=== PATIENT | male | born 1950 | race Caucasian/White ===

== ENCOUNTER 2018-01-01 21:45 | Inpatient (IN) ==
[2018-01-01] MEDS ORDERED: 0.9 % Sodium Chloride 1,000 ML IVC ONE (22:19)
[2018-01-01] MEDS ORDERED: *HR* Heparin 5,000 UNIT/ML VIAL IVP PRN ×2 (22:28)
[2018-01-01] MEDS ORDERED: *HR* Heparin 5,000 UNIT/ML VIAL IVP ONE (22:28)
[2018-01-01 22:29] LABS: Basophils % 0.2 %; Eosinophils % 0.1 %; Hematocrit 48.1 % (37.5-50.1); Hemoglobin 16.4 g/dL (12.9-16.9); Immature Granulocytes % 0.9 % (0-4); Lymphocytes # 1.9 K/mcL (0.6-4.6); Lymphocytes % 10.7 %; Mean Corpuscular HGB Conc 34.1 g/dL (31.6-35.5); Mean Corpuscular Volume 82.2 fL (83.0-100.0); Mean Platelet Volume 10.2 fL (9.4-12.4); Monocytes # 0.8 K/mcL (0.0-1.3); Monocytes % 4.5 %; Neutrophils # 14.6 K/mcL (1.6-8.9); Platelet Count 423 K/mcL (140-400); Red Blood Count 5.85 M/mcL (4.19-5.50); Red Cell Distribution Width 12.1 % (11.5-14.5); Segmented Neutrophils % 83.6 %
[2018-01-01] MEDS ORDERED: Ondansetron 4 MG/2 ML VIAL IVP ONE (22:30)
--- NOTE | 2018-01-01 22:31 | Emergency Department Note ---
Disposition Clinical Impression: ST elevation (STEMI) myocardial infarction Qualifiers: Involved coronary artery: other inferior wall coronary artery Qualified Code(s) : I21.19 - ST elevation (STEMI) myocardial infarction involving other coronary artery of inferior wall Nausea & vomiting Qualifiers: Vomiting type: unspecified Vomiting Intractability: non-intractable Qualified Code(s): R11.2 - Nausea with vomiting, unspecified Disposition: Admitted As Inpatient Condition: Undetermined Time of Disposition: 22:34 General Adult HPI - General Chief complaint: ED Fever Stated complaint: fever/vomiting Time Seen by Provider: 01/01/18 21:57 Source: patient, family Mode of arrival: ambulatory Limitations: no limitations Nursing Notes Reviewed: Yes Vital Signs Reviewed: Yes - History of Present Illness HPI Narrative: 67-year-old male with history of diabetes, hypertension, hyperlipidemia, arrives to the emergency department with nausea and ill feeling over the past 4- 5 days. The patient states he was initially constipated 70 took some MiraLAX and states that since then he has had diarrhea. The patient denies any associated abdominal pain. The patient decided come to the emergency department because he was not feeling well. Family was very concerned about dehydration on the patient. Upon arrival to the emergency department a noted the patient was mildly hypoxic with an O2 saturation of 92%. The patient denied any difficulty breathing or chest pain but does admit to some intermittent episodes of epigastric pain without any defined tenderness on evaluation. The patient was hooked up to the monitor with ST elevation was noted initially. An EKG was immediately performed and the patient was found to have ST elevation in leads 2, 3, aVF. A STEMI alert was called. The patient was made aware and agrees to plan. Pain Scale: 0 - Related Data Home Medications Medication Instructions Recorded Confirmed Advair 250-50 Diskus 12/26/17 Bydureon 12/26/17 Cialis 12/26/17 Fluticasone Propionate 12/26/17 GlipiZIDE 12/26/17 Lansoprazole 12/26/17 Lisinopril-HCTZ 20-12.5 12/26/17 Metformin HCl 12/26/17 Olmesartan Medoxomil 12/26/17 Prostate Health Caplet 12/26/17 Simvastatin 12/26/17 Toprol Xl 12/26/17 Trulicity 12/26/17 Previous Rx's Medication Instructions Recorded Promethazine [Phenergan] 25 mg PO Q6HR PRN #10 tablet 12/26/17 Allergies Allergy/AdvReac Type Severity Reaction Status Date / Time Penicillins AdvReac Hives Verified 12/26/17 11:19 All systems ED: reviewed and negative except as stated. Constitutional: Reports: weakness. Denies: fever, chills Cardiovascular: Denies: chest pain Respiratory: Denies: cough, dyspnea, sputum production Gastrointestinal: Reports: nausea, vomiting, diarrhea. Denies: abdominal pain, constipation, hematemesis, melena, hematochezia Genitourinary: Denies: urgency, dysuria Musculoskeletal: Denies: back pain Integumentary: Denies: rash Neurological: Reports: weakness. Denies: headache, numbness, paresthesias, confusion Past Medical History - Past Medical History Attestation: Yes The following information was validated with the patient. Source: patient, old records reviewed Medical history: Reports: diabetes, hypertension Surgical history: Reports: non-contributory Psychiatric history: Reports: no psych history - Social History Smoking Status: Never smoker Smokeless Tobacco Status: No Alcohol use: Reports: none Drug use: Reports: none Physical Exam - General Limitations: no limitations General appearance: alert, anxious, other (diaphoretic) - Head Head exam: atraumatic, normocephalic, normal inspection - Eye Eye exam: Present: normal appearance, PERRL, EOMI - ENT ENT exam: normal exam, normal oropharynx, mucous membranes dry - Neck Neck exam: Present: normal inspection, full ROM, trachea midline - Chest Chest inspection: Present: normal inspection, symmetric chest wall rise - Respiratory Respiratory exam: Present: normal lung sounds bilaterally - Cardiovascular Cardiovascular exam: Present: regular rate, normal rhythm, normal heart sounds - Abdominal Exam Abdominal exam: Present: soft, Non-Tender. Absent: tenderness, distention, guarding, rebound, rigidity, pulsatile mass, hernia, scar - Extremities Exam Extremities exam: Present: normal inspection, full ROM. Absent: tenderness, pedal edema - Neurological Exam Neurological exam: Present: alert, oriented X3 - Skin Skin exam: Present: warm, dry, intact, normal color Course - Consultations Consultation #1: We spoke with Dr. Huitron and cardiology who will take the patient to the Operations Forester at this time. He was sent the image of the EKG. Time: 22:33 Vital Signs Temperature 97.8 F 01/01/18 21:47 Pulse Rate 88 01/01/18 21:47 Respiratory Rate 20 01/01/18 21:47 Blood Pressure 138/85 01/01/18 21:47 O2 Sat by Pulse Oximetry 92 01/01/18 21:47 Temperature 97.4 F L 01/02/18 03:44 Pulse Rate 80 01/02/18 03:11 Respiratory Rate 14 01/02/18 03:00 Blood Pressure 119/74 01/02/18 03:00 O2 Sat by Pulse Oximetry 98 01/02/18 03:00 Oxygen Delivery Oxygen Delivery Nasal Cannula Medical Decision Making - Lab Data Result diagrams: 01/02/18 03:43 01/02/18 03:43 Lab Results 01/01/18 01/01/18 01/01/18 Range/Units 22:09 22:09 22:09 WBC 17.5 H (4.3-11.1) K/mcL RBC 5.85 H (4.19-5.50) M/mcL Hgb 16.4 (12.9-16.9) g/dL Hct 48.1 (37.5-50.1) % MCV 82.2 L (83.0-100.0) fL MCH 28.0 (28.0-33.3) pg MCHC 34.1 (31.6-35.5) g/dL RDW 12.1 (11.5-14.5) % Plt Count 423 H (140-400) K/mcL MPV 10.2 (9.4-12.4) fL Immature Gran % 0.9 (0-4) % Seg Neutrophils % 83.6 % Lymphocytes % 10.7 % Monocytes % 4.5 % Eosinophils % 0.1 % Basophils % 0.2 % Neutrophils # 14.6 H (1.6-8.9) K/mcL Lymphocytes # 1.9 (0.6-4.6) K/mcL Monocytes # 0.8 (0.0-1.3) K/mcL Eosinophils # 0.0 (0.0-0.6) K/mcL Basophils # 0.0 (0.0-0.2) K/mcL PT 12.4 H (9.4-12.1) Seconds INR 1.1 APTT 29.3 (26.0-36.0) Seconds Sodium 131 L (136-145) mEq/L Potassium 3.7 (3.5-5.1) mEq/L Chloride 93 L (98-107) mEq/L Carbon Dioxide 20 L (23-29) mEq/L BUN 76 H (8-23) mg/dL Creatinine 2.94 H (0.70-1.30) mg/dL Est GFR ( Amer) 26 L (> 60) Est GFR (Non-Af Amer) 22 L (> 60) BUN/Creatinine Ratio 26 (6-26) Glucose 269 H (70-105) mg/dL Calculated Osmolality 304 H (280-300) Calcium 9.0 (8.6-10.3) mg/dL Magnesium (1.6-2.6) mg/dL Total Bilirubin 0.5 (0.3-1.0) mg/dL AST 12 L (13-39) Units/L ALT 17 (7-52) Units/L Alkaline Phosphatase 22 L (34-104) Units/L Troponin I 0.77 H* (< 0.04) ng/mL Serum Total Protein 7.5 (6.4-8.9) g/dL Albumin 4.4 (3.5-5.7) g/dL Globulin 3.1 (2.4-3.5) g/dL Albumin/Globulin Ratio 1.4 (1.1-2.2) 01/01/18 Range/Units 22:09 WBC (4.3-11.1) K/mcL RBC (4.19-5.50) M/mcL Hgb (12.9-16.9) g/dL Hct (37.5-50.1) % MCV (83.0-100.0) fL MCH (28.0-33.3) pg MCHC (31.6-35.5) g/dL RDW (11.5-14.5) % Plt Count (140-400) K/mcL MPV (9.4-12.4) fL Immature Gran % (0-4) % Seg Neutrophils % % Lymphocytes % % Monocytes % % Eosinophils % % Basophils % % Neutrophils # (1.6-8.9) K/mcL Lymphocytes # (0.6-4.6) K/mcL Monocytes # (0.0-1.3) K/mcL Eosinophils # (0.0-0.6) K/mcL Basophils # (0.0-0.2) K/mcL PT (9.4-12.1) Seconds INR APTT (26.0-36.0) Seconds Sodium (136-145) mEq/L Potassium (3.5-5.1) mEq/L Chloride (98-107) mEq/L Carbon Dioxide (23-29) mEq/L BUN (8-23) mg/dL Creatinine (0.70-1.30) mg/dL Est GFR ( Amer) (> 60) Est GFR (Non-Af Amer) (> 60) BUN/Creatinine Ratio (6-26) Glucose (70-105) mg/dL Calculated Osmolality (280-300) Calcium (8.6-10.3) mg/dL Magnesium 1.2 L (1.6-2.6) mg/dL Total Bilirubin (0.3-1.0) mg/dL AST (13-39) Units/L ALT (7-52) Units/L Alkaline Phosphatase (34-104) Units/L Troponin I (< 0.04) ng/mL Serum Total Protein (6.4-8.9) g/dL Albumin (3.5-5.7) g/dL Globulin (2.4-3.5) g/dL Albumin/Globulin Ratio (1.1-2.2) - EKG Data EKG #1 EKG attestation: Yes I reviewed and interpreted this EKG. EKG results narrative: Heart rate 86 beats for minute. Normal sinus rhythm. ST elevation noted in leads 2, 3, aVF consistent with ST elevation NV. Reciprocal changes noted in lead 2, aVL. No other acute changes with the exception of mild ST elevation noted in V1. Attestation Statement - Attestation Attestation: I examined this patient and my medical decision-making was reviewed with the Resident Physician. I agree with the documented findings, disposition and treatment plan as described except to the extent set forth below. Findings consistent with STEMI. This was an atypical presentation and the patient actually had nausea vomiting no completes of any type of chest pain. The patient actually had an EKG immediately on arrival to the emergency department once placed in a bed and it was identified a STEMI. Interventional cardiology was called immediately. Polenta, heparin was started. The patient was taken to the Operations Forester for further intervention. I spent greater than 35 minutes of critical care time resuscitating this acutely ill patient suffering from STEMI. This was excluding billable procedures.
[2018-01-01] MEDS ORDERED: *HR* Ticagrelor 90 MG TABLET ONE (22:32)
[2018-01-01 22:35] LABS: INR 1.1; Prothrombin Time 12.4 Seconds (9.4-12.1)
[2018-01-01] MEDS ORDERED: *HR* Ticagrelor 90 MG TABLET PO ONE (22:36)
[2018-01-01 22:38] LABS: Activated Partial Thrombo Time 29.3 Seconds (26.0-36.0)
[2018-01-01] MEDS: Heparin 25,000 UNIT/500 ML D5W 25,000 UNIT/500 ML BAG IVC SCH (22:38)
[2018-01-01] MEDS ORDERED: 0.9 % Sodium Chloride 1,000 ML ONE (22:41)
[2018-01-01 22:50] LABS: Albumin 4.4 g/dL (3.5-5.7); Albumin/Globulin Ratio 1.4 (1.1-2.2); Bilirubin,Total 0.5 mg/dL (0.3-1.0); Globulin 3.1 g/dL (2.4-3.5); Potassium 3.7 mEq/L (3.5-5.1); Total Protein 7.5 g/dL (6.4-8.9)
[2018-01-01 22:53] LABS: Troponin I 0.77 ng/mL (< 0.04)
[2018-01-01] MEDS ORDERED: 0.9 % Sodium Chloride 2,000 ML ONE (22:53)
[2018-01-01] MEDS ORDERED: Verapamil 5 MG/2 ML VIAL ONE (22:53)
[2018-01-01] MEDS ORDERED: *HR* Heparin 10,000 UNIT/10 ML VIAL ONE (22:53)
[2018-01-01] MEDS ORDERED: Heparin 1,000 UNITS/500 mL 500 ML ONE (22:53)
[2018-01-01] MEDS ORDERED: ISOVUE-370 200 ML INFUS..BTL IV ONE (22:54)
[2018-01-01] MEDS ORDERED: Nitroglycerin 1,000 MCG/10 ML VIAL IV ONE (22:54)
--- NOTE | 2018-01-01 23:13 | Pre-Sedation Evaluation ---
Pre-sedation evaluation - Pre-sedation checklist Date of procedure: 01/01/18 Procedure: [facility] Recent Vitals: Last Vital Signs Temp 97.8 F 01/01/18 22:03 Pulse 83 01/01/18 23:00 Resp 16 01/01/18 23:05 BP 162/87 01/01/18 23:05 Pulse Ox 98 01/01/18 23:00 H&P (including ROS) documented in medical record: Yes Previous reaction to sedatives/anesthetics: Unknown Dietary Status: unknown Airway Assessment: Patient can open mouth completely, TMJ function normal ASA Classification *see protocol: CLASS IV-Severe systemic disease/constant threat to pt's life Plan of Care: Pt appropriate candidate for procedure/moderate/conscious sedation , Risks/benefits of procedure/sedation discussed w/ patient/family, If not NPO; Risk of intake outweiged by necessity to perform procedure Cardiac Registry (Cardio Only) - Functional Capacity Functional Capacity: Unknown - Clincal Frailty Scale Clinical Frailty Scale: Vulnerable
--- NOTE | 2018-01-01 23:14 | Event Note ---
Date of Encounter: 01/02/18 Time of Encounter: 22:00 - Cardiology Event Note atypical presentation n/v for several days without any chest/jaw/arm discomfort - acceptable delay
[2018-01-01] MEDS ORDERED: Nitroglycerin 0.4 MG TAB.SUBL SL PRN (23:15)
[2018-01-01] MEDS ORDERED: Ondansetron 4 MG/2 ML VIAL IVP PRN (23:15)
--- NOTE | 2018-01-01 23:15 | Cardiology History & Physical ---
Date of Encounter: 01/02/18 Time of Encounter: 23:15 Assessment and Plan (1) ST elevation (STEMI) myocardial infarction Current Visit: Yes Status: Acute A/R/B of LHC discussed with her including 1% chance of CVA/bleeding/. Pt aware and agreeable with proceeding. Aspirin, brilinta, heparin given. EF assessment will be completed with echo. Total critical care time: 1.5 hours The assessment and plan as outlined above was discussed with the patient and/or family members who expressed understanding and agreement. All questions were answered. Qualifiers: Involved coronary artery: other inferior wall coronary artery Qualified Code(s): I21.19 - ST elevation (STEMI) myocardial infarction involving other coronary artery of inferior wall (2) Acute kidney injury Current Visit: Yes Status: Acute Appears to be SANDOR with prolonged N/V. IVF with NS. Judicious use of contrast. The assessment and plan as outlined above was discussed with the patient and/ or family members who expressed understanding and agreement. All questions were answered. History of Present Illness Chief complaint: nausea vomiting HPI: Mr. Cruz is a 67 year old male w no previous cardiac history presents with nausea / vomiting without chest/jaw/arm discomfort. 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 No chest/jaw/arm discomfort. DM, HTN no history of CKD Past Med Surg Social Fam HX - Past Medical History Medical history: diabetes, hypertension Psychiatric history: no psych history - Past Surgical History Surgical History: non-contributory - Social History Smoking Status: Never smoker Smokeless Tobacco Status: No Alcohol use: none Drug use: none Medications and Allergies 3 Allergy/AdvReac Type Severity Reaction Status Date / Time Penicillins AdvReac Hives Verified 12/26/17 11:19 All Systems Review: The remainder of the systems were reviewed and are negative - Constitutional Constitutional: no chills, no fever(s) - EENT Nose, mouth and throat: no epistaxis, no odynophagia - Cardiovascular Cardiovascular: no claudication, no diaphoresis - Respiratory Respiratory: no hemoptysis, no wheezing - Gastrointestinal Gastrointestinal: no hematemesis, no hematochezia - Genitourinary Genitourinary: no hematuria, no nocturia - Musculoskeletal Musculoskeletal: no arthralgias, no myalgias - Integumentary Integumentary: no rash, no unusual bruising - Neurological Neurological: no syncope, no tingling - Psychiatric Psychiatric: no hallucinations, no panic attacks - Hematological/Lymphatic Hematologic/Lymphatic: no easy bleeding, no easy bruising Physical Examination Vital Signs, Last 4 Hours Temp Pulse Resp BP Pulse Ox 01/01/18 23:05 16 162/87 01/01/18 23:00 83 20 170/92 98 01/01/18 22:45 84 18 153/86 97 01/01/18 22:28 86 20 162/89 96 01/01/18 22:03 97.8 F 88 20 138/85 96 01/01/18 21:47 97.8 F 88 20 138/85 92 General: Conversant HEENT: Atraumatic Neck: No JVD Cardiac: Reg Rate and Rhythm Lungs: Normal Breath Sounds Neuro: Alert and responsive Abdomen: Soft Skin: No rashes noted on visualized skin Musculoskeletal: No Chest Wall Tenderness Extremities: No Edema Results 01/02/18 03:43 01/02/18 03:43 Lab Results 01/01/18 01/01/18 01/01/18 22:09 22:09 22:09 WBC 17.5 H Hgb 16.4 Hct 48.1 Plt Count 423 H INR 1.1 APTT 29.3 Sodium 131 L Potassium 3.7 Chloride 93 L Carbon Dioxide 20 L BUN 76 H Creatinine 2.94 H Glucose 269 H Calcium 9.0 Magnesium Total Bilirubin 0.5 AST 12 L ALT 17 Alkaline Phosphatase 22 L Troponin I 0.77 H* 01/01/18 22:09 WBC Hgb Hct Plt Count INR APTT Sodium Potassium Chloride Carbon Dioxide BUN Creatinine Glucose Calcium Magnesium 1.2 L Total Bilirubin AST ALT Alkaline Phosphatase Troponin I - EKG Interpretation EKG results cardiology: personally reviewed (inferior current of injury)
[2018-01-01] MEDS ORDERED: *HR* FentaNYL (PF) 100 MCG/2 ML VIAL ONE (23:18)
[2018-01-01] MEDS ORDERED: *HR* Midazolam HCl 5 MG/5 ML VIAL IVP ONE (23:18)
[2018-01-01] MEDS ORDERED: Dextrose Gel 15 GM/37.5 ML TUBE PO PRN ×2 (23:19)
[2018-01-01] MEDS ORDERED: *HR* Dextrose 50 % in Water (Syg) 50 ML SYRINGE IVP PRN (23:19)
[2018-01-01] MEDS ORDERED: D5% in Water 1,000 ML IVC PRN (23:19)
[2018-01-01] MEDS ORDERED: Tirofiban 12.5 MG/250ML 12.5 MG/250 ML BAG ONE (23:41)
[2018-01-01] MEDS ORDERED: Ondansetron 4 MG/2 ML VIAL ONE (23:58)
[2018-01-02] MEDS ORDERED: *HR* Promethazine 25 MG/ML VIAL IVP PRN (00:12)
[2018-01-02] MEDS ORDERED: Tirofiban 12.5 MG/250ML 12.5 MG/250 ML BAG IVC SCH (00:15)
--- NOTE | 2018-01-02 00:16 | Event Note ---
Date of Encounter: 01/02/18 Time of Encounter: 00:15 - Cardiology Event Note Difficult access. Nonpalpable right femoral pulse. Right radial by US guidance. Ostial proximal LAD 70%. RCA culprit - proximal 99%, mid 99% heavily calcified, PDA 95%. PTCA of proximal RCA with lisa wire. Unable to pass lisa wire through mid RCA stenosis and 1.2 air sampler could not pass through mid RCA stenosis. RCA unamenable to intervention at this time, recommend CABG in this diabetic. If declined for CABG, consider high risk PCI w rotablator of RCA with possible Impella support with continued improvement in renal function. Patient stable currently, will consult CT surgery for CABG in the morning.
--- NOTE | 2018-01-02 00:44 | Invasive Diagnostic Lab Proc ---
Name: Federico Cruz Date of Study: 01/01/2018 Date: 1950 Ht: 68.1in Medical Record#: [id number] Age: 67 Wt: 219.80lb Gender: Male BSA: 2.13 Order #: [id number] BMI: 33.31 Physicians Procedure Physician: Luis A Huitron MD, [facility] Referring MD: Referring MD: Staff Name Position Time In Madhu Marinelli RN Monitor 11:17 PM Malathi Snow RN Dolly Operator 11:17 PM Suly Esparza RT Scrub 11:17 PM Indications Indication STEMI Procedures Performed Procedure PRQ CARD REVASC UT 1 VSL CORONARY ARTERY ANGIO S&I Pre-Procedure Checklist Informed consent is complete signed and on chart. H&P is on chart. ID band is on and ID verified with patient. Patient NPO for procedure The procedure was described for the patient and questions were answered. Blood Pressure: 138/85 ECG is on chart. Rhythm: NSR Plan of Care Patient will tolerate the procedure without complications. Adequate level of comfort will be maintained. Hemodynamics will remain stable Patient will recover from procedure without complications. Respiratory function will be maintained. Cardiac rhythm will remain stable. Patient temperature will be maintained. Patient and/or family have verbalized understanding of the procedure. Patient Education Chief Complaint/Reason for Test: Cardiac Cath Developmental Category: Geriatric (65+ years) Developmentally Appropriate for Age: Yes Learning Barriers: None Education Needs: Procedure Education Method: Verbal Information Taught: Cardiac Cath Educational Evaluation: Able to repeat information Intravenous Access Time IV Size Location DC'd Fluid/Drip Rate Units RN 10:57 PM 18g 1 1/4" Patent On Arrival Rt Antecubital 10:57 PM 18g 1 1/4" Patent On Arrival Lt Antecubital 0.9NaCl 25 ml/hr Madhu Marinelli RN Allergies Penicillins Vital Signs Time BP (mmHg) HR (bpm) O2 Sat. RR (bpm) LOC 10:59 PM 138 / 85 86 96 % 20 5 = Fully awake and oriented or at pre-proc level 11:18 PM / % 4 = Oriented but drowsy 11:18 PM / % 4 = Oriented but drowsy 11:33 PM / % 4 = Oriented but drowsy 12:02 AM 145 / 100 82 99 % 13 12:09 AM 184 / 116 85 99 % 20 11:18 PM 175 / 98 84 96 % 20 11:22 PM 140 / 76 96 91 % 19 11:27 PM 127 / 78 86 98 % 17 11:32 PM 114 / 69 90 95 % 22 11:38 PM 129 / 80 82 96 % 19 11:42 PM 141 / 91 84 97 % 19 11:47 PM 148 / 93 87 96 % 19 11:52 PM 145 / 91 93 98 % 15 11:57 PM 140 / 88 87 98 % 17 Procedural Medications Time Medication Dose Units Method Given By 11:19 PM Oxygen 2 L/min nasal cannula Malathi Snow RN 11:19 PM Versed 2 mg Intravenous Malathi Snow RN 11:19 PM Fentanyl 50 mcg Intravenous Malathi Snow RN 11:22 PM Lidocaine 2% 0.5 ml Subcutaneous Luis A Huitron MD, F[facility] 11:28 PM Nitroglycerin 200 mcg 11:28 PM Verapamil 2.5 mg Intraarterial Luis A Huitron MD, FACC 11:59 PM Zofran 4 mg Intravenous Malathi Snow RN 12:04 AM Fentanyl 25 mcg Intravenous Malathi Snow RN 11:37 PM Aggrastat Bolus: 50 ml Intravenous Malathi Snow RN 11:37 PM Aggrastat 12.5mg/250ml 9 ml/hr Intravenous Malathi Snow RN ASA Classification: Emergent Procedure: ASA score is assumed Clemente Score Preprocedure Postprocedure Activity 2- Moves 4 extremities sustained head lift Activity 2- Moves 4 extremities sustained head lift Circulation 2- SBP +/= 20 points of pre-anesthetic level Circulation 2- SBP +/= 20 points of pre-anesthetic level Consciousness 2- Awake and alert oriented x 3 Consciousness 2- Awake and alert oriented x 3 O2 Saturation 2- Able to maintain O2 satruation of 92% on room air O2 Saturation 2- Able to maintain O2 satruation of 92% on room air Respiratory 2- Able to deep breathe and cough well Respiratory 2- Able to deep breathe and cough well Total Score 10 Total Score 10 Contrast Agent: Isovue Diagnostic Contrast: 83 ml Total Contrast: 83 ml Fluoro Dose: 9109 mGy Activated Clotting Time Time Seconds to Clot 11:42 PM 262 Procedure Log Time Note Enter By 10:53 PM CathStat 11:10 PM Physician arrived 23:10 ainsley 11:10 PM Brendon and radha completed [facility] 11:10 PM Sign in performed according to hospital policy. Informed consent was obtained. [facility] 11:10 PM Procedure start 23:10 [facility] 11:10 PM Pt arrived to supervisor [facility] 2 at 23:10 [facility] 11:16 PM Vitals capture started with the following parameters, Patient=Adult, Interval=5 min, Initial Blboutpz=659 mmHg, Deflation Rate=5 mmHg, Cuff placed on Right Arm 11:17 PM Madhu Marinelli RN Position: Monitor Time in: : [facility] 11: PM Malathi Snow RN Position: Dolly Operator Time in: : [facility] 11: PM Suly Esparza Position: Scrub Time in: : [facility] 11:17 PM Patient charges- Angio tray pack, Navilyst 3mm J, Pulse Oximetry and ACIST tubing and transducer [facility] : PM Hair removed from procedure site in emergency department using clippers. Right wrist/right groin prepped with Chloraprep by Malathi Snow RN, then patient was draped. Skin intact. [facility] :18 PM HR=84 bpm, LOOA=534/98 mmhg, SpO2=96.0 %, Resp=20 B/min 11:18 PM Time: 23:18 Patient comfortable and pain free: Yes [facility] :18 PM Time: 23:18LOC: 4 = Oriented but drowsy [facility] PM Time: 23:19 Oxygen on at 2 L/min per nasal cannula by Malathi Snow RN [facility] PM Time: :19 Versed 2 mg Intravenous Given by Malathi Snow RN [facility] PM Time: 23:19 Fentanyl 50 mcg Intravenous Given by Malathi Snow RN [facility] : PM Clinical Presentation: STEMI or equivalent [facility] : PM Time out was performed according to hospital policy. Conscious sedation and anesthesia was achieved (see medication log with in this report above) [facility] 11: PM Critical cardiac patient with acute UT was brought emergently to the cardiac photo lab specialist for immediate coronary angiography and intervention if clinically indicated. [facility] : PM Time: 23:22 0.5 ml Lidocaine 2% to right radial Subcutaneous Given by Luis A Huitron MD, [facility] : PM HR=96 bpm, NMHA=348/76 mmhg, SpO2=91.0 %, Resp=19 B/min, Comment=nsr 11:25 PM Difficult access. [email or web address] 11:27 PM HR=86 bpm, IXLG=541/78 mmhg, SpO2=98.0 %, Resp=17 B/min, Comment=nsr 11:28 PM Access obtained by percutaneous puncture. 6Fr 11cm Terumo Glidesheath sheath placed in right Radial artery. [id number] [facility] 11:28 PM Time: 23:28 Patient given , 200 mcg Nitroglycerin, and 2.5 mg Verapamil Intraarterial by Luis A Huitron MD, [facility]. This is given to reduce risk of vessel spasm and thrombosis. [facility] 11:29 PM 5Fr TIG catheter inserted over the wire [facility] lparsley 11:32 PM Catheter removed lparsley 11:32 PM 5Fr FL3.5 catheter inserted over the wire [id number] lparsley 11:32 PM HR=90 bpm, XELS=673/69 mmhg, SpO2=95.0 %, Resp=22 B/min 11:33 PM Time: 23:18LOC: 4 = Oriented but drowsy [facility] 11:33 PM Time: 23:18 Patient comfortable and pain free: Yes [facility] 11:33 PM LCA angiography performed in multiple views. [facility]ley 11:34 PM Catheter removed lparsley 11:35 PM 6Fr JR 4 Cordis guide catheter was used to cannulate the PCI vessel successfully. reused? No lparsley 11:35 PM .014 [place] 190cm guide wire across target lesion- successful. reused? No lparsley 11:35 PM Inflation device was opened. lparsley 11:36 PM Recorded Pressure: Ao, HR=85, Condition=Condition 1 (Aorta) Ao 99/48/71 11:36 PM RCA angiography performed in multiple views. lparsley 11:36 PM Recorded Pressure: Ao, HR=83, Condition=Condition 1 (Aorta) Ao 104/62/80 11:38 PM HR=82 bpm, DWBQ=849/80 mmhg, SpO2=96.0 %, Resp=19 B/min, Comment=nsr 11:38 PM Lesion found in Proximal RCA. Pre Stenosis: 99 Pre ANGELLA Flow: 1: Slow Penetration without Perfusion lparsley 11:38 PM Right Coronary, Right Posterior Descending Arteries with Right Posterolateral and Acute Marginal branches with 99 % stenosis. If graft is supplying this area, 0 % stenosis lparsley 11:39 PM 2.0 mm x 12 mm Emerge Monorail balloon across target lesion- successful. reused? No lparsley 11:40 PM Recorded Pressure: Ao, HR=87, Condition=Condition 1 (Aorta) Ao 112/59/82 11:42 PM HR=84 bpm, AIBA=822/91 mmhg, SpO2=97.0 %, Resp=19 B/min, Comment=nsr 11:42 PM At 23:42 the ACT was 262 seconds. lparsley 11:44 PM .014 [place] 180cm guide wire across target lesion- successful. reused? No (Second Wire) lparsley 11:44 PM Recorded Pressure: Ao, HR=86, Condition=Condition 1 (Aorta) Ao 119/73/96 11:45 PM PCI Status Emergency lparsley 11:46 PM Balloon inflated @ 14 nata for 26 seconds [email or web address] 11:47 PM HR=87 bpm, JZGG=749/93 mmhg, SpO2=96.0 %, Resp=19 B/min, Comment=nsr 11:48 PM Lesion found in Mid RCA. Pre Stenosis: 99 Pre ANGELLA Flow: 1: Slow Penetration without Perfusion lparsley 11:48 PM Lesion found in Right PDA. Pre Stenosis: 99 Pre ANGELLA Flow: 1: Slow Penetration without Perfusion lparsley 11:48 PM Coronary Dominance: right lparsley 11:48 PM Time: 23:33 Patient comfortable and pain free: Yes lparsley 11:48 PM Time: 23:33LOC: 4 = Oriented but drowsy lparsley 11:48 PM Recorded Pressure: Ao, HR=84, Condition=Condition 1 (Aorta) Ao 124/77/100 11:52 PM HR=93 bpm, FMBU=622/91 mmhg, SpO2=98.0 %, Resp=15 B/min, Comment=nsr 11:53 PM Balloon catheter removed intact. [email or web address] 11:53 PM 1.2 mm x 15 mm Emerge Monorail balloon across target lesion- successful. reused? No [email or web address] 11:57 PM Unable to cross calcified mid RCA lesion with a 1.2 mm balloon. [email or web address] 11:57 PM HR=87 bpm, VNWK=369/88 mmhg, SpO2=98.0 %, Resp=17 B/min, Comment=nsr 11:59 PM Unable to pass a lisa wire through calcified mid RCA. [email or web address] 11:59 PM Time: 23:59 Zofran 4 mg Intravenous Given by Malathi Snow RN [email or web address] 12:00 AM Balloon catheter removed intact. [email or web address] 12:02 AM 2.25 mm x 15mm NC Emerge balloon across target lesion- successful. reused? No [email or web address] 12:02 AM HR=82 bpm, OKXG=030/100 mmhg, SpO2=99.0 %, Resp=13 B/min, Comment=nsr 12:03 AM Balloon inflated @ 16 nata for 28 seconds [email or web address] 12:04 AM Time: 00:04 Fentanyl 25 mcg Intravenous Given by Malathi Snow RN [email or web address] 12:04 AM Recorded Pressure: Ao, HR=86, Condition=Condition 1 (Aorta) Ao 151/96/122 12:06 AM Guide wire removed intact. [email or web address] 12:06 AM Guide catheter removed intact. [email or web address] 12:09 AM HR=85 bpm, VHKR=494/116 mmhg, SpO2=99.0 %, Resp=20 B/min 12:11 AM Procedure completed at 00:11 01/02/2018 [email or web address] 12:11 AM Did you address ANGELLA flow and Dominance? Yes [email or web address] 12:12 AM Sign out completed: Radiation Dose 1663 mGy, 9109 cGy/cm2 Fluoro Time: 16.3 Isovue 370 - 200ml contrast 83 ml given by Luis A Huitron MD, [facility]. Complications: None. The patient was discharged out of the photo lab specialist in stable condition. Cardiac Rehab Consult needed: YesConfirmed administered medications: Yes [email or web address] 12:15 AM Isovue 370 - 200ml,1 Bottle(s) used. [email or web address] 12:15 AM Arterial sheath pulled, Vasc Band closure device used and was Successful S/N. jcallihan 12:16 AM 13 ml air in Vasc Band. [email or web address] 12:16 AM Estimated Blood Loss: minimal [email or web address] 12:16 AM Post ECG NSR [email or web address] 12:17 AM Post Blood Pressure 151/96 [email or web address] 12:18 AM 00:17 Post Pulses Bilateral radial 2+ [email or web address] 12:24 AM Information taught Cardiac Cath, PCI, and Vasc Band jcallihan 12:24 AM Lesion found in Proximal LAD. Pre Stenosis: 70 Pre ANGELLA Flow: [email or web address] 12:25 AM Education needs Procedure, Plan of Care, and Responsibilities of Patient in Care [email or web address] 12:25 AM Learning barriers :None jcallihan 12:25 AM Education Methods [email or web address] 12:25 AM Education evaluation Able to repeat information [facility] 12:26 AM Site status No bleeding/hematoma - Rt Wrist as reported by Suly Esparza RT at 00:25 [email or web address] 12:26 AM Report given to Migel BARNARD Pt taken to ICU Room #9. 00:26 [email or web address] 12:26 AM Plavix, Effient or Brilinta given Yes [email or web address] 12:26 AM Patient out of room: 00:26 [email or web address] 12:26 AM Family placed in consult room. allihan 12:26 AM Complications: None [email or web address] 11:37 PM Time: 23:37 Aggrastat Bolus: 50 ml Intravenous Given by Malathi Snow RN Rosa pump (01/01/18) [email or web address] 11:37 PM Time: 23:37 Aggrastat 12.5mg/250ml 9 ml/hr Intravenous Given by Malathi Snow RN Rosa pump (01/01/18) [email or web address] Complications Complication None None Hemodynamics Pressures Site Systolic/A Wave Diastolic/V Wave Mean AO 99 48 71 AO 104 62 80 AO 112 59 82 AO 119 73 96 AO 124 77 100 AO 151 96 122 Post Procedure Information Blood Pressure: 151/96 mmHg Rhythm: NSR Post procedural instructions were given Closure Device Time Device Success/Fail 01/02/2018 12:05:00 PM Mechanical Compression Successful Site Checks Time Location Status Staff Sheath In? Note 12:25 AM Rt Wrist No bleeding/hematoma Suly Esparza Pulses Time Site Pre-Procedure Post-Procedure Note 01/01/2018 10:58:00 PM Bilateral DP & PT 2+ 01/01/2018 10:58:00 PM Bilateral radial 2+ 01/01/2018 10:58:00 PM Rt Radial Normal plethysmography's Test 12:17:00 AM Bilateral radial 2+ Updated by Madhu Marinelli RN on 01/02/2018 12:35:34 AM electronically signed on 01/02/2018 12:36:24 AM with status of Final
[2018-01-02] MEDS: 0.9 % Sodium Chloride 1,000 ML IVC SCH ×4 (00:45→21:16)
[2018-01-02] MEDS: *HR* OxyCODONE/APAP 10/325 TABLET PO PRN ×2 (01:04→06:02)
[2018-01-02] MEDS: Heparin 25,000 UNIT/500 ML D5W 25,000 UNIT/500 ML BAG IVC SCH ×2 (02:06→20:20)
[2018-01-02] MEDS: Insulin LISPRO 300 UNITS/3 ML VIAL SQ SCH ×4 (02:07→16:32)
[2018-01-02 03:55] LABS: Basophils % 0.2 %; Eosinophils % 0.1 %; Hematocrit 45.2 % (37.5-50.1); Hemoglobin 15.6 g/dL (12.9-16.9); Immature Granulocytes % 0.6 % (0-4); Lymphocytes # 1.6 K/mcL (0.6-4.6); Lymphocytes % 11.3 %; Mean Corpuscular HGB Conc 34.5 g/dL (31.6-35.5); Mean Corpuscular Hemoglobin 28.6 pg (28.0-33.3); Mean Corpuscular Volume 82.9 fL (83.0-100.0); Mean Platelet Volume 9.9 fL (9.4-12.4); Monocytes # 0.6 K/mcL (0.0-1.3); Monocytes % 4.1 %; Neutrophils # 11.7 K/mcL (1.6-8.9); Platelet Count 342 K/mcL (140-400); Red Blood Count 5.45 M/mcL (4.19-5.50); Red Cell Distribution Width 12.2 % (11.5-14.5); Segmented Neutrophils % 83.7 %
[2018-01-02 04:16] LABS: Calcium 8.3 mg/dL (8.6-10.3); Potassium 3.4 mEq/L (3.5-5.1)
[2018-01-02] MEDS: Budesonide/Formoterol 80/4.5 MDI IH SCH ×2 (07:48→20:26)
[2018-01-02] MEDS: Ondansetron 4 MG/2 ML VIAL IVP PRN (08:21)
[2018-01-02] MEDS: Aspirin 81 MG TAB.CHEW PO SCH (08:21)
--- NOTE | 2018-01-02 12:40 | Cardiology Progress Note ---
Date of Encounter: 01/02/18 Time of Encounter: 12:38 Assessment and Plan (1) ST elevation (STEMI) myocardial infarction Current Visit: Yes Status: Acute S/P emergent LHC last night--ostial proximal LAD 70%. RCA culprit - proximal 99% , mid 99% heavily calcified, PDA 95%. PTCA of pRCA with lisa wire. RCA unamenable to intervention. CABG recommended. If declined for CABG, consider high risk PCI w rotablator of RCA with possible Impella support with continued improvement in renal function. Pt currently denies chest pain or dyspnea and states he has been able to keep down food this morning, which is the first time all week. Continue heparin gtt, ASA, Statin. Start low dose BB. Right radial access site healing well. No bleeding, hematoma or ecchymosis noted. TTE pending. CT surgery consult pending. Further recs pending CT surgery evaluation. Qualifiers: Involved coronary artery: other inferior wall coronary artery Qualified Code(s): I21.19 - ST elevation (STEMI) myocardial infarction involving other coronary artery of inferior wall (2) Acute kidney injury Current Visit: Yes Status: Acute Appears to be SANDOR with prolonged N/V. IVF with NS. Judicious use of contrast. Creatinine improved today 2.06, was 2.94 last night. Continue IVF. Discussed with Dr. Huitron. Nephrology consult not warranted at this time given improving renal function. (3) Diabetes mellitus Current Visit: Yes Status: Chronic Sliding scale while inpt. Qualifiers: Diabetes mellitus type: type 2 Diabetes mellitus fpc insulin use: with fpc use Diabetes mellitus complication status: without complication Qualified Code(s): E11.9 - Type 2 diabetes mellitus without complications; Z79.4 - USP (current) use of insulin Discussion w patient/family: The assessment and plan as outlined above was discussed with the patient and/or family members who expressed understanding and agreement. All questions were answered. Thank you for involving us in the care of your patient. Please call with any questions. I will discuss all the above with Dr. Huitron and make changes as necessary. Subjective Principal diagnosis: STEMI Interval history: S/P STEMI last night. LHC--ostial proximal LAD 70%. RCA culprit - proximal 99%, mid 99% heavily calcified, PDA 95%. PTCA of proximal RCA with lisa wire. 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 RCA unamenable to intervention at this time, recommend CABG in this diabetic. If declined for CABG, consider high risk PCI w rotablator of RCA with possible Impella support with continued improvement in renal function. Creatinine mildly improved today--2.06, was 2.94 yesterday, SANDOR. Pt currently denies chest pain or dyspnea and states he has been able to keep down food this morning, which is the first time all week. TTE pending. CT surgery consult pending. Objective Vital Signs, Last 4 Hours Temp Pulse Resp BP Pulse Ox 01/02/18 11:00 97.4 F L 93 20 141/87 96 01/02/18 10:44 91 18 140/75 01/02/18 09:48 90 20 146/78 01/02/18 08:48 97.6 F 85 20 129/83 Vital Signs Temp Pulse Resp BP Pulse Ox 01/02/18 11:00 97.4 F L 93 20 141/87 96 01/02/18 10:44 91 18 140/75 01/02/18 09:48 90 20 146/78 01/02/18 08:48 97.6 F 85 20 129/83 01/02/18 07:49 18 96 01/02/18 07:32 97.6 F 01/02/18 07:11 85 01/02/18 03:44 97.4 F L 01/02/18 03:11 80 01/02/18 03:00 83 14 119/74 98 01/02/18 02:00 92 12 146/89 98 01/02/18 01:00 97.4 F L 88 12 155/104 99 01/01/18 23:05 16 162/87 01/01/18 23:00 83 20 170/92 98 01/01/18 22:45 84 18 153/86 97 01/01/18 22:28 86 20 162/89 96 01/01/18 22:03 97.8 F 88 20 138/85 96 01/01/18 21:47 97.8 F 88 20 138/85 92 Intake and Output 01/01/18 01/02/18 01/02/18 23:59 07:59 15:59 Intake Total 1347 / 1347 Output Total 900 / 900 550 / 550 Balance -900 / -900 797 / 797 Intake: IV Fluids 1227 / 1227 0.9 % Sodium Chloride 1,000 ML 1000 / 1000 @ 100 mls/hr IVC .Q10H EL[facility]ABETH Rx#: [id number] Heparin 25,000 UNIT/500 ML D5W 227 / 227 25,000 unit In 500 ml @ 10 UNIT /KG/HR 19.958 mls/hr IVC .Q24H [facility]ETH Rx#:[id number] Oral 120 / 120 Output: Urine 500 / 500 Catheter 400 / 400 550 / 550 Other: Weight 99.79 kg Blood Glucose* 252 376 General: Conversant, No Apparent Distress HEENT: Atraumatic, Normocephaly, Mucus Membranes Moist Neck: No JVD, Normal carotid pulses Cardiac: Reg Rate and Rhythm, Normal S1 and S2, No Murmur Lungs: Normal Breath Sounds, No Wheeze, Rales, Rhonchi Neuro: Alert and responsive Abdomen: Soft, Non-Tender Skin: Other (right radial access site healing well. No bleeding, hematoma or ecchymosis noted.) Musculoskeletal: No Chest Wall Tenderness Extremities: No Clubbing, No Cyanosis, No Edema, Normal Pulses Results 01/02/18 03:43 01/02/18 03:43 Lab Results 01/02/18 01/02/18 03:43 03:43 WBC 14.0 H Hgb 15.6 Hct 45.2 Plt Count 342 Sodium 132 L Potassium 3.4 L Chloride 101 Carbon Dioxide 18 L BUN 66 H Creatinine 2.06 H Glucose 158 H Calcium 8.3 L Short CBC 01/02/18 01/01/18 Range/Units 03:43 22:09 WBC 14.0 H 17.5 H (4.3-11.1) K/mcL Hgb 15.6 16.4 (12.9-16.9) g/dL Hct 45.2 48.1 (37.5-50.1) % Plt Count 342 423 H (140-400) K/mcL Neutrophils # 11.7 H 14.6 H (1.6-8.9) K/mcL BMP 01/02/18 01/01/18 Range/Units 03:43 22:09 Sodium 132 L 131 L (136-145) mEq/L Potassium 3.4 L 3.7 (3.5-5.1) mEq/L Chloride 101 93 L (98-107) mEq/L Carbon Dioxide 18 L 20 L (23-29) mEq/L BUN 66 H 76 H (8-23) mg/dL Creatinine 2.06 H 2.94 H (0.70-1.30) mg/dL Glucose 158 H 269 H (70-105) mg/dL Calcium 8.3 L 9.0 (8.6-10.3) mg/dL Cardiac Enzymes 01/01/18 Range/Units 22:09 Troponin I 0.77 H* (< 0.04) ng/mL Liver Function 01/01/18 Range/Units 22:09 Total Bilirubin 0.5 (0.3-1.0) mg/dL AST 12 L (13-39) Units/L ALT 17 (7-52) Units/L Alkaline Phosphatase 22 L (34-104) Units/L Albumin 4.4 (3.5-5.7) g/dL Impressions Chest X-Ray 01/01/18 22:20 IMPRESSION: No acute process. D/ / Baljinder Strauss MD / Baljinder Strauss MD Interpreting Provider: Baljinder Strauss MD Active Medications Acetaminophen (Tylenol) 500 mg PO Q6H PRN PRN Reason: Mild Pain Stop: 07/03/18 23:16 Aspirin (Aspirin) 81 mg PO DAILY [facility] Stop: 07/04/18 09:01 Last Admin: 01/02/18 08:21 Dose: 81 mg Budesonide/Formoterol Fumarate (Symbicort) 2 puff IH BIDR ELIZABETH PRN Reason: Protocol Stop: 07/04/18 10:01 Last Admin: 01/02/18 07:48 Dose: 2 puff Dextrose/Water (Dextrose 50% (Syg)) 25 ml IVP AD PRN PRN Reason: Hypoglycemia Stop: 07/03/18 23:20 Diphenhydramine HCl (Benadryl) 25 mg PO HS PRN PRN Reason: Insomnia Stop: 07/04/18 00:23 Glucagon (Glucagen) 1 mg IM ONCE PRN PRN Reason: Hypoglycemia Stop: 07/03/18 23:20 Glucose (Gluctose) 15 gm PO ONCE PRN PRN Reason: Hypoglycemia Stop: 07/03/18 23:20 Glucose (Gluctose) 30 gm PO ONCE PRN PRN Reason: Hypoglycemia Stop: 07/03/18 23:20 Heparin Sodium (Porcine) (Heparin) 4,000 unit IVP Q6HR PRN PRN Reason: SEE COMMENTS Stop: 07/03/18 22:29 Heparin Sodium (Porcine) (Heparin) 2,000 unit IVP Q6H PRN PRN Reason: SEE COMMENTS Stop: 07/03/18 22:29 Heparin Sodium/Dextrose (Heparin 25,000 Unit/500 Ml D5w) 25,000 unit in 500 mls @ 19.958 mls/hr IVC .Q24H ELIZABETH; 10 UNIT/KG/HR PRN Reason: Protocol Stop: 07/03/18 22:31 Last Titration: 01/02/18 09:01 Dose: 11.97 unit/kg/hr, 23.9 mls/hr Dextrose (Dextrose 5%) 1,000 mls @ 100 mls/hr IVC .Q10H PRN PRN Reason: HYPOGLYCEMIA Stop: 07/03/18 23:20 Sodium Chloride (0.9 % Sodium Chloride) 1,000 mls @ 100 mls/hr IVC .Q10H [facility] Stop: 07/03/18 23:31 Last Infusion: 01/02/18 10:22 Dose: Infused Insulin Human Lispro (Humalog) 0 units SQ TIDAC [facility] PRN Reason: Protocol Stop: 07/04/18 07:31 Last Admin: 01/02/18 11:37 Dose: 14 units Morphine Sulfate (Morphine Sulfate) 4 mg IVP Q3H PRN PRN Reason: Severe Pain (7-10) Stop: 07/03/18 23:16 Ondansetron HCl (Zofran) 8 mg IVP Q8HR PRN PRN Reason: Nausea And Vomiting Stop: 07/03/18 23:16 Last Admin: 01/02/18 08:21 Dose: 8 mg Oxycodone/Acetaminophen (Percocet 10/325) 1 each PO Q4HR PRN PRN Reason: Pain Stop: 07/04/18 00:22 Last Admin: 01/02/18 06:02 Dose: 1 each Promethazine HCl (Phenergan) 25 mg IVP Q8HR PRN PRN Reason: Nausea And Vomiting Stop: 07/04/18 00:13 Rosuvastatin Calcium (Crestor) 40 mg PO HS [facility] Stop: 07/04/18 21:01 - Imaging and Cardiology Echo: pending Cardiac cath: report reviewed - EKG Interpretation EKG results cardiology: other (12 hr tele AVG HR 85, SR, no significant pauses or arrhythmias noted.) Consult Discharge Plan - Plan Referrals: Aamir Ireland DO [Primary Care Provider] -
[2018-01-02 17:14] LABS: Bilirubin,Urine Negative (Negative); Blood,Urine Negative (Negative); Clarity,Urine Clear (Clear); Color,Urine Yellow (Yellow); Glucose,Urine (UA) 250 mg/dL (Normal); Ketones,Urine Negative (Negative); Leukocyte Esterase,Urine Negative (Negative); Nitrite,Urine Negative (Negative); PH,Urine 5.5 pH Units (5.0-8.0); Protein,Urine Negative (Neg-Trace); Specific Gravity,Urine 1.015 (1.010-1.025); Urobilinogen,Urine Normal (Normal)
--- NOTE | 2018-01-02 17:24 | Cardiothoracic Consult Note ---
Date of Encounter: 01/02/18 Time of Encounter: 17:21 Assessment and Plan (1) ST elevation (STEMI) myocardial infarction Current Visit: Yes Status: Acute The patient is a 67-year-old type II diabetic, hypertensive man with hypercholesterolemia. He developed postprandial nausea and vomiting approximately 9 days ago and was evaluated at [facility] after another episode of postprandial nausea and vomiting. During his evaluation the patient was found to have elevated troponin I levels an ECG changes consistent with an inferior myocardial infarction. He was taken for urgent cardiac catheterization. This revealed severe two-vessel CAD. In particular the patient has a 70% proximal LAD lesion, 50% mid LAD lesion and serial 99% lesions in the proximal RCA, mid RCA, and proximal PDA. The patient was also noted to have SANDOR probably due to dehydration. He was given Brilinta in the emergency department. He has been recommended for CABG. I concur with this recommendation. After speaking with the patient and his family, they are considering possible transferred to the [facility] at the [facility]. I will revisit the patient in the morning to see if he is decision regarding possible transfer. If he decides to stay at [facility] he will tentatively undergo CABG on Sunday, 2017. This is mostly dependent on correction of the patient's prerenal condition. The assessment and plan as outlined above was discussed with the patient and/or family members who expressed understanding and agreement. All questions were answered. Qualifiers: Involved coronary artery: other inferior wall coronary artery Qualified Code(s): I21.19 - ST elevation (STEMI) myocardial infarction involving other coronary artery of inferior wall - History of Present Illness Consult date: 01/02/18 Requesting physician: Luis A Huitron Consult reason: STEMI Chief complaint: Nausea and vomiting History of present illness: Mr. Cruz is a 67 year old type II diabetic, hypertensive man with hypercholesterolemia. The patient began experiencing postprandial nausea and vomiting 9 days ago. He states that shortly after he ate he would experience epigastric discomfort followed by nausea and vomiting of his meal. Yesterday the patient was evaluated by his primary care physician who recommended that the patient undergo an upper GI evaluation. The patient was also told that should he have further symptoms that he should be evaluated at an emergency department rather than an urgent care facility. Last evening the patient had another episode of epigastric discomfort followed by nausea and vomiting and was evaluated at [facility] emergency department. He was noted to have elevated troponin I levels an ECG changes consistent with an acute inferior myocardial infarction, as well as SANDOR (probably prerenal due to dehydration). He was taken urgently to the cardiac catheterization laboratory where he was found to have severe two-vessel CAD. In particular, the patient has a 70% proximal LAD lesion, a 50% mid LAD lesion, and serial 99% lesions in the proximal RCA, mid RCA and mid PDA. The patient has been recommended for CABG. Past Med Surg Social Fam HX - Past Medical History Medical history: coronary artery disease, diabetes, hyperlipidemia, hypertension , peripheral artery disease, renal disease (Probable SANDOR from dehydration) Psychiatric history: no psych history - Past Surgical History Surgical History: appendectomy, tonsilectomy - Social History Smoking Status: Former smoker Packs per day: 2PPD X 16 YRS (quit several years ago) Smokeless Tobacco Status: No Alcohol use: none Drug use: none Occupational status: retired Current living situation: Home - Independent Activity Level: Independent ambulation Recent Out of Country Travel Within the Last 8 Weeks: No Exposure or Possible Exposure to Illness During Travel: No Medications and Allergies Dulaglutide [Trulicity] 0.75 mg SQ TH 01/02/18 [History] Lansoprazole [Prevacid] 30 mg PO DAILY 01/02/18 [History] Metformin HCl 850 mg PO BID 01/02/18 [History] Metoprolol Succinate 50 mg PO DAILY 01/02/18 [History] Multivit-Min/FA/Lycopen/Lutein [Men 50 Plus Multivitamin Tab] 1 each PO DAILY [History] Olmesartan/Hydrochlorothiazide [Olmesartan-Hctz 20-12.5 mg Tab] 1 tab PO DAILY 01/02/18 [History] Simvastatin [Zocor] 40 mg PO HS 01/02/18 [History] Tadalafil [Cialis] 20 mg PO Q72H PRN 01/02/18 [History] glipiZIDE [Glipizide] 10 mg PO BID 01/02/18 [History] 3 Allergy/AdvReac Type Severity Reaction Status Date / Time Penicillins AdvReac Hives Verified 01/02/18 13:59 All Systems Review: The remainder of the systems were reviewed and are negative Physical Examination Vital Signs, Last 4 Hours Pulse Resp BP Pulse Ox 01/02/18 15:00 85 20 130/84 97 01/02/18 14:00 90 20 117/76 93 General: Conversant, No Apparent Distress HEENT: Atraumatic, Normocephaly, Trachea midline Neck: No JVD, Normal carotid pulses Cardiac: Reg Rate and Rhythm, Normal S1 and S2, No Murmur Lungs: Normal Breath Sounds, No Wheeze, Rales, Rhonchi Neuro: Alert and responsive, No focal deficits noted, Motor nerves intact, Sensory nerves intact Vascular: Normal capillary refill Musculoskeletal: No Chest Wall Tenderness Extremities: No Clubbing, No Cyanosis, No Edema Results 01/02/18 03:43 01/02/18 03:43 Lab Results, Last 24 hours 01/02/18 01/02/18 03:43 03:43 WBC 14.0 H Hgb 15.6 Hct 45.2 Plt Count 342 Sodium 132 L Potassium 3.4 L Chloride 101 Carbon Dioxide 18 L BUN 66 H Creatinine 2.06 H Glucose 158 H Calcium 8.3 L - Imaging Chest Xray: image reviewed (Normal cardiac size. No active pulmonary disease.) Consult Discharge Plan - Plan Referrals: Aamir Ireland DO [Primary Care Provider] -
--- NOTE | 2018-01-02 17:34 | Electrocardiograph Report ---
[employer] Test Date: 2018-01-01 Pat Name: Federico Cruz Department: [id number] Room: 09 Gender: M Data Communications Analyst: : 1950 Requested By: Aamir Paz Order Number: [id number] Reading MD: Steven Mcleod Measurements Intervals [place] Rate: 86 P: 47 IA: 163 QRS: 7 QRSD: 99 T: 95 QT: 404 QTc: 484 Interpretive Statements Sinus rhythm Inferior infarct, acute (RCA) Minimal ST elevation, anterior leads Probable RV involvement, suggest recording right precordial leads Electronically Signed On 01-02-2018 17:33:05 EDT by Steven Mcleod
[2018-01-03] MEDS ORDERED: Clindamycin 900 MG/50 ML 900 MG/50 ML IV.SOLN IVPB ONE (07:13)
--- NOTE | 2018-01-03 07:18 | Cardiothoracic Progress Note ---
Date of Encounter: 01/03/18 Time of Encounter: 07:16 - Assessment and plan (1) ST elevation (STEMI) myocardial infarction Current Visit: Yes Status: Acute The patient is a 67-year-old type II diabetic, hypertensive man with hypercholesterolemia. He developed postprandial nausea and vomiting approximately 9 days ago and was evaluated at [facility] after another episode of postprandial nausea and vomiting. During his evaluation the patient was found to have elevated troponin I levels an ECG changes consistent with an inferior myocardial infarction. He was taken for urgent cardiac catheterization. This revealed severe two-vessel CAD. In particular the patient has a 70% proximal LAD lesion, 50% mid LAD lesion and serial 99% lesions in the proximal RCA, mid RCA, and proximal PDA. The patient was also noted to have SANDOR probably due to dehydration. He was given Brilinta in the emergency department. He has been recommended for CABG. I concur with this recommendation. After speaking with the patient and his family, they are considering possible transferred to the [facility] at the [facility]. I will revisit the patient later this morning to see if he and his family have made a final decision regarding possible transfer. If he decides to stay at [facility] he will tentatively undergo CABG on 01/04/2018. This is mostly dependent on correction of the patient's prerenal condition. The assessment and plan as outlined above was discussed with the patient and/or family members who expressed understanding and agreement. All questions were answered. Qualifiers: Involved coronary artery: other inferior wall coronary artery Qualified Code(s): I21.19 - ST elevation (STEMI) myocardial infarction involving other coronary artery of inferior wall - Subjective Interval history: The patient remained hemodynamic stable overnight. He has no complaints of substernal chest pain, shortness of breath, or nausea/vomiting. Vital Signs, Last 4 Hours Temp Pulse Resp BP Pulse Ox 01/03/18 06:00 88 17 125/74 99 01/03/18 05:15 97.6 F 01/03/18 05:00 77 16 122/76 98 01/03/18 04:00 78 19 123/79 97 Oxgyen Flow Rate Oxygen Flow Rate (LPM) 2 Clinical Data, last 8 Hours Output, Urine Amount 350 Weight 01/01/18 01/02/18 01/03/18 23:59 23:59 23:59 Weight 107.5 kg - Physical Examination General: Conversant, No Apparent Distress Neck: No JVD, Normal carotid pulses Cardiac: Reg Rate and Rhythm, Normal S1 and S2, No Murmur Lungs: Normal Breath Sounds, No Wheeze, Rales, Rhonchi Neuro: Alert and responsive, No focal deficits noted Vascular: Normal capillary refill Extremities: No Clubbing, No Cyanosis, No Edema - Labs 01/02/18 03:43 01/02/18 03:43 Consult Discharge Plan - Plan Referrals: Aamir Ireland DO [Primary Care Provider] -
[2018-01-03] MEDS: Aspirin 81 MG TAB.CHEW PO SCH (07:52)
[2018-01-03] MEDS: 0.9 % Sodium Chloride 1,000 ML IVC SCH ×2 (07:52→18:30)
[2018-01-03] MEDS: Budesonide/Formoterol 80/4.5 MDI IH SCH ×2 (08:12→20:04)
[2018-01-03] MEDS: Insulin LISPRO 300 UNITS/3 ML VIAL SQ SCH ×4 (08:13→17:12)
[2018-01-03] MEDS ORDERED: Chlorhexidine Rinse 15 ML MOUTHWASH MM SCH (09:00)
[2018-01-03 09:42] LABS: BUN/Creatinine Ratio 35 (6-26); Blood Urea Nitrogen 39 mg/dL (8-23); Calcium 8.4 mg/dL (8.6-10.3); Carbon Dioxide 22 mEq/L (23-29); Chloride 105 mEq/L (98-107); Glucose 136 mg/dL (70-105); Osmolality,Calculated 299 (280-300); Potassium 3.7 mEq/L (3.5-5.1); Sodium 139 mEq/L (136-145); eGFR For Non-African Americans > 60 (> 60)
--- NOTE | 2018-01-03 13:47 | Anesthesia Evaluation PreOp ---
Date of Encounter: 01/04/18 Time of Encounter: 07:22 - Past History Planned Operation: CABG Cardiac History: PA, HTN, Hyperlipidemia, Other (PAD) Pulmonary History: Former smoker, COPD RESEARCH RECRUITER History: Denies Any Significant HX Other Medical History: Renal (SANDOR), Diabetes Type II Anesthesia History: No Prior Anesthetic Complications, Past Anesthesia Alcohol Use: none Drug use: none Medications and Allergies Dulaglutide [Trulicity] 0.75 mg SQ TH 01/02/18 [History] Lansoprazole [Prevacid] 30 mg PO DAILY 01/02/18 [History] Metformin HCl 850 mg PO BID 01/02/18 [History] Metoprolol Succinate 50 mg PO DAILY 01/02/18 [History] Multivit-Min/FA/Lycopen/Lutein [Men 50 Plus Multivitamin Tab] 1 each PO DAILY [History] Olmesartan/Hydrochlorothiazide [Olmesartan-Hctz 20-12.5 mg Tab] 1 tab PO DAILY 01/02/18 [History] Simvastatin [Zocor] 40 mg PO HS 01/02/18 [History] Tadalafil [Cialis] 20 mg PO Q72H PRN 01/02/18 [History] glipiZIDE [Glipizide] 10 mg PO BID 01/02/18 [History] 3 Allergy/AdvReac Type Severity Reaction Status Date / Time Penicillins AdvReac Hives Verified 01/02/18 13:59 - Meds/Allergy Pre-op Review Medications Reviewed: Yes Allergies Reviewed: Yes Beta Blockers on Current Med List: Yes (metoprolol) If Beta Blockers taken, Date/Time (Last Dose taken): 2100 01/04/2018 Anesthesia Results - Labs 01/02/18 03:43 01/03/18 07:37 - Imaging EKG: report reviewed, image reviewed Additional studies: Echo Impressions: Technically sub-optimal due to poor echocardiographic windows. LVEF 60%. Normal LV chamber size and function. Mild asymmetric hypertrophy of the basal septum. No LVOT obstruction observed. Mild segmental left ventricular systolic dysfunction. Mild left ventricular diastolic dysfunction. Mildly dilated right ventricle with normal function. No evidence of pulmonary hypertension identified. No significant valvular dysfunction. Left Ventricular Wall Motion: Rest Echo Findings The basal inferior wall was hypokinetic. All other wall segments showed normal motion. Findings: Study Quality * Technically sub-optimal due to poor echocardiographic windows. ECG Findings * Normal sinus rhythm. Left Ventricle * LVEF 60%. * Normal LV chamber size and function. * Mild asymmetric hypertrophy of the basal septum. No LVOT obstruction observed. * Mild segmental left ventricular systolic dysfunction. * Mild left ventricular diastolic dysfunction. Right Ventricle * Mildly dilated right ventricle with normal function. Left Atrium * Mildly dilated left atrium. Right Atrium * Mildly dilated right atrium. Aortic Valve * Aortic valve not well visualized. The area of the noncoronary cusp appeared sclerotic. * No aortic stenosis. * No aortic regurgitation. Mitral Valve * Normal mitral valve structure and function. * No mitral regurgitation. * No mitral stenosis. Tricuspid Valve * Normal tricuspid valve structure and function. * Trace tricuspid regurgitation. * No evidence of pulmonary hypertension identified. Pulmonic Valve * Pulmonic valve not well visualized. * No pulmonic regurgitation. Aorta * Normally sized aortic root. Pericardium * The pericardium appears normal. IVC * Normal IVC dimensions and inspiratory collapse. Pulmonary Artery * Normal visualized portions of the main pulmonary artery. [facility] STEMI ACS <= 24 hrs Impressions: There is severe two vessel coronary artery disease. Patient had PTCA of the ostial prox RCA Diabetic SANDOR, likely prerenal from N/V Recommendations: Optimal medical therapy of patient's disease. Aggressive risk factor modification. Suggest patient have Elective coronary artery bypass surgery over high risk PCI RCA with rotational atherectomy History/Risk Factors: Diabetes Hypertension Coronary Dominance: right Lesion Findings/Interventions * Left Main Coronary Artery The LMCA is angiographically free of disease. * Left Anterior Descending There is a 70% stenosis in the Proximal LAD and mid 50% stenosis * Circumflex The Circumflex proximal 50% stenosis The 1st Marginal is angiographically free of disease. * Ramus The Ramus is angiographically free of disease. * Right Coronary Artery- severely calcified throughout. There is a 15 mm long, 99% stenosis in the Proximal RCA. The lesion has a ANGELLA flow of 1 and has no thrombus present. An intervention was performed on the Proximal RCA with a final stenosis of 95%. There were no lesion complications. The final ANGELLA flow was 1. There is a 99% stenosis in the Mid RCA. The lesion has a ANGELLA flow of 1. Unable to cross d/t calcification. There is a 99% stenosis in the Right PDA. The lesion has a ANGELLA flow of 1. Anesthesia Exam Vital Signs/O2 Sat/Glucose, Most Recent Temp Pulse Resp BP Pulse Ox 98.0 F 80 18 151/94 94 01/04/18 04:43 01/04/18 06:00 01/04/18 06:00 01/04/18 06:00 01/04/18 06:00 Blood Glucose* 164 Height: 1.73 Weight: 110 kg NPO (# of Hours): > 8 hr - HEENT Pupil (Motor): Pupils equal Mallampati: II Teeth: Missing, Poor dentition Oral Opening: Greater than 3 - RESEARCH RECRUITER LOC: Oriented RESEARCH RECRUITER Motor: Normal RUE, Normal LUE, Normal RLE, Normal LLE, Normal Face RESEARCH RECRUITER Sensory: Normal: RUE, LUE, RLE, LLE, Face - Cardiac Rhythm: Regular Murmur: None - Pulmonary Breath Sounds: bilateral Clear Respiratory Effort: Symmetrical Anesthesia Assess/Plan ASA Score: 4 Modified Alejandra Scale for Level of Consciousness: Cooperative, oriented, and tranquil Anesthetic Plan: General Monitoring Plan: Standard Monitors, A-Line, PAC, ABDI Recovery Plan: ICU
--- NOTE | 2018-01-03 14:06 | Cardiology Progress Note ---
Date of Encounter: 01/03/18 Time of Encounter: 13:50 Assessment and Plan (1) ST elevation (STEMI) myocardial infarction Current Visit: Yes Status: Acute S/P emergent C last night--ostial proximal LAD 70%. RCA culprit - proximal 99% , mid 99% heavily calcified, PDA 95%. PTCA of pRCA with lisa wire. RCA unamenable to intervention. CABG recommended. If declined for CABG, consider high risk PCI w rotablator of RCA with possible Impella support with continued improvement in renal function. TTE 01/02/18: LVEF 60%, mild asymmetric hypertrophy of the basal septum without LVOT. Pt currently denies chest pain or dyspnea. No N/V. Discussed with patient, he has elected to remain at [place] for CABG, plan for Sunday with Dr. Scott. Continue heparin gtt, ASA, Statin, and BB. Right radial access site healing well. No bleeding, hematoma or ecchymosis noted. Qualifiers: Involved coronary artery: other inferior wall coronary artery Qualified Code(s): I21.19 - ST elevation (STEMI) myocardial infarction involving other coronary artery of inferior wall (2) Acute kidney injury Current Visit: Yes Status: Acute Appears to be SANDOR with prolonged N/V. IVF with NS. Judicious use of contrast. SANDOR has appeared to resolve today, will continue IVF. Discussed with Dr. Huitron. Nephrology consult not warranted at this time given improving renal function. (3) Diabetes mellitus Current Visit: Yes Status: Chronic Sliding scale while inpt. 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 All questions were answered. Thank you for involving us in the care of your patient. Please call with any questions. Subjective Principal diagnosis: STEMI Interval history: Seen and examined. Family at bedside. Plan for CABG at [facility] per patient, family requesting to speak with Dr. Scott--notified primary RN to page. No chest pain/discomfort or n/v. Results of TTE discussed. No issues with cath site. Objective Vital Signs, Last 4 Hours Pulse Resp BP Pulse Ox 01/03/18 13:00 87 16 131/73 95 01/03/18 12:00 72 14 126/81 95 01/03/18 11:00 64 15 115/69 98 General: Conversant, No Apparent Distress HEENT: Atraumatic, Normocephaly, Mucus Membranes Moist Cardiac: Reg Rate and Rhythm, Normal S1 and S2 Lungs: Normal Breath Sounds Neuro: Alert and responsive Abdomen: Soft Skin: No rashes noted on visualized skin Musculoskeletal: No Chest Wall Tenderness Extremities: No Edema, Normal Pulses Results 01/02/18 03:43 01/03/18 07:37 Lab Results 01/03/18 07:37 Sodium 139 Potassium 3.7 Chloride 105 Carbon Dioxide 22 L BUN 39 H Creatinine 1.12 Glucose 136 H Calcium 8.4 L Active Medications Acetaminophen (Tylenol) 500 mg PO Q6H PRN PRN Reason: Mild Pain Stop: 07/03/18 23:16 Aspirin (Aspirin) 81 mg PO DAILY [facility] Stop: 07/04/18 09:01 Last Admin: 01/03/18 07:52 Dose: 81 mg Budesonide/Formoterol Fumarate (Symbicort) 2 puff IH BIDR ELIZABETH PRN Reason: Protocol Stop: 07/04/18 10:01 Last Admin: 01/03/18 08:12 Dose: 2 puff Chlorhexidine Gluconate (Chlorhexidine Rinse) 15 ml MM BID [facility] Stop: 01/04/18 09:01 Dextrose/Water (Dextrose 50% (Syg)) 25 ml IVP AD PRN PRN Reason: Hypoglycemia Stop: 07/03/18 23:20 Diphenhydramine HCl (Benadryl) 25 mg PO HS PRN PRN Reason: Insomnia Stop: 07/04/18 00:23 Glucagon (Glucagen) 1 mg IM ONCE PRN PRN Reason: Hypoglycemia Stop: 07/03/18 23:20 Glucose (Gluctose) 15 gm PO ONCE PRN PRN Reason: Hypoglycemia Stop: 07/03/18 23:20 Glucose (Gluctose) 30 gm PO ONCE PRN PRN Reason: Hypoglycemia Stop: 07/03/18 23:20 Heparin Sodium (Porcine) (Heparin) 4,000 unit IVP Q6HR PRN PRN Reason: SEE COMMENTS Stop: 04/03/19 22:29 Heparin Sodium (Porcine) (Heparin) 2,000 unit IVP Q6H PRN PRN Reason: SEE COMMENTS Stop: 07/03/18 22:29 Heparin Sodium/Dextrose (Heparin 25,000 Unit/500 Ml D5w) 25,000 unit in 500 mls @ 19.958 mls/hr IVC .Q24H ELIZABETH; 10 UNIT/KG/HR PRN Reason: Protocol Stop: 07/03/18 22:31 Last Titration: 01/02/18 23:01 Dose: 11.97 unit/kg/hr, 23.9 mls/hr Dextrose (Dextrose 5%) 1,000 mls @ 100 mls/hr IVC .Q10H PRN PRN Reason: HYPOGLYCEMIA Stop: 07/03/18 23:20 Sodium Chloride (0.9 % Sodium Chloride) 1,000 mls @ 100 mls/hr IVC .Q10H ELIZABETH Stop: 07/03/18 23:31 Last Admin: 01/03/18 07:52 Dose: 100 mls/hr Clindamycin Phosphate/Dextrose (Cleocin Premix 900 Mg/50 Ml) 900 mg in 50 mls @ 100 mls/hr IVPB PREOP ONE Stop: 01/04/18 07:29 Insulin Human Lispro (Humalog) 0 units SQ TIDAC ELIZABETH PRN Reason: Protocol Stop: 07/04/18 07:31 Last Admin: 01/03/18 11:56 Dose: 6 units Metoprolol Tartrate (Lopressor) 25 mg PO BID ELIZABETH Stop: 07/04/18 13:01 Last Admin: 01/03/18 07:52 Dose: 25 mg Morphine Sulfate (Morphine Sulfate) 4 mg IVP Q3H PRN PRN Reason: Severe Pain (7-10) Stop: 07/03/18 23:16 Ondansetron HCl (Zofran) 8 mg IVP Q8HR PRN PRN Reason: Nausea And Vomiting Stop: 07/03/18 23:16 Last Admin: 01/02/18 08:21 Dose: 8 mg Oxycodone/Acetaminophen (Percocet 10/325) 1 each PO Q4HR PRN PRN Reason: Pain Stop: 07/04/18 00:22 Last Admin: 01/02/18 06:02 Dose: 1 each Promethazine HCl (Phenergan) 25 mg IVP Q8HR PRN PRN Reason: Nausea And Vomiting Stop: 07/04/18 00:13 Rosuvastatin Calcium (Crestor) 40 mg PO HS ELIZABETH Stop: 07/04/18 21:01 Last Admin: 01/02/18 20:15 Dose: 40 mg - Imaging and Cardiology Echo: report reviewed Cardiac cath: report reviewed Other Results: 12 hour tele: avg HR=76 SR. - EKG Interpretation EKG results cardiology: personally reviewed Consult Discharge Plan - Plan Referrals: Aamir Ireland DO [Primary Care Provider] -
--- NOTE | 2018-01-03 15:00 | Electrocardiograph Report ---
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
[2018-01-03] MEDS: Heparin 25,000 UNIT/500 ML D5W 25,000 UNIT/500 ML BAG IVC SCH (18:30)
[2018-01-03] MEDS: Chlorhexidine Rinse 15 ML MOUTHWASH MM SCH (21:18)
[2018-01-04] MEDS: 0.9 % Sodium Chloride 1,000 ML IVC SCH (04:34)
[2018-01-04] MEDS ORDERED: Clindamycin 900 MG/50 ML 900 MG/50 ML IV.SOLN IVPB ONE (06:00)
[2018-01-04] MEDS: Chlorhexidine Rinse 15 ML MOUTHWASH MM SCH ×2 (06:13→19:22)
[2018-01-04] MEDS ORDERED: *HR* FentaNYL (PF) 1,000 MCG/20 ML VIAL ONE (06:58)
[2018-01-04] MEDS ORDERED: *HR* Midazolam HCl 5 MG/5 ML VIAL IVP ONE (06:58)
[2018-01-04] MEDS ORDERED: *HR* Propofol 200 MG/20 ML VIAL IVP ONE (06:58)
[2018-01-04] MEDS ORDERED: Dexamethasone 4 MG/ML VIAL ONE (07:01)
[2018-01-04] MEDS ORDERED: *HR* Rocuronium Bromide 50 MG/5 ML VIAL ONE ×2 (07:01→08:49)
[2018-01-04] MEDS ORDERED: Famotidine 20 MG/2 ML VIAL ONE (07:01)
[2018-01-04] MEDS ORDERED: *HR* Magnesium Sulfate 1 GM/2 ML VIAL ONE (07:02)
[2018-01-04] MEDS ORDERED: Nitroglycerin 25 MG/250 ML INFUS..BTL IVC ONE (07:06)
[2018-01-04] MEDS ORDERED: Lidocaine 2% Syringe 100 MG/5 ML ONE (07:13)
[2018-01-04] MEDS ORDERED: Tranexamic Acid 1,000 MG/10 ML VIAL ONE (07:17)
[2018-01-04] MEDS: Budesonide/Formoterol 80/4.5 MDI IH SCH ×2 (07:52→19:58)
[2018-01-04] MEDS ORDERED: Heparin 15,000 UNIT in 0.9 % Sodium Chloride 500 ML IV ONE (08:15)
[2018-01-04] MEDS ORDERED: Dextrose 50 % in Water (Vial) 30 ML, Sodium Bicarbonate 20 MEQ, Potassium Chloride 15 M... TH ONE (08:15)
[2018-01-04] MEDS ORDERED: Insulin Human Regular 100 UNIT in 0.9 % Sodium Chloride 100 ML IV PRN (08:15)
[2018-01-04] MEDS ORDERED: Norepinephrine 4 MG in D5% in Water 250 ML IVC PRN (08:15)
[2018-01-04] MEDS ORDERED: Dextrose 50 % in Water (Vial) 30 ML, Sodium Bicarbonate 20 MEQ, Lidocaine 1% 5 ML, Insu... TH ONE ×3 (08:15)
[2018-01-04] MEDS ORDERED: Albumin Human 25% 25 GM/100 ML IV.SOLN IV ONE (08:21)
[2018-01-04] MEDS ORDERED: Lidocaine 2% Syringe 100 MG/5 ML IV ONE (08:21)
[2018-01-04] MEDS ORDERED: *HR* Magnesium Sulfate 2 GM/50 ML PIGGYBACK IVPB ONE (08:21)
[2018-01-04] MEDS ORDERED: Mannitol 25% vial 12.5 GM/50 ML VIAL IVP ONE (08:21)
[2018-01-04] MEDS ORDERED: Tranexamic Acid 1,000 MG/10 ML VIAL IVPB ONE (08:21)
[2018-01-04] MEDS ORDERED: *HR* Heparin 10,000 UNIT/10 ML VIAL IV ONE (08:21)
[2018-01-04] MEDS ORDERED: *HR* Phenylephrine 10 MG/ML VIAL IVC ONE (08:21)
[2018-01-04 08:26] LABS: ABG Base Excess 1 mEq/L (-2 to 3); ABG Chloride 103 mEq/L (98-107); ABG Glucose 155 mg/dL (60-95); ABG HCO3 28 mEq/L (21-27); ABG Ionized Calcium 1.15 mmol/L (1.15-1.35); ABG Oxygen Saturation 100 % (95-98); ABG PCO2 53 mmHg (35-45); ABG PH 7.32 pH Units (7.32-7.45); ABG PO2 270 mmHg (85-104); ABG TCO2 29 mEq/L (20-26)
[2018-01-04 09:37] LABS: ABG Base Excess 0 mEq/L (-2 to 3); ABG Chloride 104 mEq/L (98-107); ABG Glucose 149 mg/dL (60-95); ABG HCO3 26 mEq/L (21-27); ABG Ionized Calcium 1.06 mmol/L (1.15-1.35); ABG Oxygen Saturation 100 % (95-98); ABG PCO2 44 mmHg (35-45); ABG PH 7.37 pH Units (7.32-7.45); ABG PO2 227 mmHg (85-104); ABG TCO2 27 mEq/L (20-26)
[2018-01-04] MEDS ORDERED: Protamine Sulfate 250 MG/25 ML VIAL IVP ONE (09:51)
[2018-01-04 10:09] LABS: ABG Base Excess 2 mEq/L (-2 to 3); ABG Chloride 99 mEq/L (98-107); ABG Glucose 204 mg/dL (60-95); ABG HCO3 27 mEq/L (21-27); ABG Ionized Calcium 0.96 mmol/L (1.15-1.35); ABG Oxygen Saturation 100 % (95-98); ABG PCO2 41 mmHg (35-45); ABG PH 7.42 pH Units (7.32-7.45); ABG PO2 625 mmHg (85-104); ABG TCO2 28 mEq/L (20-26)
[2018-01-04 10:24] LABS: ABG Base Excess 3 mEq/L (-2 to 3); ABG Chloride 99 mEq/L (98-107); ABG Glucose 192 mg/dL (60-95); ABG HCO3 27 mEq/L (21-27); ABG Ionized Calcium 0.99 mmol/L (1.15-1.35); ABG Oxygen Saturation 100 % (95-98); ABG PCO2 39 mmHg (35-45); ABG PH 7.44 pH Units (7.32-7.45); ABG PO2 537 mmHg (85-104); ABG TCO2 28 mEq/L (20-26)
[2018-01-04] MEDS ORDERED: *HR* FentaNYL (PF) 250 MCG/5 ML VIAL ONE (10:24)
[2018-01-04 10:48] LABS: ABG Base Excess 1 mEq/L (-2 to 3); ABG Chloride 102 mEq/L (98-107); ABG Glucose 162 mg/dL (60-95); ABG HCO3 26 mEq/L (21-27); ABG Ionized Calcium 0.95 mmol/L (1.15-1.35); ABG Oxygen Saturation 100 % (95-98); ABG PCO2 45 mmHg (35-45); ABG PH 7.37 pH Units (7.32-7.45); ABG PO2 189 mmHg (85-104); ABG TCO2 27 mEq/L (20-26)
[2018-01-04] MEDS: Insulin LISPRO 300 UNITS/3 ML VIAL SQ SCH ×3 (11:03→17:07)
[2018-01-04] MEDS: Aspirin 81 MG TAB.CHEW PO SCH (11:04)
[2018-01-04] MEDS ORDERED: Naloxone 0.4 MG/ML INJ IVP PRN (11:07)
[2018-01-04] MEDS ORDERED: Acetaminophen 325 MG TABLET PO PRN (11:07)
[2018-01-04] MEDS ORDERED: Calcium Chloride 1,000 MG in 0.9 % Sodium Chloride 100 ML IVPB PRN (11:07)
[2018-01-04] MEDS ORDERED: Insulin Regular, Human 100 UNIT/ML IV PRN (11:07)
[2018-01-04] MEDS ORDERED: *HR* Dextrose 50 % in Water (Syg) 50 ML SYRINGE IVP PRN (11:07)
[2018-01-04] MEDS ORDERED: Acetaminophen 650 MG RECTAL SUPP RC PRN (11:07)
--- NOTE | 2018-01-04 11:07 | Operative Note ---
Date of procedure: 01/04/18 Pre-op diagnosis: STEMI Post-op diagnosis: same Procedure: 1. CABG 2 (BANUELOS to LAD, SVG to PDA). 2. Endoscopic vein harvesting, greater saphenous vein from right lower extremity. Implants: None. Complications: None. Anesthesia: GETA Surgeon: Meme Scott Was there an case assistant present: Yes Automation Sales Manager: Chas Rojas Estimated blood loss (cc): 500 Specimen: None. Condition: stable Disposition: ICU Procedure in Detail: INDICATIONS FOR OPERATION: The patient is a 67 year old type II diabetic, hypertensive man with hypercholesterolemia. The patient began experiencing postprandial nausea and vomiting 9 days ago. He states that shortly after he ate he would experience epigastric discomfort followed by nausea and vomiting of his meal. Yesterday the patient was evaluated by his primary care physician who recommended that the patient undergo an upper GI evaluation. The patient was also told that should he have further symptoms that he should be evaluated at an emergency department rather than an urgent care facility. Last evening the patient had another episode of epigastric discomfort followed by nausea and vomiting and was evaluated at [facility] emergency department. He was noted to have elevated troponin I levels an ECG changes consistent with an acute inferior myocardial infarction, as well as SANDOR (probably prerenal due to dehydration). He was taken urgently to the cardiac catheterization laboratory where he was found to have severe two-vessel CAD. In particular, the patient has a 70% proximal LAD lesion, a 50% mid LAD lesion, and serial 99% lesions in the proximal RCA, mid RCA and mid PDA. The patient has been recommended for CABG. despite the fact that the patient had received Brilinta and had not been off this medication for 5 days he was taken for CABG on 01/04/2018 given the severity of his serial 99% RCA lesions. FINDINGS AT OPERATION: The aorta was of normal caliber without calcification. The coronary arteries measure approximately 2-3 mm in diameter and had mild distal disease. The greater saphenous vein was harvested endoscopically from the right lower extremity from the mid calf to the groin of good quality. Total bypass time was 41 minutes, cross-clamp time 24 minutes, intentional hypothermia of 36.3 degrees centigrade. DESCRIPTION OF OPERATION: After obtaining informed operative consent from the patient, he was taken to the operating room where a satisfactory general endotracheal anesthetic was induced. Appropriate monitoring lines were placed, and the patient's chest, abdomen, and lower extremities were prepped and draped in a sterile fashion. The greater saphenous vein was harvested endoscopically from the right lower extremity from the mid calf to the groin. The vein was removed, distended, and found to be of good quality. The simultaneous tissue and skin edges were reapproximated running Vicryl sutures. Simultaneously, a standard median sternotomy incision was made and the sternum divided. The BANUELOS was taken down from its bed and side branches divided between hemoclips. The sternum was the pericardium opened and reflected laterally. The patient was prepared for cannulation by placing pursestring sutures the distal ascending aorta, mid-ascending aorta, and right atrial appendage. The patient was heparinized and when used he was greater than 200 seconds, the distal ascending aorta was cannulated followed by placement of a dual stage venous cannula through the right atrial appendage and into the inferior vena cava. A stab-and antegrade metabolic and is placed in mid-ascending aorta. The patient was placed on bypass and the temperature allowed to drift to 36.3 degrees centigrade. The distal targets were identified. The aorta was crossclamped and the patient received 1000 mL of cold antegrade crystalloid cardioplegia through the aortic root. The patient's heart obtained rapid diastolic arrest. The PDA was opened the [place] blade and the vein was anastomosed in an end-to- side fashion using running 7-0 Prolene suture. The anastomosis found to be hemostatic. The LAD was deep within fat and exposed. The LAD was opened be blade and the BANUELOS was anastomosed in an end-to-side fashion to the LAD using running 7-0 Prolene suture. The anastomosis found to be hemostatic and the pedicle was tacked to the epicardium using interrupted 5-0 silk suture. Rewarming was begun during this anastomosis. Aortic cross-clamp was released and the heart distended. The vein was measured and cut appropriate length. A partial occluding clamps placed across the mid ascending aorta and the antegrade cardioplegia cannula was removed. The aortotomy site was enlarged with a 4 mm punch. The vein was anastomosed in an end-to-side fashion to the aorta using a running 5-0 Prolene suture. The vein graft was occluded with bulldog clamps and de-aired the 25-gauge needle prior to removing the partial occluding clamp. The proximal distal anastomoses were found to be hemostatic and the proximal anastomosis was marked with radiopaque loop.Two right ventricular temporary Picardi patient was placed, and 2 chest suture placed, one in the anterior mediastinum and one along the diaphragm. During rewarming the patient's heart rhythm degenerated to ventricular fibrillation and required a single 10 J direct current shock in order to regained normal sinus rhythm. When the patient 's systemic temperature reached 36 degrees centigrade he was ventilated and received volume. He was weaned from bypass required no inotropic support. Protamine was administered and the aortic and venous cannulae were removed. The pursestring sutures were secured. The pericardium was loosely approximated in the midline using interrupted 0 silk suture. The sternum was reapproximated sternal wires the pectoralis major fascia, rectus abdominis fascia, simultaneous tissue, and skin edges were reapproximated running Vicryl sutures. Sterile dressings were applied. The patient was transferred to the ICU in satisfactory postoperative condition. There were no intraoperative complications, and the instrument, needle, and sponge count were corrected at and of operation. - Open Heart Detail ANGIE (Internal Mammary Artery) Usage: Yes Cardiopulmonary Bypass Time (mins): 41 Aortic Cross Clamp Time (mins): 24 Intentional Hypothermia Temperature (C.): 36.3
[2018-01-04] MEDS: Nitroglycerin 25 MG/250 ML INFUS..BTL IVC SCH ×2 (11:40→18:47)
[2018-01-04 11:41] LABS: ABG Base Excess 1 mEq/L (-2 to 3); ABG HCO3 28 mEq/L (21-27); ABG Oxygen Saturation 98 % (95-98); ABG PCO2 63 mmHg (35-45); ABG PH 7.27 pH Units (7.32-7.45); ABG PO2 115 mmHg (85-104); ABG TCO2 30 mEq/L (20-26); Blood Gas Modality ASSIST CONTROL; Blood Gas PEEP 5 cm H2O; Blood Gas Respiration Rate 10; Blood Gas VT 550 cc
[2018-01-04 11:48] LABS: Basophils # 0.1 K/mcL (0.0-0.2); Basophils % 0.2 %; Eosinophils # 0.1 K/mcL (0.0-0.6); Eosinophils % 0.4 %; Hematocrit 32.4 % (37.5-50.1); Hemoglobin 10.8 g/dL (12.9-16.9); Immature Granulocytes % 1.3 % (0-4); Lymphocytes # 2.5 K/mcL (0.6-4.6); Lymphocytes % 10.9 %; Mean Corpuscular HGB Conc 33.3 g/dL (31.6-35.5); Mean Corpuscular Hemoglobin 28.7 pg (28.0-33.3); Mean Corpuscular Volume 86.2 fL (83.0-100.0); Mean Platelet Volume 9.9 fL (9.4-12.4); Monocytes # 1.5 K/mcL (0.0-1.3); Monocytes % 6.7 %; Neutrophils # 18.4 K/mcL (1.6-8.9); Platelet Count 209 K/mcL (140-400); Red Blood Count 3.76 M/mcL (4.19-5.50); Red Cell Distribution Width 12.9 % (11.5-14.5); Segmented Neutrophils % 80.5 %
[2018-01-04] MEDS: niCARdipine 40 MG/200 ML MLS IVC SCH ×2 (11:50→19:15)
[2018-01-04 11:58] LABS: INR 1.4; Prothrombin Time 15.3 Seconds (9.4-12.1)
[2018-01-04 12:01] LABS: Activated Partial Thrombo Time 28.5 Seconds (26.0-36.0); BUN/Creatinine Ratio 24 (6-26); Blood Urea Nitrogen 21 mg/dL (8-23); Calcium 7.9 mg/dL (8.6-10.3); Carbon Dioxide 29 mEq/L (23-29); Chloride 107 mEq/L (98-107); Glucose 185 mg/dL (70-105); Magnesium 2.1 mg/dL (1.6-2.6); Osmolality,Calculated 296 (280-300); Potassium 4.3 mEq/L (3.5-5.1); Sodium 139 mEq/L (136-145); eGFR For Non-African Americans > 60 (> 60)
[2018-01-04] MEDS: *HR* Morphine 2 MG/ML SYRINGE IVP PRN (12:02)
[2018-01-04] MEDS: Metoclopramide 10 MG/2 ML VIAL IVP SCH ×3 (12:12→23:43)
[2018-01-04] MEDS: 0.9 % Sodium Chloride w KCl 20 MEQ/1,000 ML MLS IVC SCH (12:13)
[2018-01-04] MEDS: Insulin Human Regular 100 UNIT in 0.9 % Sodium Chloride 100 ML IVC SCH (13:20)
[2018-01-04] MEDS: Norepinephrine 4 MG in D5% in Water 250 ML IVC SCH (13:26)
--- NOTE | 2018-01-04 13:31 | Anesthesia Procedures ---
Date of Encounter: 01/04/18 Time of Encounter: 08:15 Procedures: Anesthesia - Arterial Line Consent obtained: written consent Time out performed: Yes Local Anesthetic: Lidocaine 1% Amount of Anesthetic used (mls): 0.2 Size (Gauge): 20 Length (inches): 1 3/4 Technique Used: sterile prep, direct puncture technique Post-Procedure: line taped into place, dry sterile dressing placed Patient tolerated procedure: well, no complications Complications: none Site: Radial L Vitals: see anesthesia sheet - Central Line Placement Right IJ Consent obtained: written consent Time out performed: Yes Patient placed on monitor/pulse ox: Yes Supplemental Oxygen via Nasal Cannula (L/min): 2 (general anesthesia) prep: mask, gown, gloves Central line prep: Chlorhexidine scrub Ultrasound used for placement: Yes Technique: Seldinger Lumen Inserted: single Size / Length: 9 Fr / 10 cm Post procedure: sutured in place, good blood return, all ports aspirated, flushed, capped, sterile dressing applied Patient tolerated procedure: well, no complications Complications: none Vitals: see anesthesia sheet Comments: PAC inserted with pressure waveform analysis and secured at 50 cm
[2018-01-04] MEDS: Pantoprazole 40 MG VIAL IVP SCH (13:40)
[2018-01-04] MEDS: *HR* FentaNYL (PF) 100 MCG/2 ML VIAL IVP PRN ×4 (13:57→22:20)
[2018-01-04] MEDS: Ondansetron 4 MG/2 ML VIAL IVP PRN (13:57)
[2018-01-04] MEDS: *HR* OxyCODONE/APAP 5/325 TABLET PO PRN ×2 (14:51→16:33)
[2018-01-04] MEDS: Clindamycin 900 MG/50 ML 900 MG/50 ML IV.SOLN IVPB SCH ×2 (15:17→23:43)
[2018-01-04 15:31] LABS: ABG Base Excess -1 mEq/L (-2 to 3); ABG HCO3 25 mEq/L (21-27); ABG Oxygen Saturation 100 % (95-98); ABG PCO2 48 mmHg (35-45); ABG PH 7.33 pH Units (7.32-7.45); ABG PO2 179 mmHg (85-104); ABG TCO2 27 mEq/L (20-26); Blood Gas Modality CPAP/PS
--- NOTE | 2018-01-04 15:33 | Anesthesia Evaluation Post Op ---
Date of Encounter: 01/04/18 Time of Encounter: 15:32 - Vital Signs Vital Signs: Vital Signs/O2 Sat/Glucose, Most Recent Temp Pulse Resp BP Pulse Ox 98.1 F 80 16 133/61 100 01/04/18 07:26 01/04/18 06:00 01/04/18 13:52 01/04/18 13:52 01/04/18 13:52 Blood Glucose* 174 - Lungs Lungs: Clear Ascult./Percussion - Airway Airway: Intubated - Cardiovascular Regular Rate - Mental Status Mental Status: Alert & Oriented, Answers Appropriately - Pain Pain Scale used: CantrellSaul (Faces) - Nausea Vomiting Nausea Vomiting: Not Present - Hydration Hydration: NPO Notes: 01/04/18 15:32 Patient currently on CPAP trial on ventilator. Remains in ICU in stable condition
[2018-01-04 17:07] LABS: ABG Base Excess -2 mEq/L (-2 to 3); ABG HCO3 24 mEq/L (21-27); ABG Oxygen Saturation 96 % (95-98); ABG PCO2 48 mmHg (35-45); ABG PH 7.32 pH Units (7.32-7.45); ABG PO2 89 mmHg (85-104); ABG TCO2 26 mEq/L (20-26)
[2018-01-04 17:30] LABS: Hematocrit 35.7 % (37.5-50.1)
[2018-01-04] MEDS: *HR* OxyCODONE/APAP 10/325 TABLET PO PRN (20:14)
[2018-01-05] MEDS: Insulin Human Regular 100 UNIT in 0.9 % Sodium Chloride 100 ML IVC SCH (00:25)
[2018-01-05] MEDS: Nitroglycerin 25 MG/250 ML INFUS..BTL IVC SCH ×4 (00:58→22:42)
[2018-01-05] MEDS: *HR* Morphine 2 MG/ML SYRINGE IVP PRN (01:52)
[2018-01-05] MEDS: niCARdipine 40 MG/200 ML MLS IVC SCH ×3 (02:10→20:11)
[2018-01-05] MEDS: *HR* OxyCODONE/APAP 10/325 TABLET PO PRN ×2 (02:18→06:57)
[2018-01-05] MEDS: *HR* FentaNYL (PF) 100 MCG/2 ML VIAL IVP PRN ×2 (03:06→05:03)
[2018-01-05 03:44] LABS: Basophils % 0.1 %; Hematocrit 27.5 % (37.5-50.1); Immature Granulocytes % 0.6 % (0-4); Lymphocytes # 1.9 K/mcL (0.6-4.6); Lymphocytes % 9.7 %; Mean Corpuscular HGB Conc 34.2 g/dL (31.6-35.5); Mean Corpuscular Hemoglobin 28.8 pg (28.0-33.3); Mean Corpuscular Volume 84.4 fL (83.0-100.0); Mean Platelet Volume 10.3 fL (9.4-12.4); Monocytes # 1.9 K/mcL (0.0-1.3); Monocytes % 9.8 %; Neutrophils # 15.4 K/mcL (1.6-8.9); Platelet Count 184 K/mcL (140-400); Red Blood Count 3.26 M/mcL (4.19-5.50); Red Cell Distribution Width 12.7 % (11.5-14.5); Segmented Neutrophils % 79.8 %
[2018-01-05 03:55] LABS: Hemoglobin 9.4 g/dL (12.9-16.9)
[2018-01-05 04:03] LABS: INR 1.4; Prothrombin Time 15.8 Seconds (9.4-12.1)
[2018-01-05 04:04] LABS: BUN/Creatinine Ratio 23 (6-26); Blood Urea Nitrogen 21 mg/dL (8-23); Calcium 8.2 mg/dL (8.6-10.3); Carbon Dioxide 26 mEq/L (23-29); Chloride 108 mEq/L (98-107); Glucose 118 mg/dL (70-105); Magnesium 1.5 mg/dL (1.6-2.6); Osmolality,Calculated 294 (280-300); Potassium 3.9 mEq/L (3.5-5.1); Sodium 140 mEq/L (136-145); eGFR For Non-African Americans > 60 (> 60)
[2018-01-05 04:05] LABS: Activated Partial Thrombo Time 26.3 Seconds (26.0-36.0)
[2018-01-05] MEDS: Metoclopramide 10 MG/2 ML VIAL IVP SCH ×4 (05:03→22:57)
[2018-01-05] MEDS: 0.9 % Sodium Chloride w KCl 20 MEQ/1,000 ML MLS IVC SCH (05:53)
[2018-01-05] MEDS: Furosemide 20 MG/2 ML VIAL IVP SCH ×2 (06:52→16:11)
[2018-01-05] MEDS: Insulin LISPRO 300 UNITS/3 ML VIAL SQ SCH ×2 (07:55→16:11)
[2018-01-05] MEDS: Budesonide/Formoterol 80/4.5 MDI IH SCH ×2 (07:55→19:39)
[2018-01-05] MEDS: Aspirin 81 MG TAB.CHEW PO SCH (07:59)
[2018-01-05] MEDS: Pantoprazole 40 MG VIAL IVP SCH (07:59)
[2018-01-05] MEDS: Chlorhexidine Rinse 15 ML MOUTHWASH MM SCH ×2 (07:59→20:08)
--- NOTE | 2018-01-05 08:20 | Cardiothoracic Progress Note ---
Date of Encounter: 01/05/18 Time of Encounter: 08:17 - Assessment and plan (1) ST elevation (STEMI) myocardial infarction Current Visit: Yes Status: Acute The patient is is recovering well from his CABG2. He is currently extubated and breathing comfortably. The patient remains hypertensive and is being treated with intravenous Cardene. His oral antihypertensives will be started this morning. The Garcia catheter and [place] catheter be removed. The arterial line will be removed later today when his blood pressure is better controlled. He will be monitored in the ICU today. The assessment and plan as outlined above was discussed with the patient and/or family members who expressed understanding and agreement. All questions were answered. Qualifiers: Involved coronary artery: other inferior wall coronary artery Qualified Code(s): I21.19 - ST elevation (STEMI) myocardial infarction involving other coronary artery of inferior wall - Subjective Procedure(s) Performed: POD#1 S/P CABG2 Interval history: The patient remained hemodynamic stable overnight. He is currently extubated and breathing comfortably. He has no complaints. Vital Signs, Last 4 Hours Temp Pulse Resp BP Pulse Ox 01/05/18 08:00 97.6 F 108 16 142/57 92 01/05/18 07:55 16 95 01/05/18 07:00 105 14 132/47 99 01/05/18 06:00 102 16 145/58 95 01/05/18 05:00 102 18 144/52 97 Oxgyen Flow Rate Oxygen Flow Rate (LPM) 8 Clinical Data, last 8 Hours Output, Chest Tube Drainage 10 Amount [mediastinal 2] Output, Chest Tube Drainage 10 Amount [mediastinal 2] Output, Chest Tube Drainage 20 Amount [mediastinal 2] Output, Chest Tube Drainage 10 Amount [mediastinal 2] Output, Chest Tube Drainage 30 Amount [mediastinal 2] Output, Chest Tube Drainage 10 Amount [mediastinal 2] Output, Chest Tube Drainage 15 Amount [mediastinal 2] Output, Chest Tube Drainage 10 Amount [mediastinal 1] Output, Chest Tube Drainage 10 Amount [mediastinal 1] Output, Chest Tube Drainage 10 Amount [mediastinal 1] Output, Chest Tube Drainage 15 Amount [mediastinal 1] Output, Chest Tube Drainage 20 Amount [mediastinal 1] Output, Chest Tube Drainage 10 Amount [mediastinal 1] Output, Chest Tube Drainage 10 Amount [mediastinal 1] Weight 01/03/18 01/04/18 01/05/18 23:59 23:59 23:59 Weight 107.5 kg 110.5 kg - Physical Examination General: Conversant, No Apparent Distress Neck: No JVD, Normal carotid pulses Cardiac: Reg Rate and Rhythm, Normal S1 and S2, No Murmur Incision: No signs of infection, Dry/intact dressing Sternum: Stable Chest tubes: Minimal drainage, Other (No air leak) Lungs: Normal Breath Sounds, No Wheeze, Rales, Rhonchi Neuro: Alert and responsive, No focal deficits noted Vascular: Normal capillary refill Extremities: No Clubbing, No Cyanosis, No Edema - Labs 01/05/18 03:26 01/05/18 03:26 Lab Results, Last 24 hours 01/04/18 01/04/18 01/04/18 11:35 11:35 11:35 WBC 22.9 H D Hgb 10.8 L D Hct 32.4 L Plt Count 209 INR 1.4 APTT 28.5 Sodium 139 Potassium 4.3 Chloride 107 Carbon Dioxide 29 BUN 21 Creatinine 0.86 Glucose 185 H Calcium 7.9 L Magnesium 2.1 01/04/18 01/04/18 01/05/18 16:25 16:25 03:26 WBC 19.3 H Hgb 12.0 L 9.4 L D Hct 35.7 L 27.5 L Plt Count 184 INR APTT Sodium Potassium 3.6 Chloride Carbon Dioxide BUN Creatinine Glucose Calcium Magnesium 01/05/18 01/05/18 03:26 03:26 WBC Hgb Hct Plt Count INR 1.4 APTT 26.3 Sodium 140 Potassium 3.9 Chloride 108 H Carbon Dioxide 26 BUN 21 Creatinine 0.92 Glucose 118 H Calcium 8.2 L Magnesium 1.5 L - Imaging Chest Xray: image reviewed (No pneumothorax. Minimal atelectasis/infiltrates.) - VTE Documentation of Mechanical Device: Graduated compression elastic hosiery Consult Discharge Plan - Plan Referrals: Aamir Ireland DO [Primary Care Provider] -
[2018-01-05] MEDS ORDERED: *HR* Dextrose 50 % in Water (Syg) 50 ML SYRINGE IVP PRN (08:23)
[2018-01-05] MEDS ORDERED: Dextrose Gel 15 GM/37.5 ML TUBE PO PRN ×2 (08:23)
[2018-01-05] MEDS ORDERED: D5% in Water 1,000 ML IVC PRN (08:23)
[2018-01-05] MEDS ORDERED: Aspirin Enteric Coated 81 MG Tablet PO SCH (09:00)
[2018-01-05] MEDS: *HR* Heparin 5,000 UNIT/ML VIAL SQ SCH ×2 (09:43→17:22)
[2018-01-05] MEDS: *HR* OxyCODONE/APAP 5/325 TABLET PO PRN (13:39)
[2018-01-05] MEDS ORDERED: Heparin 1,000 UNITS/500 mL 500 ML ONE (16:16)
[2018-01-05] MEDS ORDERED: Amiodarone Premix 150 MG/100 ML BAG IVPB ONE ×2 (17:08→17:11)
[2018-01-05] MEDS ORDERED: Amiodarone Premix 360 MG/200 ML BAG IVC ONE (17:08)
[2018-01-05] MEDS: Norepinephrine 4 MG in D5% in Water 250 ML IVC SCH (19:02)
[2018-01-05] MEDS: Ondansetron 4 MG/2 ML VIAL IVP PRN (19:17)
[2018-01-05] MEDS ORDERED: Insulin LISPRO 300 UNITS/3 ML VIAL SQ SCH (21:00)
[2018-01-05] MEDS: Amiodarone Premix 360 MG/200 ML BAG IVC SCH ×2 (21:07→22:57)
[2018-01-06] MEDS: niCARdipine 40 MG/200 ML MLS IVC SCH ×2 (03:24→11:32)
[2018-01-06] MEDS: *HR* OxyCODONE/APAP 5/325 TABLET PO PRN ×4 (03:41→20:55)
[2018-01-06] MEDS: *HR* Heparin 5,000 UNIT/ML VIAL SQ SCH ×2 (04:56→17:37)
[2018-01-06] MEDS: Metoclopramide 10 MG/2 ML VIAL IVP SCH ×4 (04:56→23:36)
[2018-01-06] MEDS: Nitroglycerin 25 MG/250 ML INFUS..BTL IVC SCH (04:57)
[2018-01-06] MEDS: Furosemide 20 MG/2 ML VIAL IVP SCH ×2 (05:36→17:31)
[2018-01-06] MEDS: Pantoprazole 40 MG VIAL IVP SCH (08:03)
[2018-01-06] MEDS: Aspirin 81 MG TAB.CHEW PO SCH (08:03)
[2018-01-06] MEDS: Chlorhexidine Rinse 15 ML MOUTHWASH MM SCH ×2 (08:04→20:52)
[2018-01-06] MEDS: Insulin LISPRO 300 UNITS/3 ML VIAL SQ SCH ×4 (08:04→20:55)
[2018-01-06] MEDS: Budesonide/Formoterol 80/4.5 MDI IH SCH ×2 (08:21→20:05)
[2018-01-06] MEDS: Amiodarone Premix 360 MG/200 ML BAG IVC SCH ×3 (08:24→21:05)
--- NOTE | 2018-01-06 10:05 | Cardiothoracic Progress Note ---
Date of Encounter: 01/06/18 Time of Encounter: 10:02 - Assessment and plan (1) ST elevation (STEMI) myocardial infarction Current Visit: Yes Status: Acute The patient is is recovering well from his CABG2. He converted to normal sinus rhythm on an amiodarone drip. The chest tubes were removed. The patient will be transferred to the stepdown unit when a bed is available. The assessment and plan as outlined above was discussed with the patient and/or family members who expressed understanding and agreement. All questions were answered. Qualifiers: Involved coronary artery: other inferior wall coronary artery Qualified Code(s): I21.19 - ST elevation (STEMI) myocardial infarction involving other coronary artery of inferior wall - Subjective Procedure(s) Performed: POD#2 S/P CABG2 Interval history: The patient remained hemodynamic stable overnight. He has converted to normal sinus rhythm on an amiodarone drip. He has no complaints. Vital Signs, Last 4 Hours Temp Pulse Resp BP Pulse Ox 01/06/18 09:00 101 18 153/69 90 01/06/18 08:21 18 153/69 94 01/06/18 08:00 98.2 F 147 18 128/62 98 01/06/18 07:45 98.2 F 01/06/18 07:00 146 18 168/73 98 Oxgyen Flow Rate Oxygen Flow Rate (LPM) 4 Clinical Data, last 8 Hours Output, Chest Tube Drainage 30 Amount [mediastinal 2] Output, Chest Tube Drainage 20 Amount [mediastinal 1] Output, Urine Amount 400 Output, Urine Amount 400 Weight 01/04/18 01/05/18 01/06/18 23:59 23:59 23:59 Weight 110.5 kg - Physical Examination General: Conversant, No Apparent Distress Neck: No JVD, Normal carotid pulses Cardiac: Reg Rate and Rhythm, Normal S1 and S2, No Murmur Incision: No signs of infection, Dry/intact dressing Sternum: Stable Chest tubes: Minimal drainage, Other (No air leak) Pacing Wires: In place Lungs: Normal Breath Sounds, No Wheeze, Rales, Rhonchi Neuro: Alert and responsive, No focal deficits noted Vascular: Normal capillary refill Extremities: No Clubbing, No Cyanosis, No Edema - Labs 01/05/18 03:26 01/05/18 03:26 - VTE Documentation of Mechanical Device: Graduated compression elastic hosiery Consult Discharge Plan - Plan Referrals: Aamir Ireland DO [Primary Care Provider] -
[2018-01-06] MEDS: Norepinephrine 4 MG in D5% in Water 250 ML IVC SCH (11:33)
[2018-01-06] MEDS ORDERED: Ondansetron 4 MG/2 ML VIAL IVP PRN (11:34)
[2018-01-06] MEDS ORDERED: Dextrose Gel 15 GM/37.5 ML TUBE PO PRN ×2 (11:34)
[2018-01-06] MEDS ORDERED: Insulin Regular, Human 100 UNIT/ML IV PRN (11:34)
[2018-01-06] MEDS ORDERED: Naloxone 0.4 MG/ML INJ IVP PRN (11:34)
[2018-01-06] MEDS ORDERED: Acetaminophen 325 MG TABLET PO PRN (11:34)
[2018-01-06] MEDS ORDERED: D5% in Water 1,000 ML IVC PRN (11:34)
[2018-01-06] MEDS ORDERED: *HR* Dextrose 50 % in Water (Syg) 50 ML SYRINGE IVP PRN ×3 (11:34)
[2018-01-06] MEDS: Losartan/HCTZ 50-12.5 TABLET PO SCH (12:24)
[2018-01-06] MEDS: *HR* Metformin 850 MG TABLET PO SCH (12:28)
[2018-01-06] MEDS: *HR* GlipiZIDE 5 MG TABLET PO SCH (17:31)
[2018-01-07] MEDS: *HR* OxyCODONE/APAP 5/325 TABLET PO PRN ×4 (03:00→21:10)
[2018-01-07] MEDS: *HR* Heparin 5,000 UNIT/ML VIAL SQ SCH ×2 (06:37→16:38)
[2018-01-07] MEDS: Metoclopramide 10 MG/2 ML VIAL IVP SCH ×2 (06:37→12:20)
[2018-01-07] MEDS: Budesonide/Formoterol 80/4.5 MDI IH SCH ×2 (07:48→20:20)
[2018-01-07] MEDS: *HR* GlipiZIDE 5 MG TABLET PO SCH ×2 (08:09→16:39)
[2018-01-07] MEDS: Losartan/HCTZ 50-12.5 TABLET PO SCH (08:09)
[2018-01-07] MEDS: *HR* Metformin 850 MG TABLET PO SCH ×2 (08:09→16:39)
[2018-01-07] MEDS: Chlorhexidine Rinse 15 ML MOUTHWASH MM SCH ×2 (08:10→21:10)
[2018-01-07] MEDS: Pantoprazole 40 MG VIAL IVP SCH (08:10)
[2018-01-07] MEDS: Insulin LISPRO 300 UNITS/3 ML VIAL SQ SCH ×4 (08:11→21:11)
[2018-01-07] MEDS: Furosemide 20 MG/2 ML VIAL IVP SCH ×2 (08:11→16:39)
[2018-01-07] MEDS: Aspirin 81 MG TAB.CHEW PO SCH (08:14)
[2018-01-07] MEDS: Amiodarone Premix 360 MG/200 ML BAG IVC SCH ×3 (08:26→20:19)
--- NOTE | 2018-01-07 08:32 | Cardiothoracic Progress Note ---
Date of Encounter: 01/07/18 Time of Encounter: 08:31 - Assessment and plan (1) ST elevation (STEMI) myocardial infarction Current Visit: Yes Status: Acute The patient is is recovering well from his CABG2. He converted to normal sinus rhythm on an amiodarone drip. The patient will continue ambulating today. He will need aggressive pulmonary toilet to clear his secretions. The assessment and plan as outlined above was discussed with the patient and/or family members who expressed understanding and agreement. All questions were answered. Qualifiers: Involved coronary artery: other inferior wall coronary artery Qualified Code(s): I21.19 - ST elevation (STEMI) myocardial infarction involving other coronary artery of inferior wall - Subjective Procedure(s) Performed: POD#3 S/P CABG2 Interval history: The patient remained hemodynamic stable overnight. He has converted to normal sinus rhythm on an amiodarone drip. He has no complaints. Vital Signs, Last 4 Hours Temp Pulse Resp BP Pulse Ox 01/07/18 07:50 18 90 01/07/18 07:45 99.0 F 71 18 131/67 91 Oxgyen Flow Rate Oxygen Flow Rate (LPM) 3.5 Clinical Data, last 8 Hours Output, Urine Amount 100 Weight 01/05/18 01/06/18 01/07/18 23:59 23:59 23:59 Weight 111.8 kg - Physical Examination General: Conversant, No Apparent Distress Neck: No JVD, Normal carotid pulses Cardiac: Reg Rate and Rhythm, Normal S1 and S2, No Murmur Incision: No signs of infection, Dry/intact dressing Sternum: Stable Pacing Wires: In place Lungs: Other (Wheezes and rhonchi bilaterally) Neuro: Alert and responsive, No focal deficits noted Vascular: Normal capillary refill Extremities: No Clubbing, No Cyanosis, No Edema - Labs 01/05/18 03:26 01/05/18 03:26 - VTE Documentation of Mechanical Device: Graduated compression elastic hosiery Consult Discharge Plan - Plan Referrals: Aamir Ireland DO [Primary Care Provider] -
--- NOTE | 2018-01-07 08:50 | Electrocardiograph Report ---
[address] [place], [place] [address] Test Date: 2018-01-04 Pat Name: Federico Cruz Department: 112 Room: 2N08 Gender: M Cloud Engagement Partner: : [id number] Requested By: Paul Scott Order Number: [id number] Reading MD: Steven Mcleod Measurements Intervals [place] Rate: 81 P: 58 MD: 160 QRS: 30 QRSD: 102 T: 80 QT: 413 QTc: 450 Interpretive Statements SINUS RHYTHM WITH OCCASIONAL SUPRAVENTRICULAR PREMATURE COMPLEXES POSSIBLE INFERIOR MYOCARDIAL INFARCTION, OF INDETERMINATE AGE WITH POSTERIOR EXTENSION Electronically Signed On 01-07-2018 8:48:58 EDT by Steven Mcleod
[2018-01-08] MEDS: Amiodarone Premix 360 MG/200 ML BAG IVC SCH (01:55)
[2018-01-08] MEDS: *HR* Heparin 5,000 UNIT/ML VIAL SQ SCH ×2 (05:33→17:11)
--- NOTE | 2018-01-08 07:08 | Cardiothoracic Progress Note ---
Date of Encounter: 01/08/18 Time of Encounter: 06:59 - Assessment and plan (1) ST elevation (STEMI) myocardial infarction Current Visit: Yes Status: Acute The patient is is recovering well from his CABG2. He converted to normal sinus rhythm on an amiodarone drip. The amiodarone drip will be discontinued and oral amiodarone will be started today. The patient will continue ambulating in the hallways today. The assessment and plan as outlined above was discussed with the patient and/or family members who expressed understanding and agreement. All questions were answered. Qualifiers: Involved coronary artery: other inferior wall coronary artery Qualified Code(s): I21.19 - ST elevation (STEMI) myocardial infarction involving other coronary artery of inferior wall - Subjective Procedure(s) Performed: POD#4 S/P CABG2 Interval history: The patient remained hemodynamic stable overnight. He has converted to normal sinus rhythm on an amiodarone drip. He is ambulating in the hallways without difficulty. He has no complaints. Vital Signs, Last 4 Hours Temp Pulse Resp BP Pulse Ox 01/08/18 04:02 16 98 01/08/18 03:53 98.9 F 78 18 152/76 96 Oxgyen Flow Rate Oxygen Flow Rate (LPM) 2 Clinical Data, last 8 Hours Output, Urine Amount 425 Weight 01/06/18 01/07/18 01/08/18 23:59 23:59 23:59 Weight 111.8 kg 111.8 kg - Physical Examination General: Conversant, No Apparent Distress Neck: No JVD, Normal carotid pulses Cardiac: Reg Rate and Rhythm, Normal S1 and S2, No Murmur Incision: No signs of infection, Dry/intact dressing Sternum: Stable Pacing Wires: In place Lungs: Normal Breath Sounds, No Wheeze, Rales, Rhonchi Neuro: Alert and responsive, No focal deficits noted Vascular: Normal capillary refill Extremities: No Clubbing, No Cyanosis, No Edema - Labs 01/05/18 03:26 01/05/18 03:26 - VTE Documentation of Mechanical Device: Graduated compression elastic hosiery Consult Discharge Plan - Plan Referrals: Meme Scott MD [Partnered Physician] - 02/14/18 1:40 pm Aamir Ireland DO [Primary Care Provider] - 01/15/18 12:00 pm
[2018-01-08] MEDS: Budesonide/Formoterol 80/4.5 MDI IH SCH ×2 (07:31→20:36)
[2018-01-08] MEDS: Pantoprazole 40 MG VIAL IVP SCH (07:55)
[2018-01-08] MEDS: *HR* GlipiZIDE 5 MG TABLET PO SCH ×2 (07:55→17:11)
[2018-01-08] MEDS: Losartan/HCTZ 50-12.5 TABLET PO SCH (07:55)
[2018-01-08] MEDS: *HR* Metformin 850 MG TABLET PO SCH ×2 (07:55→17:11)
[2018-01-08] MEDS: Chlorhexidine Rinse 15 ML MOUTHWASH MM SCH ×2 (07:55→20:00)
[2018-01-08] MEDS: Aspirin 81 MG TAB.CHEW PO SCH (07:55)
[2018-01-08] MEDS: *HR* Amiodarone 200 MG TABLET PO SCH (07:55)
[2018-01-08] MEDS: Insulin LISPRO 300 UNITS/3 ML VIAL SQ SCH ×4 (08:20→20:34)
[2018-01-09] MEDS: *HR* OxyCODONE/APAP 5/325 TABLET PO PRN ×4 (04:00→21:13)
[2018-01-09] MEDS: *HR* Heparin 5,000 UNIT/ML VIAL SQ SCH ×2 (04:57→16:50)
--- NOTE | 2018-01-09 06:42 | Cardiothoracic Progress Note ---
Date of Encounter: 01/09/18 Time of Encounter: 06:40 - Assessment and plan (1) ST elevation (STEMI) myocardial infarction Current Visit: Yes Status: Acute The patient is is recovering well from his CABG2. He converted to normal sinus rhythm on an amiodarone drip. The amiodarone drip will be discontinued and oral amiodarone will be started today. He has developed some "gout" pain in his feet. He will be started on allopurinol today. The patient will continue ambulating in the hallways today. The assessment and plan as outlined above was discussed with the patient and/or family members who expressed understanding and agreement. All questions were answered. Qualifiers: Involved coronary artery: other inferior wall coronary artery Qualified Code(s): I21.19 - ST elevation (STEMI) myocardial infarction involving other coronary artery of inferior wall - Subjective Procedure(s) Performed: POD#5 S/P CABG2 Interval history: The patient remained hemodynamic stable overnight. He has converted to normal sinus rhythm on an amiodarone drip. He is ambulating in the hallways without difficulty. He has no complaints. Vital Signs, Last 4 Hours Temp Pulse Resp BP Pulse Ox 01/09/18 04:30 18 94 01/09/18 04:00 89 01/09/18 03:28 98.0 F 89 18 144/75 90 Oxgyen Flow Rate Oxygen Flow Rate (LPM) 2 Clinical Data, last 8 Hours Output, Urine Amount 250 Weight 01/07/18 01/08/18 01/09/18 23:59 23:59 23:59 Weight 111.8 kg 111.8 kg 108.5 kg - Physical Examination General: Conversant, No Apparent Distress Neck: No JVD, Normal carotid pulses Cardiac: Reg Rate and Rhythm, Normal S1 and S2, No Murmur Incision: No signs of infection, Dry/intact dressing Sternum: Stable Pacing Wires: In place Lungs: Normal Breath Sounds, No Wheeze, Rales, Rhonchi Neuro: Alert and responsive, No focal deficits noted Vascular: Normal capillary refill Musculoskeletal: No Chest Wall Tenderness Extremities: No Clubbing, No Cyanosis, No Edema - Labs 01/05/18 03:26 01/05/18 03:26 - VTE Documentation of Mechanical Device: Graduated compression elastic hosiery Consult Discharge Plan - Plan Referrals: Meme Scott MD [Partnered Physician] - 02/14/18 1:40 pm Aamir Ireland DO [Primary Care Provider] - 01/15/18 12:00 pm
[2018-01-09] MEDS: Budesonide/Formoterol 80/4.5 MDI IH SCH ×2 (07:52→20:59)
[2018-01-09] MEDS: *HR* GlipiZIDE 5 MG TABLET PO SCH ×2 (08:43→16:50)
[2018-01-09] MEDS: Chlorhexidine Rinse 15 ML MOUTHWASH MM SCH ×2 (08:43→21:13)
[2018-01-09] MEDS: Pantoprazole 40 MG VIAL IVP SCH (08:43)
[2018-01-09] MEDS: *HR* Metformin 850 MG TABLET PO SCH ×2 (08:43→16:50)
[2018-01-09] MEDS: Aspirin 81 MG TAB.CHEW PO SCH (08:43)
[2018-01-09] MEDS: *HR* Amiodarone 200 MG TABLET PO SCH (08:43)
[2018-01-09] MEDS: Insulin LISPRO 300 UNITS/3 ML VIAL SQ SCH ×4 (08:44→21:15)
[2018-01-09] MEDS: Losartan/HCTZ 50-12.5 TABLET PO SCH (08:46)
[2018-01-10] MEDS: *HR* Heparin 5,000 UNIT/ML VIAL SQ SCH ×2 (06:48→18:07)
--- NOTE | 2018-01-10 07:28 | Cardiothoracic Progress Note ---
Date of Encounter: 01/10/18 Time of Encounter: 07:27 - Assessment and plan (1) ST elevation (STEMI) myocardial infarction Current Visit: Yes Status: Acute The assessment and plan as outlined above was discussed with the patient and/or family members who expressed understanding and agreement. All questions were answered. I will start by mouth colchicine and allopurinol for his gout. Qualifiers: Involved coronary artery: other inferior wall coronary artery Qualified Code(s): I21.19 - ST elevation (STEMI) myocardial infarction involving other coronary artery of inferior wall - Subjective Interval history: The patient complains of an acute gouty attack in both great toes. He states that when he gets this at home, that he uses crutches. Vital Signs, Last 4 Hours Temp Pulse Resp BP Pulse Ox 01/10/18 05:01 98.9 F 81 18 150/79 97 01/10/18 04:35 16 90 Oxgyen Flow Rate Oxygen Flow Rate (LPM) 4 Clinical Data, last 8 Hours Output, Urine Amount 620 Output, Urine Amount 280 Weight 01/08/18 01/09/18 01/10/18 23:59 23:59 23:59 Weight 111.8 kg 108.5 kg 109.4 kg Lungs are clear to percussion and auscultation. Heart is in a normal sinus rhythm. All incisions are healing well without signs of infection and the sternum is stable. - Labs 01/05/18 03:26 01/05/18 03:26 - VTE Documentation of Mechanical Device: Graduated compression elastic hosiery Consult Discharge Plan - Plan Referrals: Meme Scott MD [Partnered Physician] - 02/14/18 1:40 pm Aamir Ireland DO [Primary Care Provider] - 01/15/18 12:00 pm
[2018-01-10] MEDS: *HR* Amiodarone 200 MG TABLET PO SCH (07:37)
[2018-01-10] MEDS: Insulin LISPRO 300 UNITS/3 ML VIAL SQ SCH ×3 (07:37→18:07)
[2018-01-10] MEDS: Aspirin 81 MG TAB.CHEW PO SCH (07:39)
[2018-01-10] MEDS: *HR* GlipiZIDE 5 MG TABLET PO SCH ×2 (07:39→18:05)
[2018-01-10] MEDS: *HR* Metformin 850 MG TABLET PO SCH ×2 (07:39→18:05)
[2018-01-10] MEDS: Losartan/HCTZ 50-12.5 TABLET PO SCH (07:39)
[2018-01-10] MEDS: Pantoprazole 40 MG VIAL IVP SCH (07:41)
[2018-01-10] MEDS: Chlorhexidine Rinse 15 ML MOUTHWASH MM SCH (07:41)
[2018-01-10] MEDS: Budesonide/Formoterol 80/4.5 MDI IH SCH ×2 (07:59→21:07)
[2018-01-10] MEDS ORDERED: (Dulaglutide [Trulicity] 0.75 MG) SQ SCH (10:07)
[2018-01-10] MEDS: Colchicine 0.6 MG TABLET PO SCH (11:40)
[2018-01-10] MEDS: *HR* OxyCODONE/APAP 5/325 TABLET PO PRN (18:06)
[2018-01-11] MEDS: *HR* OxyCODONE/APAP 5/325 TABLET PO PRN ×4 (04:12→18:05)
[2018-01-11] MEDS: *HR* Heparin 5,000 UNIT/ML VIAL SQ SCH ×2 (04:12→18:02)
[2018-01-11 06:25] LABS: Basophils % 0.2 %; Eosinophils # 0.2 K/mcL (0.0-0.6); Eosinophils % 1.3 %; Hemoglobin 8.3 g/dL (12.9-16.9); Immature Granulocytes % 0.8 % (0-4); Lymphocytes # 1.8 K/mcL (0.6-4.6); Mean Corpuscular HGB Conc 33.2 g/dL (31.6-35.5); Mean Corpuscular Hemoglobin 28.7 pg (28.0-33.3); Mean Corpuscular Volume 86.5 fL (83.0-100.0); Mean Platelet Volume 9.2 fL (9.4-12.4); Monocytes # 1.1 K/mcL (0.0-1.3); Monocytes % 8.9 %; Neutrophils # 8.8 K/mcL (1.6-8.9); Platelet Count 292 K/mcL (140-400); Red Blood Count 2.89 M/mcL (4.19-5.50); Red Cell Distribution Width 12.8 % (11.5-14.5); Segmented Neutrophils % 73.8 %
[2018-01-11 06:33] LABS: BUN/Creatinine Ratio 20 (6-26); Blood Urea Nitrogen 21 mg/dL (8-23); Calcium 8.4 mg/dL (8.6-10.3); Carbon Dioxide 36 mEq/L (23-29); Chloride 95 mEq/L (98-107); Glucose 104 mg/dL (70-105); Osmolality,Calculated 291 (280-300); Potassium 3.2 mEq/L (3.5-5.1); Sodium 139 mEq/L (136-145); eGFR For Non-African Americans > 60 (> 60)
[2018-01-11] MEDS: Insulin LISPRO 300 UNITS/3 ML VIAL SQ SCH ×5 (07:43→20:35)
[2018-01-11] MEDS: Pantoprazole 40 MG VIAL IVP SCH (08:05)
[2018-01-11] MEDS: *HR* GlipiZIDE 5 MG TABLET PO SCH ×2 (08:19→18:01)
[2018-01-11] MEDS: Chlorhexidine Rinse 15 ML MOUTHWASH MM SCH ×3 (08:19→20:35)
[2018-01-11] MEDS: Aspirin 81 MG TAB.CHEW PO SCH (08:20)
[2018-01-11] MEDS: Losartan/HCTZ 50-12.5 TABLET PO SCH (08:21)
[2018-01-11] MEDS: Colchicine 0.6 MG TABLET PO SCH ×3 (08:21→20:35)
[2018-01-11] MEDS: *HR* Amiodarone 200 MG TABLET PO SCH ×2 (08:21→20:34)
[2018-01-11] MEDS: *HR* Metformin 850 MG TABLET PO SCH ×2 (08:21→18:01)
--- NOTE | 2018-01-11 08:55 | Cardiothoracic Progress Note ---
Date of Encounter: 01/11/18 Time of Encounter: 08:52 - Assessment and plan (1) ST elevation (STEMI) myocardial infarction Current Visit: Yes Status: Acute We will increase the patient's amiodarone to 400 mg by mouth twice a day and his Lopressor 200 mg by mouth twice a day. He is on allopurinol and colchicine for his gout. We will add Indocin. Qualifiers: Involved coronary artery: other inferior wall coronary artery Qualified Code(s): I21.19 - ST elevation (STEMI) myocardial infarction involving other coronary artery of inferior wall - Subjective Interval history: The patient complains of gout in both big toes that is limiting his ambulation. Vital Signs, Last 4 Hours Temp Pulse Resp BP Pulse Ox 01/11/18 08:10 130 01/11/18 07:38 98.2 F 104 14 145/72 97 Oxgyen Flow Rate Oxygen Flow Rate (LPM) 4 Clinical Data, last 8 Hours Output, Urine Amount 525 Output, Urine Amount 500 Weight 01/09/18 01/10/18 01/11/18 23:59 23:59 23:59 Weight 108.5 kg 109.4 kg Lungs are clear to percussion and auscultation. Heart is in an atrial fibrillation. All incisions are healing well without signs of infection and the sternum is stable. He does have redness and swelling of both metatarsal great toe joints. - Labs 01/11/18 06:00 01/11/18 06:00 Lab Results, Last 24 hours 01/11/18 01/11/18 06:00 06:00 WBC 12.0 H Hgb 8.3 L Hct 25.0 L Plt Count 292 D Sodium 139 Potassium 3.2 L Chloride 95 L Carbon Dioxide 36 H BUN 21 Creatinine 1.03 Glucose 104 Calcium 8.4 L - VTE Documentation of Mechanical Device: Graduated compression elastic hosiery Consult Discharge Plan - Plan Referrals: Meme Scott MD [Partnered Physician] - 02/14/18 1:40 pm Aamir Ireland DO [Primary Care Provider] - 01/15/18 12:00 pm
[2018-01-11] MEDS: Budesonide/Formoterol 80/4.5 MDI IH SCH ×2 (11:44→20:15)
[2018-01-11] MEDS: Indomethacin 25 MG CAPSULE PO SCH ×2 (12:11→18:01)
[2018-01-11] MEDS: Metoprolol 100 MG TABLET PO SCH (20:34)
[2018-01-12] MEDS: *HR* Heparin 5,000 UNIT/ML VIAL SQ SCH ×2 (05:12→17:39)
[2018-01-12] MEDS: Budesonide/Formoterol 80/4.5 MDI IH SCH ×2 (08:00→20:08)
[2018-01-12] MEDS: Insulin LISPRO 300 UNITS/3 ML VIAL SQ SCH ×4 (08:00→21:20)
[2018-01-12] MEDS: *HR* Amiodarone 200 MG TABLET PO SCH ×2 (08:02→21:20)
[2018-01-12] MEDS: Indomethacin 25 MG CAPSULE PO SCH (08:02)
[2018-01-12] MEDS: Aspirin 81 MG TAB.CHEW PO SCH (08:02)
[2018-01-12] MEDS: *HR* GlipiZIDE 5 MG TABLET PO SCH ×2 (08:02→17:39)
[2018-01-12] MEDS: *HR* Metformin 850 MG TABLET PO SCH ×2 (08:02→17:39)
[2018-01-12] MEDS: Losartan/HCTZ 50-12.5 TABLET PO SCH (08:03)
[2018-01-12] MEDS: Colchicine 0.6 MG TABLET PO SCH ×2 (08:03→21:20)
[2018-01-12] MEDS: *HR* OxyCODONE/APAP 5/325 TABLET PO PRN (08:03)
[2018-01-12] MEDS: Pantoprazole 40 MG VIAL IVP SCH (08:03)
[2018-01-12] MEDS: Metoprolol 100 MG TABLET PO SCH ×2 (08:03→21:20)
[2018-01-12] MEDS: Chlorhexidine Rinse 15 ML MOUTHWASH MM SCH ×2 (08:04→21:19)
--- NOTE | 2018-01-12 09:22 | Electrocardiograph Report ---
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
[2018-01-12 12:21] LABS: Basophils % 0.2 %; Eosinophils # 0.2 K/mcL (0.0-0.6); Eosinophils % 1.8 %; Hematocrit 26.2 % (37.5-50.1); Hemoglobin 8.6 g/dL (12.9-16.9); Immature Granulocytes % 0.6 % (0-4); Lymphocytes # 1.2 K/mcL (0.6-4.6); Lymphocytes % 11.8 %; Mean Corpuscular HGB Conc 32.8 g/dL (31.6-35.5); Mean Corpuscular Hemoglobin 28.5 pg (28.0-33.3); Mean Corpuscular Volume 86.8 fL (83.0-100.0); Mean Platelet Volume 9.5 fL (9.4-12.4); Monocytes # 0.6 K/mcL (0.0-1.3); Monocytes % 5.3 %; Neutrophils # 8.3 K/mcL (1.6-8.9); Platelet Count 338 K/mcL (140-400); Red Blood Count 3.02 M/mcL (4.19-5.50); Red Cell Distribution Width 12.5 % (11.5-14.5); Segmented Neutrophils % 80.3 %
[2018-01-12 12:43] LABS: Amylase 48 Units/L (29-103); BUN/Creatinine Ratio 29 (6-26); Blood Urea Nitrogen 40 mg/dL (8-23); Calcium 8.5 mg/dL (8.6-10.3); Carbon Dioxide 34 mEq/L (23-29); Chloride 93 mEq/L (98-107); Glucose 215 mg/dL (70-105); Lipase 20 Units/L (11-82); Osmolality,Calculated 302 (280-300); Potassium 3.9 mEq/L (3.5-5.1); Sodium 138 mEq/L (136-145); eGFR For Non-African Americans 51 (> 60)
[2018-01-13] MEDS: *HR* Heparin 5,000 UNIT/ML VIAL SQ SCH ×2 (05:15→17:17)
[2018-01-13] MEDS: Insulin LISPRO 300 UNITS/3 ML VIAL SQ SCH ×4 (07:52→21:44)
[2018-01-13] MEDS: *HR* Metformin 850 MG TABLET PO SCH ×2 (08:01→17:17)
[2018-01-13] MEDS: *HR* Amiodarone 200 MG TABLET PO SCH ×2 (08:01→21:43)
[2018-01-13] MEDS: Aspirin 81 MG TAB.CHEW PO SCH (08:01)
[2018-01-13] MEDS: Budesonide/Formoterol 80/4.5 MDI IH SCH ×2 (08:01→20:44)
[2018-01-13] MEDS: Losartan/HCTZ 50-12.5 TABLET PO SCH (08:01)
[2018-01-13] MEDS: Metoprolol 100 MG TABLET PO SCH ×2 (08:01→21:43)
[2018-01-13] MEDS: *HR* GlipiZIDE 5 MG TABLET PO SCH ×2 (08:01→17:17)
[2018-01-13] MEDS: Chlorhexidine Rinse 15 ML MOUTHWASH MM SCH ×2 (08:02→21:43)
[2018-01-13] MEDS: Colchicine 0.6 MG TABLET PO SCH ×2 (08:02→21:43)
[2018-01-13] MEDS: Pantoprazole 40 MG VIAL IVP SCH (08:02)
[2018-01-13] MEDS: *HR* OxyCODONE/APAP 5/325 TABLET PO PRN (08:02)
--- NOTE | 2018-01-13 14:51 | Cardiothoracic Progress Note ---
Date of Encounter: 01/13/18 Time of Encounter: 14:50 - Subjective Procedure(s) Performed: Patient seen and examined. Yesterday he had nausea and vomiting and improved after stopping his as inflammatory. He continues on his culture seen and allopurinol. He denies any abdominal discomfort. His amylase and lipase as well as CBC and electrolytes were normal yesterday. His chest x-ray and abdominal films were within normal lungs. We discussed plans for possible discharge in the morning. Recommend the patient increase his activity as tolerated this on pulmonary toilet. Vital Signs, Last 4 Hours Temp Pulse Resp BP Pulse Ox 01/13/18 11:49 16 98 01/13/18 11:30 98.0 F 55 16 115/64 96 Oxgyen Flow Rate Oxygen Flow Rate (LPM) 2 Clinical Data, last 8 Hours Output, Urine Amount 100 Weight 01/11/18 01/12/18 01/13/18 23:59 23:59 23:59 Weight 110.4 kg 109.5 kg - Labs 01/12/18 11:49 01/12/18 11:49 - VTE Documentation of Mechanical Device: Graduated compression elastic hosiery Consult Discharge Plan - Plan Referrals: Meme Scott MD [Partnered Physician] - 02/14/18 1:40 pm Aamir Ireland DO [Primary Care Provider] - 01/15/18 12:00 pm
[2018-01-14] MEDS ORDERED: 0.9 % Sodium Chloride w KCl 20 MEQ/1,000 ML MLS IVC SCH (03:45)
[2018-01-14] MEDS ORDERED: 0.9 % Sodium Chloride w KCl 20 MEQ/1,000 ML MLS IVC ONE (03:47)
[2018-01-14 04:47] LABS: BUN/Creatinine Ratio 33 (6-26); Blood Urea Nitrogen 38 mg/dL (8-23); Calcium 8.7 mg/dL (8.6-10.3); Carbon Dioxide 30 mEq/L (23-29); Chloride 100 mEq/L (98-107); Glucose 81 mg/dL (70-105); Osmolality,Calculated 294 (280-300); Potassium 3.7 mEq/L (3.5-5.1); Sodium 138 mEq/L (136-145); eGFR For Non-African Americans > 60 (> 60)
[2018-01-14] MEDS: *HR* Heparin 5,000 UNIT/ML VIAL SQ SCH (05:50)
[2018-01-14 08:11] VITALS: BP 129/72
[2018-01-14] MEDS: Insulin LISPRO 300 UNITS/3 ML VIAL SQ SCH (08:13)
[2018-01-14] MEDS: Budesonide/Formoterol 80/4.5 MDI IH SCH (08:17)
[2018-01-14] MEDS: *HR* GlipiZIDE 5 MG TABLET PO SCH (08:22)
[2018-01-14] MEDS: Chlorhexidine Rinse 15 ML MOUTHWASH MM SCH (08:22)
[2018-01-14] MEDS: Metoprolol 100 MG TABLET PO SCH (08:22)
[2018-01-14] MEDS: *HR* Amiodarone 200 MG TABLET PO SCH (08:22)
[2018-01-14] MEDS: Aspirin 81 MG TAB.CHEW PO SCH (08:22)
[2018-01-14] MEDS: Losartan/HCTZ 50-12.5 TABLET PO SCH (08:22)
[2018-01-14] MEDS: *HR* Metformin 850 MG TABLET PO SCH (08:22)
[2018-01-14] MEDS: Pantoprazole 40 MG VIAL IVP SCH (08:22)
[2018-01-14] MEDS: Colchicine 0.6 MG TABLET PO SCH (09:15)
--- NOTE | 2018-01-14 10:53 | Discharge Summary ---
Date of Encounter: 01/14/18 Time of Encounter: 10:46 - Discharge Diagnosis (1) ST elevation (STEMI) myocardial infarction Priority: Primary Status: Acute Qualifiers: Involved coronary artery: other inferior wall coronary artery Qualified Code(s): I21.19 - ST elevation (STEMI) myocardial infarction involving other coronary artery of inferior wall (2) Diabetes mellitus Priority: Secondary Status: Chronic Qualifiers: Diabetes mellitus type: type [address] commander insulin use: with mcfp use Diabetes mellitus complication status: without complication Qualified Code(s): E11.9 - Type 2 diabetes mellitus without complications; Z79.4 - USP (current) use of insulin - Hospital Course Hospital course: Mr. Cruz is a 67 year old male The patient is a 67-year-old gentleman who has a history of diabetes, hypertension and hypercholesterolemia. He presented with a positive troponin. Cardiac catheterization revealed severe coronary artery disease and he was referred for surgery. On 01/04/2018, Dr. Scott took the patient to the operating room for coronary artery bypass grafting 2, utilizing his left internal mammary artery. The patient did have atrial fibrillation postoperatively, but was converted to normal sinus rhythm on amiodarone and beta annie. He also had problems with gout in both great toes. He states that at home when he gets this he simply walks with crutches and was not on medication. This was improved on 3 medications. However, we had to stop the Indocin because of GI complaints. The patient had diarrhea, but this had resolved by the time of discharge. The pacing wires were removed on January 14. At the time of discharge. The patient was afebrile. Lungs were clear to percussion and auscultation. Heart was in a normal sinus rhythm. All incisions were healing well without signs of infection and the sternum was stable. Discharge medications are on the med rec and include Percocet for pain. I did check the [place] automated Rx reporting system. The patient was postop and was given a one-week course. Appropriate precautions were given. He was to return to his previous and regular diet. He was to avoid heavy lifting for a total of 3 months after surgery. He was to walk as much as possible, but to avoid driving for 1 month. He was to follow up and see Dr. Scott in the office in 4 weeks as directed. 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 He was to call sooner for any difficulties. - Time Spent with Patient Total time spent providing and/or coordinating discharge services: - Discharge Medications Prescriptions: OxyCODONE/APAP 5/325 [Percocet 5/325 MG] 1 each PO Q4HR PRN 7 Days #20 tablet PRN Reason: Severe Pain Allopurinol [Zyloprim 300 MG] 300 mg PO DAILY #30 tablet Amiodarone [Cordarone] 200 mg PO DAILY #30 tablet Aspirin 81 mg PO DAILY #60 tab.chew Home Medications: Dulaglutide [Trulicity] 0.75 mg SQ TH 01/02/18 [History] Lansoprazole [Prevacid] 30 mg PO DAILY 01/02/18 [History] Metformin HCl 850 mg PO BID 01/02/18 [History] Metoprolol Succinate 50 mg PO DAILY 01/02/18 [History] Multivit-Min/FA/Lycopen/Lutein [Men 50 Plus Multivitamin Tab] 1 each PO DAILY [History] Olmesartan/Hydrochlorothiazide [Olmesartan-Hctz 20-12.5 mg Tab] 1 tab PO DAILY 01/02/18 [History] Simvastatin [Zocor] 40 mg PO HS 01/02/18 [History] Tadalafil [Cialis] 20 mg PO Q72H PRN 01/02/18 [History] glipiZIDE [Glipizide] 10 mg PO BID 01/02/18 [History] Allopurinol [Zyloprim 300 MG] 300 mg PO DAILY #30 tablet 01/14/18 [Rx] Amiodarone [Cordarone] 200 mg PO DAILY #30 tablet 01/14/18 [Rx] Aspirin 81 mg PO DAILY #60 tab.chew 01/14/18 [Rx] OxyCODONE/APAP 5/325 [Percocet 5/325 MG] 1 each PO Q4HR PRN 7 Days #20 tablet [Rx] Allergies/Adverse Reactions: 3 Allergy/AdvReac Type Severity Reaction Status Date / Time Penicillins AdvReac Hives Verified 01/02/18 13:59 Date of admission: 01/02/18 01:12 Primary care physician: Aamir Ireland DO Consults: 01/04/18 11:07 Consult to Cardiac Rehabilitation-Phase1 [CONS] Routine Comment: Reason for Consult: Post open heart Call Completed: Yes 01/07/18 14:30 Consult to Guest Services Director [CONS] Routine Reason for SW Consult: OPEN HEART 01/04, POSSIBLE PLACEMENT FOR REHAB Procedure(s) Performed: 01/04/2018. Coronary artery bypass grafting 2, utilizing the left internal mammary artery Discharging clinician: Markus Santoyo Anticipated date of discharge: 01/14/18 Physical Examination Vital Signs, Last 4 Hours Temp Pulse Resp BP Pulse Ox 01/14/18 08:08 98.2 F 65 19 129/72 95 - Patient Status Disposition: Home, Self-Care Condition: Undetermined Functional capacity at discharge: independent ambulation Overall status at discharge: patient is progressing back to baseline - Discharge Instructions Follow Up With: Meme Scott MD [Partnered Physician] - 02/14/18 1:40 pm Aamir Ireland DO [Primary Care Provider] - 01/15/18 12:00 pm [facility] Aspirin Cont/Prescribed at DC: Yes Beta Annie Cont/Prescribed at DC: Yes Statin Cont/Prescribed at DC: Yes KARL/ARB Cont/Prescribed at DC: Yes - VTE Documentation of Mechanical Device: Graduated compression elastic hosiery
== END 2018-01-14 12:00 | disposition home or self-care (01) | DRG 232 ==
LOC: EMEROOARM 21:45 → ICNU 23:01 → 2NNU 01-06 14:35
PROVIDERS: ADMIT Emergency Medicine; ATTEND Thoracic Surgery (Cardiothoracic Vascular Surgery)

== ENCOUNTER 2020-02-16 20:06 | Inpatient (IN) ==
[2020-02-16] MEDS ORDERED: Naloxone 0.4 MG/ML INJ IVP PRN (22:37)
[2020-02-16] MEDS ORDERED: Ondansetron 4 MG/2 ML VIAL IVP PRN (22:37)
[2020-02-16] MEDS ORDERED: Acetaminophen 325 MG TABLET PO PRN (22:37)
[2020-02-16] MEDS ORDERED: Dextrose Gel 15 GM/37.5 ML TUBE PO PRN ×2 (22:40)
[2020-02-16] MEDS ORDERED: *HR* Dextrose 50 % in Water (Vial) 50 ML VIAL IVP PRN (22:40)
[2020-02-16] MEDS ORDERED: D5% in Water 1,000 ML IVC PRN (22:40)
[2020-02-16] MEDS ORDERED: Vancomycin 2,000 MG/520 ML IV.SOLN IVPB ONE (23:00)
[2020-02-17] MEDS: Cefepime HCl 2,000 MG in Water for inj. (sterile) 20 ML IVP SCH ×3 (00:03→16:07)
[2020-02-17] MEDS: Insulin LISPRO 300 UNITS/3 ML VIAL SQ SCH ×4 (00:08→20:09)
[2020-02-17 04:58] LABS: INR 1.3; Prothrombin Time 15.1 Seconds (9.4-12.1)
[2020-02-17 04:59] LABS: Activated Partial Thrombo Time 23.2 Seconds (26.0-36.0)
[2020-02-17 05:07] LABS: Hematocrit 43.2 % (37.5-50.1); Hemoglobin 14.5 g/dL (12.9-16.9); Mean Corpuscular HGB Conc 33.6 g/dL (31.6-35.5); Mean Corpuscular Hemoglobin 30.6 pg (28.0-33.3); Mean Corpuscular Volume 91.1 fL (83.0-100.0); Mean Platelet Volume 10.1 fL (9.4-12.4); Platelet Count 238 K/mcL (140-400); Red Blood Count 4.74 M/mcL (4.19-5.50); Red Cell Distribution Width 13.1 % (11.5-14.5); White Blood Count 14.6 K/mcL (4.3-11.1)
[2020-02-17 05:09] LABS: Magnesium 1.2 mg/dL (1.6-2.6); Phosphorous 3.1 mg/dL (2.7-4.5)
[2020-02-17] MEDS ORDERED: Magnesium Sulfate 1 GM/102 ML PIGGYBACK IVPB ONE (05:14)
[2020-02-17 05:15] LABS: BUN/Creatinine Ratio 36 (6-26); Blood Urea Nitrogen 42 mg/dL (8-23); Calcium 8.3 mg/dL (8.6-10.3); Carbon Dioxide 27 mEq/L (23-29); Chloride 107 mEq/L (98-107); Glucose 149 mg/dL (70-105); Osmolality,Calculated 307 (280-300); Potassium 3.5 mEq/L (3.5-5.1); Sodium 142 mEq/L (136-145); eGFR For African Americans > 60 (> 60); eGFR For Non-African Americans > 60 (> 60)
[2020-02-17] MEDS ORDERED: *HR* FentaNYL (PF) 100 MCG/2 ML VIAL ONE (09:06)
[2020-02-17] MEDS ORDERED: *HR* Midazolam HCl 2 MG/2 ML VIAL ONE (09:07)
[2020-02-17] MEDS ORDERED: *HR* Propofol 200 MG/20 ML VIAL IVP ONE (09:08)
[2020-02-17] MEDS ORDERED: Dexamethasone 4 MG/ML VIAL ONE (09:16)
[2020-02-17] MEDS ORDERED: Ondansetron 4 MG/2 ML VIAL ONE (09:16)
[2020-02-17] MEDS ORDERED: Lidocaine -MPF 2% 2 ML VIAL ONE (09:16)
[2020-02-17] MEDS ORDERED: *HR* OxyCODONE Immed Rel 5 MG TABLET PO PRN ×2 (10:12→12:07)
[2020-02-17] MEDS ORDERED: *HR* HYDROmorphone PF 0.5 MG/0.5 ML SYRINGE IVP PRN ×2 (10:12→12:07)
[2020-02-17] MEDS ORDERED: Acetaminophen IV 1,000 MG/100 ML INFUS..BTL ONE (10:19)
[2020-02-17] MEDS ORDERED: *HR* Metoprolol 5 MG/5 ML VIAL IVP ONE (10:45)
[2020-02-17] MEDS ORDERED: Vancomycin 1,500 MG/265 ML IV.SOLN IVPB SCH ×2 (12:00→12:30)
[2020-02-17] MEDS ORDERED: Naloxone 0.4 MG/ML INJ IVP PRN (12:07)
[2020-02-17] MEDS ORDERED: D5% in Water 1,000 ML IVC PRN (12:07)
[2020-02-17] MEDS ORDERED: Dextrose Gel 15 GM/37.5 ML TUBE PO PRN ×2 (12:07)
[2020-02-17] MEDS ORDERED: Acetaminophen 325 MG TABLET PO PRN (12:07)
[2020-02-17] MEDS ORDERED: Ondansetron 4 MG/2 ML VIAL IVP PRN (12:07)
[2020-02-17] MEDS ORDERED: *HR* Dextrose 50 % in Water (Vial) 50 ML VIAL IVP PRN (12:07)
[2020-02-17] MEDS: *HR* Heparin 5,000 UNIT/ML VIAL SQ SCH (17:08)
[2020-02-17] MEDS ORDERED: Insulin LISPRO 300 UNITS/3 ML VIAL SQ SCH (18:00)
[2020-02-17] MEDS: Aspirin Enteric Coated 81 MG Tablet PO SCH (20:08)
[2020-02-17] MEDS: cilostazoL 100 MG TABLET PO SCH (20:08)
[2020-02-18] MEDS ORDERED: *HR* Metoprolol 5 MG/5 ML VIAL IVP PRN (00:31)
[2020-02-18] MEDS ORDERED: Prochlorperazine 10 MG/2 ML VIAL IVP PRN (00:31)
[2020-02-18] MEDS: Cefepime HCl 2,000 MG in Water for inj. (sterile) 20 ML IVP SCH ×3 (00:32→17:07)
[2020-02-18] MEDS: Vancomycin 1,500 MG/265 ML IV.SOLN IVPB SCH ×2 (00:33→14:28)
[2020-02-18] MEDS ORDERED: Prochlorperazine 10 MG/2 ML VIAL IVP ONE (00:51)
[2020-02-18 00:57] LABS: Basophils % 0.1 %; Eosinophils % 0.1 %; Hematocrit 47.2 % (37.5-50.1); Hemoglobin 15.7 g/dL (12.9-16.9); Immature Granulocytes % 0.4 % (0-4); Lymphocytes % 7.2 %; Mean Corpuscular HGB Conc 33.3 g/dL (31.6-35.5); Mean Corpuscular Hemoglobin 30.3 pg (28.0-33.3); Mean Corpuscular Volume 91.1 fL (83.0-100.0); Mean Platelet Volume 10.6 fL (9.4-12.4); Monocytes # 0.7 K/mcL (0.0-1.3); Monocytes % 4.8 %; Neutrophils # 11.9 K/mcL (1.6-8.9); Platelet Count 246 K/mcL (140-400); Red Blood Count 5.18 M/mcL (4.19-5.50); Segmented Neutrophils % 87.4 %; White Blood Count 13.6 K/mcL (4.3-11.1)
[2020-02-18 01:09] LABS: BUN/Creatinine Ratio 32 (6-26); Blood Urea Nitrogen 38 mg/dL (8-23); C-Reactive Protein 9 mg/L (Less than 10); Carbon Dioxide 21 mEq/L (23-29); Chloride 101 mEq/L (98-107); Glucose 218 mg/dL (70-105); Magnesium 1.2 mg/dL (1.6-2.6); Osmolality,Calculated 300 (280-300); Phosphorous 2.1 mg/dL (2.7-4.5); Potassium 4.2 mEq/L (3.5-5.1); Sodium 137 mEq/L (136-145); eGFR For African Americans > 60 (> 60); eGFR For Non-African Americans > 60 (> 60)
[2020-02-18] MEDS: *HR* Heparin 5,000 UNIT/ML VIAL SQ SCH ×2 (05:10→17:07)
[2020-02-18] MEDS: Insulin LISPRO 300 UNITS/3 ML VIAL SQ SCH ×4 (08:08→21:50)
[2020-02-18] MEDS: allopurinoL 300 MG TABLET PO SCH (08:08)
[2020-02-18] MEDS: Aspirin Enteric Coated 81 MG Tablet PO SCH ×2 (08:08→21:49)
[2020-02-18] MEDS: amLODIPine 5 MG TABLET PO SCH (08:08)
[2020-02-18] MEDS: cilostazoL 100 MG TABLET PO SCH ×2 (08:08→21:49)
[2020-02-18] MEDS: Metoprolol XL (24 HR) Succ 50 MG TAB.ER.24H PO SCH (08:08)
[2020-02-18] MEDS ORDERED: *HR* HYDROcodone/Acet 5/325 mg TABLET PO PRN (11:02)
[2020-02-18] MEDS ORDERED: Vancomycin 1,500 MG/265 ML IV.SOLN IVPB SCH (12:00)
[2020-02-18] MEDS ORDERED: Vancomycin 2,000 MG/520 ML IV.SOLN IVPB SCH (18:00)
[2020-02-18] MEDS ORDERED: Insulin DETEMIR 100 UNIT/ML X5UNITS SQ SCH (21:00)
[2020-02-19] MEDS: Cefepime HCl 2,000 MG in Water for inj. (sterile) 20 ML IVP SCH ×2 (00:17→07:51)
[2020-02-19 03:13] LABS: Basophils % 0.4 %; Eosinophils # 0.1 K/mcL (0.0-0.6); Eosinophils % 0.7 %; Hemoglobin 14.8 g/dL (12.9-16.9); Immature Granulocytes % 0.3 % (0-4); Lymphocytes # 1.9 K/mcL (0.6-4.6); Lymphocytes % 19.3 %; Mean Corpuscular HGB Conc 32.2 g/dL (31.6-35.5); Mean Corpuscular Hemoglobin 29.7 pg (28.0-33.3); Mean Corpuscular Volume 92.4 fL (83.0-100.0); Mean Platelet Volume 10.5 fL (9.4-12.4); Monocytes # 0.6 K/mcL (0.0-1.3); Monocytes % 5.6 %; Neutrophils # 7.2 K/mcL (1.6-8.9); Platelet Count 258 K/mcL (140-400); Red Blood Count 4.98 M/mcL (4.19-5.50); Red Cell Distribution Width 12.9 % (11.5-14.5); Segmented Neutrophils % 73.7 %; White Blood Count 9.8 K/mcL (4.3-11.1)
[2020-02-19 03:31] LABS: BUN/Creatinine Ratio 30 (6-26); Blood Urea Nitrogen 35 mg/dL (8-23); Calcium 8.9 mg/dL (8.6-10.3); Carbon Dioxide 26 mEq/L (23-29); Chloride 102 mEq/L (98-107); Glucose 202 mg/dL (70-105); Magnesium 1.4 mg/dL (1.6-2.6); Osmolality,Calculated 298 (280-300); Potassium 3.8 mEq/L (3.5-5.1); Sodium 137 mEq/L (136-145); eGFR For African Americans > 60 (> 60); eGFR For Non-African Americans > 60 (> 60)
[2020-02-19] MEDS: *HR* Heparin 5,000 UNIT/ML VIAL SQ SCH (04:42)
[2020-02-19] MEDS: Metoprolol XL (24 HR) Succ 50 MG TAB.ER.24H PO SCH (07:51)
[2020-02-19] MEDS: allopurinoL 300 MG TABLET PO SCH (07:51)
[2020-02-19] MEDS: Aspirin Enteric Coated 81 MG Tablet PO SCH (07:51)
[2020-02-19] MEDS: amLODIPine 5 MG TABLET PO SCH (07:51)
[2020-02-19] MEDS: cilostazoL 100 MG TABLET PO SCH (07:51)
[2020-02-19] MEDS: Insulin LISPRO 300 UNITS/3 ML VIAL SQ SCH (07:52)
[2020-02-19] MEDS ORDERED: hydroCHLOROthiazide 25 MG TABLET PO SCH (09:00)
[2020-02-19 10:52] VITALS: BP 134/73
[2020-02-19] MEDS ORDERED: FLU Vac QV 20-21 (6Month+)/PF 0.5 ML SYRINGE IM ONE (10:56)
== END 2020-02-19 12:05 | disposition home or self-care (01) | DRG 603 ==
LOC: 2ANU → SUATTDRO 02-18 14:35
PROVIDERS: ADMIT Family Medicine; ATTEND Family Medicine

== ENCOUNTER 2020-10-10 14:00 | Observation (INO) ==
[2020-10-10] MEDS ORDERED: Ondansetron 4 MG/2 ML VIAL IVP PRN (16:01)
[2020-10-10] MEDS ORDERED: *HR* Promethazine 25 MG/ML VIAL IM PRN (16:01)
[2020-10-10] MEDS ORDERED: *HR* Dextrose 50 % in Water (Vial) 50 ML VIAL IVP PRN (16:02)
[2020-10-10] MEDS ORDERED: D5% in Water 1,000 ML IVC PRN (16:02)
[2020-10-10] MEDS ORDERED: Dextrose Gel 15 GM/37.5 ML TUBE PO PRN ×2 (16:02)
[2020-10-10] MEDS ORDERED: Perflutren Lipid Microsphere 1.3 ML in 0.9 % Sodium Chloride 8.7 ML IVP PRN (16:06)
[2020-10-10] MEDS ORDERED: Melatonin 3 MG TABLET PO PRN (16:33)
[2020-10-10] MEDS ORDERED: Naloxone 0.4 MG/ML INJ IVP PRN (16:33)
[2020-10-10] MEDS ORDERED: Ipratropium/Albuterol Neb 3 ML IH PRN (16:50)
[2020-10-10] MEDS ORDERED: Doxycycline 100 MG CAPSULE PO ONE (16:57)
[2020-10-10] MEDS: Insulin LISPRO 300 UNITS/3 ML VIAL SUBQ SCH ×2 (18:28→19:36)
[2020-10-10 20:00] LABS: Bilirubin,Urine Negative (Negative); Blood,Urine Negative (Negative); Clarity,Urine Clear (Clear); Color,Urine Colorless (Yellow); Glucose,Urine (UA) >=1000 mg/dL (Normal); Ketones,Urine Negative (Negative); Leukocyte Esterase,Urine Negative (Negative); Nitrite,Urine Negative (Negative); PH,Urine 5.5 pH Units (5.0-8.0); Protein,Urine Negative (Neg-Trace); RBC,Urine 0-3 per hpf (0-3); Specific Gravity,Urine 1.011 (1.010-1.025); Urobilinogen,Urine Normal (Normal); WBC,Urine 0-3 per hpf (0-3)
[2020-10-10 20:19] LABS: Amphetamine Screen,Urine Negative ng/mL (Cutoff=1000); Barbiturate Screen,Urine Negative ng/mL (Cutoff=200); Benzodiazepines Screen,Urine Negative ng/mL (Cutoff=200); Cannabinoid Screen,Urine Positive ng/mL (Cutoff = 50); Cocaine Screen,Urine Negative ng/mL (Cutoff= 300); Opiate Screen,Urine Negative ng/mL (Cutoff=300); Phencyclidine Screen,Urine Negative ng/mL (Cutoff=25)
[2020-10-10] MEDS: 0.9 % Sodium Chloride 1,000 ML IVC SCH (20:28)
[2020-10-10 21:48] LABS: Adenovirus Not Detected (Not Detect); Bordetella Pertussis Not Detected (Not Detect); Chlamydophila pneumoniae Not Detected (Not Detect); Coronavirus 229E Not Detected (Not Detect); Coronavirus HKU1 Not Detected (Not Detect); Coronavirus NL63 Not Detected (Not Detect); Coronavirus OC43 Not Detected (Not Detect); Human Metapneumovirus Not Detected (Not Detect); Human Rhinovirus/Enterovirus Not Detected (Not Detect); Influenza A Subtype 2009 H1 Not Detected (Not Detect); Influenza B Not Detected (Not Detect); Mycoplasma pneumoniae Not Detected (Not Detect); Parainfluenza Virus 1 Not Detected (Not Detect); Parainfluenza Virus 2 Not Detected (Not Detect); Parainfluenza Virus 3 Not Detected (Not Detect); Parainfluenza Virus 4 Not Detected (Not Detect); Respiratory Syncytial Virus Not Detected (Not Detect); SARS-CoV-2 Not Detected (Not Detect)
[2020-10-11 05:29] LABS: Basophils % 0.3 %; Eosinophils # 0.1 K/mcL (0.0-0.6); Eosinophils % 0.4 %; Hematocrit 50.3 % (37.5-50.1); Hemoglobin 16.9 g/dL (12.9-16.9); Immature Granulocytes % 0.7 % (0-4); Lymphocytes # 3.5 K/mcL (0.6-4.6); Lymphocytes % 30.1 %; Mean Corpuscular HGB Conc 33.6 g/dL (31.6-35.5); Mean Corpuscular Hemoglobin 30.2 pg (28.0-33.3); Mean Corpuscular Volume 89.8 fL (83.0-100.0); Mean Platelet Volume 10.5 fL (9.4-12.4); Monocytes % 8.9 %; Platelet Count 201 K/mcL (140-400); Segmented Neutrophils % 59.6 %; White Blood Count 11.7 K/mcL (4.3-11.1)
[2020-10-11 05:48] LABS: Calcium 9.3 mg/dL (8.6-10.3); Chol/HDL Ratio 4.3 (0-4.9); Magnesium 1.8 mg/dL (1.6-2.6); Phosphorous 3.8 mg/dL (2.7-4.5); Potassium 3.6 mEq/L (3.5-5.1)
[2020-10-11] MEDS: Insulin LISPRO 300 UNITS/3 ML VIAL SUBQ SCH ×4 (07:56→20:59)
[2020-10-11 12:19] LABS: Estimated Average Glucose 154 mg/dl
[2020-10-11] MEDS: 0.9 % Sodium Chloride 1,000 ML IVC SCH (12:47)
[2020-10-11] MEDS: Metoprolol XL (24 HR) Succ 50 MG TAB.ER.24H PO SCH (16:12)
[2020-10-12] MEDS: 0.9 % Sodium Chloride 1,000 ML IVC SCH (04:21)
[2020-10-12 05:51] LABS: Basophils % 0.3 %; Eosinophils # 0.1 K/mcL (0.0-0.6); Eosinophils % 0.9 %; Hematocrit 49.3 % (37.5-50.1); Hemoglobin 16.5 g/dL (12.9-16.9); Immature Granulocytes % 0.8 % (0-4); Lymphocytes # 2.4 K/mcL (0.6-4.6); Lymphocytes % 20.2 %; Mean Corpuscular HGB Conc 33.5 g/dL (31.6-35.5); Mean Corpuscular Hemoglobin 29.9 pg (28.0-33.3); Mean Corpuscular Volume 89.5 fL (83.0-100.0); Mean Platelet Volume 10.8 fL (9.4-12.4); Monocytes # 0.8 K/mcL (0.0-1.3); Monocytes % 7.1 %; Neutrophils # 8.2 K/mcL (1.6-8.9); Platelet Count 181 K/mcL (140-400); Red Blood Count 5.51 M/mcL (4.19-5.50); Red Cell Distribution Width 14.1 % (11.5-14.5); Segmented Neutrophils % 70.7 %; White Blood Count 11.7 K/mcL (4.3-11.1)
[2020-10-12 07:22] VITALS: BP 146/98; PULSE 86; TEMP 97.9; O2SAT 95
[2020-10-12] MEDS: Metoprolol XL (24 HR) Succ 50 MG TAB.ER.24H PO SCH (08:21)
[2020-10-12 08:25] LABS: Calcium 9.8 mg/dL (8.6-10.3); Potassium 4.9 mEq/L (3.5-5.1)
[2020-10-12] MEDS ORDERED: amLODIPine 5 MG TABLET PO SCH (09:00)
[2020-10-12] MEDS ORDERED: Aspirin Enteric Coated 81 MG Tablet PO SCH (09:00)
== END 2020-10-12 12:01 | disposition home or self-care (01) ==
LOC: 2NENU → SUATTDRO 15:07
PROVIDERS: ADMIT Internal Medicine; ATTEND Internal Medicine

== ENCOUNTER 2021-12-09 19:04 | Inpatient (IN) ==
[2021-12-09] MEDS ORDERED: 0.9 % Sodium Chloride 1,000 ML IVC ONE (19:13)
[2021-12-09] MEDS ORDERED: Ondansetron 4 MG/2 ML VIAL IVP ONE (19:15)
[2021-12-09 19:34] LABS: Hematocrit 47.7 % (37.5-50.1); Hemoglobin 16.7 g/dL (12.9-16.9); Mean Corpuscular Hemoglobin 30.1 pg (28.0-33.3); Mean Corpuscular Volume 85.9 fL (83.0-100.0); Mean Platelet Volume 11.9 fL (9.4-12.4); Platelet Count 210 K/mcL (140-400); Red Blood Count 5.55 M/mcL (4.19-5.50); Red Cell Distribution Width 12.7 % (11.5-14.5); White Blood Count 19.4 K/mcL (4.3-11.1)
[2021-12-09] MEDS ORDERED: 0.9 % Sodium Chloride 1,000 ML ONE (19:39)
[2021-12-09 19:43] LABS: INR 1.3; Prothrombin Time 14.7 Seconds (9.4-12.1)
[2021-12-09 19:46] LABS: Activated Partial Thrombo Time 28.8 Seconds (26.0-36.0)
[2021-12-09 19:46] LABS: VBG HCO3 16 mEq/L (21-27); VBG PCO2 31 mmHg (41-51); VBG PH 7.32 pH Units (7.32-7.42); VBG PO2 207 mmHg (25-50)
[2021-12-09 19:53] LABS: Large Platelets Present (Not Present); Lymphocytes # 2.3 K/mcL (0.6-4.6); Neutrophils # 11.6 K/mcL (1.6-8.9); Platelet Estimate Normal (Normal)
[2021-12-09 20:15] LABS: Albumin 3.2 g/dL (3.5-5.7); Albumin/Globulin Ratio 1.1 (1.1-2.2); Bilirubin,Direct 0.1 mg/dL (0.0-0.2); Bilirubin,Indirect 0.5 mg/dL (0.0-1.0); Bilirubin,Total 0.6 mg/dL (0.3-1.0); Calcium 13.1 mg/dL (8.6-10.3); Globulin 2.9 g/dL (2.4-3.5); Magnesium 2.2 mg/dL (1.6-2.6); Potassium 4.3 mEq/L (3.5-5.1); Total Protein 6.1 g/dL (6.4-8.9); Troponin I 0.15 ng/mL (< 0.04)
[2021-12-09] MEDS: Ringers Solution, Lactated 1,000 ML IVC SCH (20:43)
[2021-12-09] MEDS ORDERED: *HR* Etomidate 20 MG/10 ML AMPUL IVP ONE ×2 (20:52→20:53)
[2021-12-09 20:58] LABS: Influenza A PCR Negative (Negative); Influenza B PCR Negative (Negative); Resp. Syncytial Virus PCR Negative (Negative); SARS-CoV-2 by PCR (In House) Negative (Negative)
[2021-12-09] MEDS ORDERED: Vancomycin 1,750 MG/517.5 ML IV.SOLN IVPB ONE (21:00)
[2021-12-09] MEDS ORDERED: Cefepime HCl 2,000 MG in 0.9 % Sodium Chloride 10 ML IVP ONE (21:00)
[2021-12-09] MEDS ORDERED: Naloxone 0.4 MG/ML INJ IVP PRN (21:11)
[2021-12-09] MEDS ORDERED: D5% in 0.45% NACL 1,000 ML IVC PRN (22:13)
[2021-12-09] MEDS ORDERED: Insulin Regular, Human 100 UNIT/ML IV PRN ×2 (22:13)
[2021-12-09] MEDS: 0.9 % Sodium Chloride 1,000 ML IVC SCH (22:41)
[2021-12-09 23:03] LABS: Hematocrit 45.3 % (37.5-50.1); Hemoglobin 16.2 g/dL (12.9-16.9); Mean Corpuscular HGB Conc 35.8 g/dL (31.6-35.5); Mean Corpuscular Hemoglobin 30.3 pg (28.0-33.3); Mean Corpuscular Volume 84.7 fL (83.0-100.0); Mean Platelet Volume 11.8 fL (9.4-12.4); Platelet Count 177 K/mcL (140-400); Red Blood Count 5.35 M/mcL (4.19-5.50); Red Cell Distribution Width 12.7 % (11.5-14.5); White Blood Count 11.2 K/mcL (4.3-11.1)
[2021-12-09 23:23] LABS: Platelet Estimate Normal (Normal)
[2021-12-09 23:26] LABS: Lymphocytes # 2.7 K/mcL (0.6-4.6); Monocytes # 0.9 K/mcL (0.0-1.3); Neutrophils # 6.7 K/mcL (1.6-8.9)
[2021-12-09] MEDS ORDERED: Vancomycin 1,750 MG in 0.9 % Sodium Chloride 250 ML IVPB SCH (23:45)
[2021-12-09] MEDS: 0.9 % Sodium Chloride w KCl 20 MEQ/1,000 ML MLS IVC SCH (23:54)
[2021-12-09 23:58] LABS: Albumin/Globulin Ratio 1.2 (1.1-2.2); Bilirubin,Total 0.5 mg/dL (0.3-1.0); Calcium 12.5 mg/dL (8.6-10.3); Globulin 2.6 g/dL (2.4-3.5); Potassium 4.3 mEq/L (3.5-5.1); Total Protein 5.6 g/dL (6.4-8.9)
[2021-12-10] MEDS: 0.9 % Sodium Chloride 1,000 ML IVC SCH ×2 (01:07→06:33)
[2021-12-10] MEDS: Ringers Solution, Lactated 1,000 ML IVC SCH ×2 (01:08→06:33)
[2021-12-10] MEDS: *HR* Heparin 5,000 UNIT/ML VIAL SQ SCH ×4 (01:09→23:40)
[2021-12-10] MEDS: 0.9 % Sodium Chloride w KCl 20 MEQ/1,000 ML MLS IVC SCH ×2 (01:09→06:33)
[2021-12-10] MEDS: D5% in 0.45% NACL w KCl 20 MEQ/1,000 ML MLS IVC PRN ×2 (03:08→07:18)
[2021-12-10] MEDS ORDERED: *HR* Metoprolol 5 MG/5 ML VIAL IVP ONE (03:11)
[2021-12-10] MEDS ORDERED: 0.9 % Sodium Chloride 1,000 ML IVC SCH (09:00)
[2021-12-10] MEDS: *HR* Dextrose 50 % in Water (Syg) 50 ML SYRINGE IVP PRN (09:07)
[2021-12-10] MEDS ORDERED: Dexmedetomidine HCl 400 MCG/100 ML MLS IVC ONE (09:49)
[2021-12-10] MEDS: Dexmedetomidine HCl 400 MCG/100 ML MLS IVC SCH (09:50)
[2021-12-10] MEDS ORDERED: *HR* Midazolam HCl 5 MG/5 ML VIAL IVP ONE ×2 (10:06→12:54)
[2021-12-10] MEDS ORDERED: *HR* Etomidate 20 MG/10 ML AMPUL IVP ONE (10:06)
[2021-12-10 10:14] LABS: Calcium 11.3 mg/dL (8.6-10.3); Potassium 3.7 mEq/L (3.5-5.1)
[2021-12-10 10:37] LABS: VBG Ionized Calcium 1.42 mmol/L (1.15-1.35)
[2021-12-10] MEDS ORDERED: Calcitonin-Salmon, Synthetic 400 UNIT/2 ML VIAL IM SCH (10:45)
[2021-12-10] MEDS: D5% in 0.9% NACL 1,000 ML IVC SCH ×5 (10:52→23:33)
[2021-12-10] MEDS: Calcitonin-Salmon, Synthetic 400 UNIT/2 ML VIAL IM SCH ×2 (11:52→20:58)
[2021-12-10] MEDS: Cefepime HCl 1,000 MG in 0.9 % Sodium Chloride 10 ML IVP SCH ×2 (11:53→23:34)
[2021-12-10] MEDS: Insulin LISPRO 300 UNITS/3 ML VIAL SUBQ SCH ×3 (12:29→23:55)
[2021-12-10] MEDS: Phenylephrine 20 MG in 0.9 % Sodium Chloride 250 ML IVC SCH ×2 (12:45→18:56)
[2021-12-10] MEDS: Norepinephrine 4 MG/254 ML IV.SOLN IVC SCH ×2 (12:50→14:00)
[2021-12-10] MEDS: FentaNYL (PF) 1,000 MCG/100 ML IV.SOLN IVC SCH ×2 (13:02→20:58)
[2021-12-10] MEDS ORDERED: DESMOPRESSIN ACETATE IVPB ONE (13:23)
[2021-12-10] MEDS ORDERED: SODIUM CHLORIDE 0.9% IVPB ONE (13:23)
[2021-12-10 13:24] LABS: Calcium 10.6 mg/dL (8.6-10.3); Thyroid Stimulating Hormone 1.577 mcIU/mL (0.340-5.600)
[2021-12-10] MEDS ORDERED: Norepinephrine 4 MG/254 ML IV.SOLN IVC ONE (13:58)
[2021-12-10 14:04] LABS: Hematocrit 44.5 % (37.5-50.1); Hemoglobin 15.9 g/dL (12.9-16.9); Mean Corpuscular HGB Conc 35.7 g/dL (31.6-35.5); Mean Corpuscular Hemoglobin 30.9 pg (28.0-33.3); Mean Corpuscular Volume 86.4 fL (83.0-100.0); Platelet Count 205 K/mcL (140-400); Red Blood Count 5.15 M/mcL (4.19-5.50); Red Cell Distribution Width 12.8 % (11.5-14.5)
[2021-12-10] MEDS ORDERED: *HR* Adenosine 6 MG/2 ML SYRINGE IVP ONE (14:05)
[2021-12-10 14:07] LABS: White Blood Count 17.5 K/mcL (4.3-11.1)
[2021-12-10] MEDS ORDERED: 0.9 % Sodium Chloride 1,000 ML ONE ×2 (14:09→14:23)
[2021-12-10 14:26] LABS: Lymphocytes # 4.2 K/mcL (0.6-4.6); Monocytes # 1.9 K/mcL (0.0-1.3); Neutrophils # 9.6 K/mcL (1.6-8.9)
[2021-12-10 14:27] LABS: Platelet Estimate Normal (Normal)
[2021-12-10 14:34] LABS: INR 1.4; Prothrombin Time 15.4 Seconds (9.4-12.1)
[2021-12-10] MEDS: Midazolam HCl 50 MG/50 ML IV.SOLN IVC SCH (14:49)
[2021-12-10] MEDS: Norepinephrine 32 MG/250 ML IV.SOLN IVC SCH (15:02)
[2021-12-10 15:03] LABS: Albumin 2.8 g/dL (3.5-5.7); Albumin/Globulin Ratio 1.1 (1.1-2.2); Bilirubin,Total 0.5 mg/dL (0.3-1.0); Calcium 10.7 mg/dL (8.6-10.3); Globulin 2.5 g/dL (2.4-3.5); Potassium 4.5 mEq/L (3.5-5.1); Total Protein 5.3 g/dL (6.4-8.9)
[2021-12-10 15:07] LABS: Adenovirus F 40/41 PCR Not detected (Not detect); Astrovirus PCR Not detected (Not detect); C.difficile Toxin A/B Gene PCR Not detected (Not detect); Campylobacter by PCR Not detected (Not detect); Cryptosporidium by PCR Not detected (Not detect); Cyclospora cayetanensis PCR Not detected (Not detect); Entamoeba histolytica PCR Not detected (Not detect); Enteroaggregative E.coli(EAEC) Not detected (Not detect); Enteropathogenic E.coli(EPEC) DETECTED (Not detect); Enterotoxigenic E.coli (ETEC) Not detected (Not detect); Giardia lamblia PCR Not detected (Not detect); Norovirus GI/GII PCR Not detected (Not detect); Plesiomonas shigelloides PCR Not detected (Not detect); Rotavirus A PCR Not detected (Not detect); Salmonella PCR Not detected (Not detect); Sapovirus PCR Not detected (Not detect); Shig/EnteroinvasiveE coli EIEC Not detected (Not detect); Shigalike tox-prod E coli STEC Not detected (Not detect); Vibrio PCR Not detected (Not detect); Vibrio cholerae PCR Not detected (Not detect); Yersinia enterocolitica PCR Not detected (Not detect)
[2021-12-10] MEDS: Pantoprazole 40 MG in 0.9 % Sodium Chloride Mini Bag 100 ML IVC SCH ×2 (15:41→20:22)
[2021-12-10 15:56] LABS: ABG Base Excess -8 mEq/L (-2 to 3); ABG HCO3 20 mEq/L (21-27); ABG Oxygen Saturation 100 % (95-98); ABG PCO2 48 mmHg (35-45); ABG PH 7.23 pH Units (7.32-7.45); ABG PO2 252 mmHg (85-104); ABG TCO2 22 mEq/L (20-26); Blood Gas VT 500 cc
[2021-12-10 16:11] LABS: Amorphous Sediment,Urine Few per hpf (None-Few); Bacteria,Urine Few per hpf (None-Few); Bilirubin,Urine Negative (Negative); Blood,Urine Large (Negative); Clarity,Urine Turbid (Clear); Color,Urine Yellow (Yellow); Glucose,Urine (UA) Normal (Normal); Hyaline Casts,Urine Few per lpf (None Seen); Ketones,Urine Negative (Negative); Leukocyte Esterase,Urine Negative (Negative); Mucus,Urine Few per lpf (None-Few); Nitrite,Urine Negative (Negative); PH,Urine 5.5 pH Units (5.0-8.0); Protein,Urine 70 mg/dL (Neg-Trace); RBC,Urine TNTC per hpf (0-3); Specific Gravity,Urine 1.017 (1.010-1.025); Squamous Epithelial Cell,Urine Few per hpf (None-Few); Urobilinogen,Urine Normal (Normal)
[2021-12-10 16:15] LABS: Sodium, Urine 55.9 mEq/L
[2021-12-10] MEDS: MetroNIDAZOLE 500 MG/100 ML 500 MG/100 ML BAG IVPB SCH ×2 (16:45→19:58)
[2021-12-10 17:18] LABS: Magnesium 1.6 mg/dL (1.6-2.6)
[2021-12-10] MEDS: Phenylephrine 100 MG in 0.9 % Sodium Chloride 240 ML IVC SCH (19:57)
[2021-12-10] MEDS ORDERED: Artificial Tears SOLN 15 ML BOTTLE BOTH EYES PRN (20:23)
[2021-12-10] MEDS: Chlorhexidine Rinse 15 ML MOUTHWASH MM SCH (20:58)
[2021-12-10] MEDS ORDERED: Vancomycin 1,250 MG/262.5 ML IV.SOLN IVPB ONE (22:00)
[2021-12-10] MEDS ORDERED: Amiodarone Premix 360 MG/200 ML BAG IVC ONE (23:21)
[2021-12-10] MEDS: Amiodarone Premix 360 MG/200 ML BAG IVC SCH (23:30)
[2021-12-10] MEDS: Artificial Tears SOLN 15 ML BOTTLE BOTH EYES SCH (23:32)
[2021-12-11] MEDS: Pantoprazole 40 MG in 0.9 % Sodium Chloride Mini Bag 100 ML IVC SCH ×6 (00:55→21:16)
[2021-12-11] MEDS: Phenylephrine 100 MG in 0.9 % Sodium Chloride 240 ML IVC SCH ×5 (01:00→12:10)
[2021-12-11] MEDS: MetroNIDAZOLE 500 MG/100 ML 500 MG/100 ML BAG IVPB SCH ×3 (04:06→19:57)
[2021-12-11] MEDS: Artificial Tears SOLN 15 ML BOTTLE BOTH EYES SCH ×6 (04:06→23:14)
[2021-12-11] MEDS: Dexmedetomidine HCl 400 MCG/100 ML MLS IVC SCH ×2 (04:07→23:33)
[2021-12-11 04:30] LABS: ABG Base Excess -10 mEq/L (-2 to 3); ABG HCO3 18 mEq/L (21-27); ABG Oxygen Saturation 89 % (95-98); ABG PCO2 47 mmHg (35-45); ABG PH 7.19 pH Units (7.32-7.45); ABG PO2 69 mmHg (85-104); ABG TCO2 20 mEq/L (20-26); Blood Gas VT 500 cc
[2021-12-11] MEDS: D5% in 0.9% NACL 1,000 ML IVC SCH ×2 (05:15→08:27)
[2021-12-11 05:39] LABS: Calcium 8.9 mg/dL (8.6-10.3); Potassium 4.4 mEq/L (3.5-5.1)
[2021-12-11 05:52] LABS: Hematocrit 42.6 % (37.5-50.1); Hemoglobin 14.4 g/dL (12.9-16.9); Immature Granulocytes % 2.9 % (0-4); Lymphocytes % 4.5 %; Mean Corpuscular HGB Conc 33.8 g/dL (31.6-35.5); Mean Corpuscular Hemoglobin 29.8 pg (28.0-33.3); Mean Platelet Volume 11.5 fL (9.4-12.4); Monocytes # 1.5 K/mcL (0.0-1.3); Monocytes % 6.3 %; Neutrophils # 19.9 K/mcL (1.6-8.9); Platelet Count 160 K/mcL (140-400); Red Blood Count 4.84 M/mcL (4.19-5.50); Red Cell Distribution Width 13.3 % (11.5-14.5); Segmented Neutrophils % 86.3 %; White Blood Count 23.1 K/mcL (4.3-11.1)
[2021-12-11 06:31] LABS: Platelet Estimate Normal (Normal)
[2021-12-11] MEDS: Insulin LISPRO 300 UNITS/3 ML VIAL SUBQ SCH ×3 (06:43→11:48)
[2021-12-11] MEDS: FentaNYL (PF) 1,000 MCG/100 ML IV.SOLN IVC SCH ×4 (06:44→23:14)
[2021-12-11] MEDS: Midazolam HCl 50 MG/50 ML IV.SOLN IVC SCH (08:32)
[2021-12-11] MEDS: *HR* Heparin 5,000 UNIT/ML VIAL SQ SCH ×3 (08:42→23:13)
[2021-12-11] MEDS: Chlorhexidine Rinse 15 ML MOUTHWASH MM SCH ×2 (08:42→19:57)
[2021-12-11] MEDS ORDERED: Insulin DETEMIR 100 UNIT/ML X5UNITS SUBQ SCH (09:00)
[2021-12-11] MEDS ORDERED: Furosemide 40 MG/4 ML VIAL IVP ONE (09:53)
[2021-12-11] MEDS ORDERED: Magnesium Sulfate 1 GM/102 ML PIGGYBACK IVPB ONE (10:17)
[2021-12-11 10:43] LABS: Magnesium 1.6 mg/dL (1.6-2.6)
[2021-12-11] MEDS: Sodium Bicarbonate 150 MEQ in D5% in Water 1,000 ML IVC SCH ×2 (10:44→23:14)
[2021-12-11] MEDS: Amiodarone Premix 360 MG/200 ML BAG IVC SCH ×2 (11:46→23:13)
[2021-12-11] MEDS: Cefepime HCl 1,000 MG in 0.9 % Sodium Chloride 10 ML IVP SCH ×2 (11:47→23:12)
[2021-12-11] MEDS: Phenylephrine 100 MG in 0.9 % Sodium Chloride 250 ML IVC SCH ×4 (11:48→23:15)
[2021-12-11] MEDS ORDERED: *HR* Dextrose 50 % in Water (Syg) 50 ML SYRINGE IVP PRN (13:53)
[2021-12-12] MEDS ORDERED: Ringers Solution, Lactated 500 ML IVC ONE (01:23)
[2021-12-12] MEDS: Insulin DETEMIR 100 UNIT/ML X5UNITS SUBQ SCH ×3 (01:33→20:40)
[2021-12-12] MEDS: Pantoprazole 40 MG in 0.9 % Sodium Chloride Mini Bag 100 ML IVC SCH ×2 (02:05→07:38)
[2021-12-12] MEDS: Phenylephrine 100 MG in 0.9 % Sodium Chloride 250 ML IVC SCH ×4 (02:54→20:31)
[2021-12-12] MEDS: Artificial Tears SOLN 15 ML BOTTLE BOTH EYES SCH ×5 (02:55→20:33)
[2021-12-12 03:53] LABS: Hematocrit 38.4 % (37.5-50.1); Hemoglobin 13.6 g/dL (12.9-16.9); Immature Platelets 5.5 % (1.1-6.1); Mean Corpuscular HGB Conc 35.4 g/dL (31.6-35.5); Mean Corpuscular Hemoglobin 30.2 pg (28.0-33.3); Mean Corpuscular Volume 85.1 fL (83.0-100.0); Mean Platelet Volume 11.7 fL (9.4-12.4); Platelet Count 127 K/mcL (140-400); Red Blood Count 4.51 M/mcL (4.19-5.50); Red Cell Distribution Width 13.3 % (11.5-14.5); White Blood Count 28.5 K/mcL (4.3-11.1)
[2021-12-12 04:18] LABS: Albumin 2.3 g/dL (3.5-5.7); Bilirubin,Total 0.5 mg/dL (0.3-1.0); Calcium 8.1 mg/dL (8.6-10.3); Globulin 2.3 g/dL (2.4-3.5); Magnesium 1.4 mg/dL (1.6-2.6); Phosphorous 3.2 mg/dL (2.7-4.5); Potassium 3.5 mEq/L (3.5-5.1); Total Protein 4.6 g/dL (6.4-8.9)
[2021-12-12 04:29] LABS: Platelet Estimate Normal (Normal)
[2021-12-12 04:30] LABS: Lymphocytes # 1.7 K/mcL (0.6-4.6); Monocytes # 2.3 K/mcL (0.0-1.3); Neutrophils # 24.5 K/mcL (1.6-8.9)
[2021-12-12 04:31] LABS: Reactive Lymphocytes Present (Not Present)
[2021-12-12] MEDS ORDERED: Potassium Phosphate 44 MEQ in 0.9 % Sodium Chloride 250 ML IVPB ONE (04:33)
[2021-12-12] MEDS: MetroNIDAZOLE 500 MG/100 ML 500 MG/100 ML BAG IVPB SCH ×3 (04:38→20:32)
[2021-12-12 04:39] LABS: ABG Base Excess -2 mEq/L (-2 to 3); ABG HCO3 22 mEq/L (21-27); ABG Oxygen Saturation 95 % (95-98); ABG PCO2 36 mmHg (35-45); ABG PH 7.39 pH Units (7.32-7.45); ABG PO2 75 mmHg (85-104); ABG TCO2 23 mEq/L (20-26); Blood Gas VT 500 cc
[2021-12-12] MEDS: FentaNYL (PF) 1,000 MCG/100 ML IV.SOLN IVC SCH ×4 (06:04→22:55)
[2021-12-12] MEDS: Midazolam HCl 50 MG/50 ML IV.SOLN IVC SCH (07:05)
[2021-12-12] MEDS: Chlorhexidine Rinse 15 ML MOUTHWASH MM SCH ×2 (07:39→20:31)
[2021-12-12] MEDS: *HR* Heparin 5,000 UNIT/ML VIAL SQ SCH ×3 (07:39→23:45)
[2021-12-12] MEDS ORDERED: D5% in Water 1,000 ML IVC PRN (07:40)
[2021-12-12] MEDS ORDERED: Dextrose Gel 15 GM/37.5 ML TUBE PO PRN (07:40)
[2021-12-12] MEDS: Insulin LISPRO 300 UNITS/3 ML VIAL SUBQ SCH ×4 (08:09→20:32)
[2021-12-12] MEDS: Sodium Bicarbonate 150 MEQ in D5% in Water 1,000 ML IVC SCH ×2 (08:10→17:52)
[2021-12-12] MEDS ORDERED: Albuterol 2.5 MG/3 ML NEBULIZER IH PRN (09:43)
[2021-12-12] MEDS: Ipratropium/Albuterol Neb 3 ML IH SCH ×3 (10:51→22:00)
[2021-12-12] MEDS: Cefepime HCl 1,000 MG in 0.9 % Sodium Chloride 10 ML IVP SCH ×2 (11:17→23:44)
[2021-12-12] MEDS: Amiodarone Premix 360 MG/200 ML BAG IVC SCH ×2 (11:18→22:55)
[2021-12-12 12:02] LABS: Hematocrit 37.2 % (37.5-50.1); Hemoglobin 13.3 g/dL (12.9-16.9); Mean Corpuscular HGB Conc 35.8 g/dL (31.6-35.5); Mean Corpuscular Hemoglobin 30.3 pg (28.0-33.3); Mean Corpuscular Volume 84.7 fL (83.0-100.0); Mean Platelet Volume 12.2 fL (9.4-12.4); Platelet Count 115 K/mcL (140-400); Red Blood Count 4.39 M/mcL (4.19-5.50); Red Cell Distribution Width 13.5 % (11.5-14.5)
[2021-12-12 12:41] LABS: Albumin 2.3 g/dL (3.5-5.7); Bilirubin,Total 0.6 mg/dL (0.3-1.0); Calcium 8.2 mg/dL (8.6-10.3); Globulin 2.4 g/dL (2.4-3.5); Magnesium 2.1 mg/dL (1.6-2.6); Phosphorous 4.1 mg/dL (2.7-4.5); Potassium 3.8 mEq/L (3.5-5.1); Total Protein 4.7 g/dL (6.4-8.9)
[2021-12-12 13:07] LABS: Dohle Bodies Present (Not Present); Lymphocytes # 1.7 K/mcL (0.6-4.6); Monocytes # 2.2 K/mcL (0.0-1.3); Neutrophils # 24.1 K/mcL (1.6-8.9); Platelet Estimate Slight Decrease (Normal)
[2021-12-12] MEDS ORDERED: Potassium Chloride Elixir 20 MEQ/15 ML UDC GTUBE ONE (14:02)
[2021-12-12] MEDS: Pantoprazole 40 MG VIAL IVP SCH (17:06)
[2021-12-13] MEDS: Artificial Tears SOLN 15 ML BOTTLE BOTH EYES SCH ×6 (01:12→20:29)
[2021-12-13] MEDS: Insulin LISPRO 300 UNITS/3 ML VIAL SUBQ SCH ×6 (01:13→20:28)
[2021-12-13] MEDS: Phenylephrine 100 MG in 0.9 % Sodium Chloride 250 ML IVC SCH ×3 (03:35→20:31)
[2021-12-13] MEDS: FentaNYL (PF) 1,000 MCG/100 ML IV.SOLN IVC SCH ×3 (04:00→19:45)
[2021-12-13 04:04] LABS: VBG Ionized Calcium 1.08 mmol/L (1.15-1.35)
[2021-12-13] MEDS: Ipratropium/Albuterol Neb 3 ML IH SCH ×4 (04:19→22:59)
[2021-12-13] MEDS: MetroNIDAZOLE 500 MG/100 ML 500 MG/100 ML BAG IVPB SCH ×3 (04:46→20:28)
[2021-12-13 04:49] LABS: Basophils % 0.4 %; Hemoglobin 12.8 g/dL (12.9-16.9); Lymphocytes % 2.6 %; Mean Corpuscular Hemoglobin 29.8 pg (28.0-33.3); Mean Platelet Volume 12.3 fL (9.4-12.4); Red Blood Count 4.29 M/mcL (4.19-5.50)
[2021-12-13 04:51] LABS: Basophils # 0.1 K/mcL (0.0-0.2); Eosinophils # 0.1 K/mcL (0.0-0.6); Eosinophils % 0.5 %; Hematocrit 36.6 % (37.5-50.1); Immature Granulocytes % 5.2 % (0-4); Lymphocytes # 0.7 K/mcL (0.6-4.6); Mean Corpuscular Volume 85.3 fL (83.0-100.0); Monocytes # 2.1 K/mcL (0.0-1.3); Monocytes % 7.7 %; Neutrophils # 22.3 K/mcL (1.6-8.9); Platelet Count 112 K/mcL (140-400); Red Cell Distribution Width 13.9 % (11.5-14.5); Segmented Neutrophils % 83.6 %; White Blood Count 26.7 K/mcL (4.3-11.1)
[2021-12-13 04:52] LABS: ABG Base Excess 0 mEq/L (-2 to 3); ABG HCO3 27 mEq/L (21-27); ABG Oxygen Saturation 93 % (95-98); ABG PCO2 53 mmHg (35-45); ABG PH 7.32 pH Units (7.32-7.45); ABG PO2 74 mmHg (85-104); ABG TCO2 28 mEq/L (20-26); Blood Gas Modality AF; Blood Gas VT 500 cc
[2021-12-13 05:03] LABS: Albumin 2.3 g/dL (3.5-5.7); Albumin/Globulin Ratio 0.9 (1.1-2.2); Bilirubin,Direct 0.3 mg/dL (0.0-0.2); Bilirubin,Indirect 0.3 mg/dL (0.0-1.0); Bilirubin,Total 0.6 mg/dL (0.3-1.0); Calcium 7.7 mg/dL (8.6-10.3); Globulin 2.6 g/dL (2.4-3.5); Phosphorous 4.4 mg/dL (2.7-4.5); Potassium 3.4 mEq/L (3.5-5.1); Total Protein 4.9 g/dL (6.4-8.9)
[2021-12-13] MEDS: Pantoprazole 40 MG VIAL IVP SCH ×2 (05:25→16:23)
[2021-12-13 05:59] LABS: Platelet Estimate Slight Decrease (Normal)
[2021-12-13] MEDS: Midazolam HCl 50 MG/50 ML IV.SOLN IVC SCH (06:30)
[2021-12-13] MEDS: Dexmedetomidine HCl 400 MCG/100 ML MLS IVC SCH ×2 (08:04→18:23)
[2021-12-13] MEDS: *HR* Heparin 5,000 UNIT/ML VIAL SQ SCH ×2 (08:09→16:23)
[2021-12-13] MEDS: Chlorhexidine Rinse 15 ML MOUTHWASH MM SCH ×2 (08:13→20:27)
[2021-12-13] MEDS: Insulin DETEMIR 100 UNIT/ML X5UNITS SUBQ SCH ×2 (08:17→20:27)
[2021-12-13] MEDS: Amiodarone Premix 360 MG/200 ML BAG IVC SCH ×2 (10:39→22:52)
[2021-12-13] MEDS ORDERED: Lidocaine -MPF 1% 5 ML AMPUL INFILT ONE (12:00)
[2021-12-13] MEDS: Cefepime HCl 1,000 MG in 0.9 % Sodium Chloride 10 ML IVP SCH (12:27)
[2021-12-13] MEDS: Sodium Bicarbonate 150 MEQ in D5% in Water 1,000 ML IVC SCH ×2 (12:34→15:39)
[2021-12-13] MEDS ORDERED: Potassium Chloride Elixir 20 MEQ/15 ML UDC PO ONE (15:32)
[2021-12-13 22:12] LABS: Calcium 7.4 mg/dL (8.6-10.3); Magnesium 1.8 mg/dL (1.6-2.6); Potassium 3.1 mEq/L (3.5-5.1)
[2021-12-14] MEDS: *HR* Heparin 5,000 UNIT/ML VIAL SQ SCH ×2 (00:08→08:06)
[2021-12-14] MEDS: Artificial Tears SOLN 15 ML BOTTLE BOTH EYES SCH ×6 (00:08→20:32)
[2021-12-14] MEDS: Cefepime HCl 1,000 MG in 0.9 % Sodium Chloride 10 ML IVP SCH ×2 (00:09→11:47)
[2021-12-14] MEDS: Insulin LISPRO 300 UNITS/3 ML VIAL SUBQ SCH ×6 (00:09→20:31)
[2021-12-14] MEDS ORDERED: 0.9 % Sodium Chloride 1,000 ML IVC SCH (00:45)
[2021-12-14] MEDS: Ipratropium/Albuterol Neb 3 ML IH SCH ×4 (03:54→22:52)
[2021-12-14 04:54] LABS: ABG Base Excess 1 mEq/L (-2 to 3); ABG HCO3 26 mEq/L (21-27); ABG Oxygen Saturation 96 % (95-98); ABG PCO2 44 mmHg (35-45); ABG PH 7.39 pH Units (7.32-7.45); ABG PO2 84 mmHg (85-104); ABG TCO2 28 mEq/L (20-26); Blood Gas Modality ASSIST CONTROL; Blood Gas VT 500 cc
[2021-12-14 04:59] LABS: VBG Ionized Calcium 1.01 mmol/L (1.15-1.35)
[2021-12-14 05:12] LABS: Basophils # 0.1 K/mcL (0.0-0.2); Basophils % 0.3 %; Eosinophils # 0.1 K/mcL (0.0-0.6); Eosinophils % 0.8 %; Hematocrit 34.9 % (37.5-50.1); Hemoglobin 12.3 g/dL (12.9-16.9); Immature Granulocytes % 1.8 % (0-4); Lymphocytes # 0.8 K/mcL (0.6-4.6); Lymphocytes % 4.5 %; Mean Corpuscular HGB Conc 35.2 g/dL (31.6-35.5); Mean Corpuscular Hemoglobin 30.1 pg (28.0-33.3); Mean Corpuscular Volume 85.5 fL (83.0-100.0); Monocytes # 1.4 K/mcL (0.0-1.3); Monocytes % 8.1 %; Neutrophils # 14.9 K/mcL (1.6-8.9); Platelet Count 101 K/mcL (140-400); Red Blood Count 4.08 M/mcL (4.19-5.50); Red Cell Distribution Width 14.4 % (11.5-14.5); Segmented Neutrophils % 84.5 %; White Blood Count 17.6 K/mcL (4.3-11.1)
[2021-12-14] MEDS: FentaNYL (PF) 1,000 MCG/100 ML IV.SOLN IVC SCH ×2 (05:18→16:41)
[2021-12-14] MEDS: MetroNIDAZOLE 500 MG/100 ML 500 MG/100 ML BAG IVPB SCH ×3 (05:18→20:31)
[2021-12-14] MEDS: Pantoprazole 40 MG VIAL IVP SCH ×2 (05:18→17:33)
[2021-12-14 05:30] LABS: Albumin 2.1 g/dL (3.5-5.7); Albumin/Globulin Ratio 0.9 (1.1-2.2); Bilirubin,Direct 0.5 mg/dL (0.0-0.2); Bilirubin,Indirect 0.5 mg/dL (0.0-1.0); Calcium 7.2 mg/dL (8.6-10.3); Globulin 2.4 g/dL (2.4-3.5); Phosphorous 3.5 mg/dL (2.7-4.5); Potassium 3.1 mEq/L (3.5-5.1); Total Protein 4.5 g/dL (6.4-8.9)
[2021-12-14] MEDS: Calcium Gluconate 1gm/50mL 1 GM/50 ML BAG IVPB SCH ×2 (06:28→07:42)
[2021-12-14] MEDS: Phenylephrine 100 MG in 0.9 % Sodium Chloride 250 ML IVC SCH ×2 (07:39→22:39)
[2021-12-14] MEDS: Chlorhexidine Rinse 15 ML MOUTHWASH MM SCH ×2 (08:04→20:31)
[2021-12-14] MEDS: Insulin DETEMIR 100 UNIT/ML X5UNITS SUBQ SCH ×2 (08:06→20:31)
[2021-12-14] MEDS ORDERED: *HR* Heparin 5,000 UNIT/ML VIAL IVP PRN (10:42)
[2021-12-14] MEDS ORDERED: *HR* Heparin 5,000 UNIT/ML VIAL IVP ONE (10:42)
[2021-12-14 11:35] LABS: Hemoglobin 12.3 g/dL (12.9-16.9); Mean Corpuscular HGB Conc 35.1 g/dL (31.6-35.5); Mean Corpuscular Hemoglobin 30.2 pg (28.0-33.3); Mean Platelet Volume 11.6 fL (9.4-12.4); Red Blood Count 4.07 M/mcL (4.19-5.50); Red Cell Distribution Width 14.4 % (11.5-14.5); White Blood Count 16.8 K/mcL (4.3-11.1)
[2021-12-14 11:37] LABS: Platelet Count 96 K/mcL (140-400)
[2021-12-14 11:41] LABS: INR 1.7; Prothrombin Time 19.2 Seconds (9.4-12.1)
[2021-12-14 11:42] LABS: Activated Partial Thrombo Time 32.2 Seconds (26.0-36.0)
[2021-12-14 11:43] LABS: Heparin anti-factor XA UFH < 0.04 IU/mL (0.30-0.70)
[2021-12-14] MEDS: Midazolam HCl 50 MG/50 ML IV.SOLN IVC SCH (11:50)
[2021-12-14] MEDS: Dexmedetomidine HCl 400 MCG/100 ML MLS IVC SCH (11:50)
[2021-12-14] MEDS: Sodium Bicarbonate 150 MEQ in D5% in Water 1,000 ML IVC SCH (11:51)
[2021-12-14] MEDS: Heparin 25,000UNIT/250ML 1/2NS 25,000 UNIT/250 ML IV.SOLN IVC SCH (12:21)
[2021-12-14] MEDS: *HR* Amiodarone 200 MG TABLET PO SCH (20:31)
[2021-12-14] MEDS: Norepinephrine 32 MG/250 ML IV.SOLN IVC SCH (20:36)
[2021-12-15] MEDS: Cefepime HCl 1,000 MG in 0.9 % Sodium Chloride 10 ML IVP SCH ×2 (00:08→11:29)
[2021-12-15] MEDS: Insulin LISPRO 300 UNITS/3 ML VIAL SUBQ SCH ×6 (00:08→20:06)
[2021-12-15] MEDS: Artificial Tears SOLN 15 ML BOTTLE BOTH EYES SCH ×6 (00:08→20:05)
[2021-12-15] MEDS: FentaNYL (PF) 1,000 MCG/100 ML IV.SOLN IVC SCH ×2 (01:51→14:26)
[2021-12-15] MEDS: Heparin 25,000UNIT/250ML 1/2NS 25,000 UNIT/250 ML IV.SOLN IVC SCH ×2 (03:00→21:08)
[2021-12-15] MEDS: Ipratropium/Albuterol Neb 3 ML IH SCH ×4 (03:44→22:30)
[2021-12-15 04:20] LABS: Basophils # 0.1 K/mcL (0.0-0.2); Basophils % 0.3 %; Eosinophils # 0.1 K/mcL (0.0-0.6); Eosinophils % 0.7 %; Hematocrit 31.3 % (37.5-50.1); Hemoglobin 11.1 g/dL (12.9-16.9); Immature Granulocytes % 2.2 % (0-4); Lymphocytes % 6.4 %; Mean Corpuscular HGB Conc 35.5 g/dL (31.6-35.5); Mean Corpuscular Hemoglobin 30.5 pg (28.0-33.3); Mean Platelet Volume 11.5 fL (9.4-12.4); Neutrophils # 13.3 K/mcL (1.6-8.9); Platelet Count 101 K/mcL (140-400); Red Blood Count 3.64 M/mcL (4.19-5.50); Red Cell Distribution Width 14.6 % (11.5-14.5); Segmented Neutrophils % 84.4 %; White Blood Count 15.8 K/mcL (4.3-11.1)
[2021-12-15 04:22] LABS: Albumin/Globulin Ratio 0.9 (1.1-2.2); Bilirubin,Direct 0.7 mg/dL (0.0-0.2); Bilirubin,Indirect 0.6 mg/dL (0.0-1.0); Bilirubin,Total 1.3 mg/dL (0.3-1.0); Calcium 7.1 mg/dL (8.6-10.3); Globulin 2.3 g/dL (2.4-3.5); Phosphorous 3.2 mg/dL (2.7-4.5); Potassium 3.3 mEq/L (3.5-5.1); Total Protein 4.3 g/dL (6.4-8.9)
[2021-12-15] MEDS ORDERED: Potassium Chloride Elixir 20 MEQ/15 ML UDC PO ONE (04:39)
[2021-12-15 04:41] LABS: ABG Base Excess 1 mEq/L (-2 to 3); ABG HCO3 26 mEq/L (21-27); ABG Oxygen Saturation 91 % (95-98); ABG PCO2 43 mmHg (35-45); ABG PH 7.39 pH Units (7.32-7.45); ABG PO2 61 mmHg (85-104); ABG TCO2 27 mEq/L (20-26); Blood Gas Modality ASSIST CONTROL; Blood Gas VT 500 cc
[2021-12-15] MEDS: Pantoprazole 40 MG VIAL IVP SCH ×2 (05:47→18:42)
[2021-12-15] MEDS: MetroNIDAZOLE 500 MG/100 ML 500 MG/100 ML BAG IVPB SCH ×3 (05:47→20:05)
[2021-12-15] MEDS: Calcium Gluconate 1gm/50mL 1 GM/50 ML BAG IVPB SCH ×2 (05:47→06:15)
[2021-12-15] MEDS: Dexmedetomidine HCl 400 MCG/100 ML MLS IVC SCH ×2 (05:47→17:59)
[2021-12-15] MEDS ORDERED: Furosemide 40 MG/4 ML VIAL IVP ONE (09:01)
[2021-12-15] MEDS: Chlorhexidine Rinse 15 ML MOUTHWASH MM SCH ×2 (09:02→20:05)
[2021-12-15] MEDS: Insulin DETEMIR 100 UNIT/ML X5UNITS SUBQ SCH ×2 (09:02→20:05)
[2021-12-15] MEDS: *HR* Amiodarone 200 MG TABLET PO SCH ×2 (09:03→20:06)
[2021-12-15 14:39] LABS: Calcium 7.7 mg/dL (8.6-10.3); Potassium 3.6 mEq/L (3.5-5.1)
[2021-12-15] MEDS: *HR* Heparin 5,000 UNIT/ML VIAL IVP PRN (15:06)
[2021-12-16] MEDS: Cefepime HCl 1,000 MG in 0.9 % Sodium Chloride 10 ML IVP SCH ×2 (00:11→12:10)
[2021-12-16] MEDS: Artificial Tears SOLN 15 ML BOTTLE BOTH EYES SCH ×6 (00:11→20:59)
[2021-12-16] MEDS: Insulin LISPRO 300 UNITS/3 ML VIAL SUBQ SCH ×6 (00:12→21:00)
[2021-12-16] MEDS: Dexmedetomidine HCl 400 MCG/100 ML MLS IVC SCH ×4 (01:19→21:43)
[2021-12-16] MEDS: Phenylephrine 100 MG in 0.9 % Sodium Chloride 250 ML IVC SCH (01:20)
[2021-12-16 03:29] LABS: Basophils % 0.2 %; Eosinophils # 0.1 K/mcL (0.0-0.6); Eosinophils % 0.5 %; Hematocrit 29.8 % (37.5-50.1); Hemoglobin 10.3 g/dL (12.9-16.9); Immature Granulocytes % 2.5 % (0-4); Lymphocytes # 1.3 K/mcL (0.6-4.6); Mean Corpuscular HGB Conc 34.6 g/dL (31.6-35.5); Mean Corpuscular Hemoglobin 29.9 pg (28.0-33.3); Mean Corpuscular Volume 86.4 fL (83.0-100.0); Mean Platelet Volume 11.6 fL (9.4-12.4); Monocytes # 0.7 K/mcL (0.0-1.3); Monocytes % 5.6 %; Neutrophils # 10.4 K/mcL (1.6-8.9); Platelet Count 123 K/mcL (140-400); Red Blood Count 3.45 M/mcL (4.19-5.50); Red Cell Distribution Width 14.9 % (11.5-14.5); Segmented Neutrophils % 81.2 %; White Blood Count 12.8 K/mcL (4.3-11.1)
[2021-12-16 03:45] LABS: Albumin/Globulin Ratio 0.8 (1.1-2.2); Bilirubin,Total 0.9 mg/dL (0.3-1.0); Calcium 7.4 mg/dL (8.6-10.3); Globulin 2.4 g/dL (2.4-3.5); Phosphorous 2.2 mg/dL (2.7-4.5); Potassium 3.6 mEq/L (3.5-5.1); Total Protein 4.4 g/dL (6.4-8.9)
[2021-12-16] MEDS: Ipratropium/Albuterol Neb 3 ML IH SCH ×4 (04:11→22:11)
[2021-12-16 05:02] LABS: ABG Base Excess 2 mEq/L (-2 to 3); ABG HCO3 26 mEq/L (21-27); ABG Oxygen Saturation 92 % (95-98); ABG PCO2 39 mmHg (35-45); ABG PH 7.43 pH Units (7.32-7.45); ABG PO2 62 mmHg (85-104); ABG TCO2 27 mEq/L (20-26); Blood Gas VT 500 cc
[2021-12-16] MEDS: MetroNIDAZOLE 500 MG/100 ML 500 MG/100 ML BAG IVPB SCH ×3 (05:05→21:10)
[2021-12-16] MEDS: Pantoprazole 40 MG VIAL IVP SCH ×2 (05:05→17:39)
[2021-12-16] MEDS ORDERED: Furosemide 40 MG/4 ML VIAL IVP ONE (05:15)
[2021-12-16] MEDS: *HR* Amiodarone 200 MG TABLET PO SCH ×2 (08:52→21:10)
[2021-12-16] MEDS: Chlorhexidine Rinse 15 ML MOUTHWASH MM SCH ×2 (08:52→21:09)
[2021-12-16] MEDS: Insulin DETEMIR 100 UNIT/ML X5UNITS SUBQ SCH ×2 (08:57→21:10)
[2021-12-16] MEDS ORDERED: Insulin DETEMIR 100 UNIT/ML X5UNITS SUBQ ONE (11:21)
[2021-12-16] MEDS: Heparin 25,000UNIT/250ML 1/2NS 25,000 UNIT/250 ML IV.SOLN IVC SCH (14:45)
[2021-12-16 16:41] LABS: Amorphous Sediment,Urine Few per hpf (None-Few); Bilirubin,Urine Negative (Negative); Blood,Urine Large (Negative); Clarity,Urine Ex.Turbid (Clear); Color,Urine Yellow (Yellow); Glucose,Urine (UA) Normal (Normal); Ketones,Urine Negative (Negative); Leukocyte Esterase,Urine Moderate (Negative); Mucus,Urine Few per lpf (None-Few); Nitrite,Urine Negative (Negative); PH,Urine 5.5 pH Units (5.0-8.0); Protein,Urine 50 mg/dL (Neg-Trace); RBC,Urine TNTC per hpf (0-3); Specific Gravity,Urine 1.014 (1.010-1.025); Urobilinogen,Urine Normal (Normal); WBC,Urine 15-30 per hpf (0-3)
[2021-12-16] MEDS ORDERED: Furosemide 240 MG in 0.9 % Sodium Chloride 96 ML IVC SCH (19:00)
[2021-12-17] MEDS: Cefepime HCl 1,000 MG in 0.9 % Sodium Chloride 10 ML IVP SCH ×2 (00:32→10:49)
[2021-12-17] MEDS: Albumin 25% 25gram/100mL 25 GM/100 ML IV.SOLN IVPB SCH ×3 (00:33→14:02)
[2021-12-17] MEDS: Insulin LISPRO 300 UNITS/3 ML VIAL SUBQ SCH ×6 (00:34→19:56)
[2021-12-17] MEDS: Artificial Tears SOLN 15 ML BOTTLE BOTH EYES SCH ×6 (00:34→19:55)
[2021-12-17] MEDS: Dexmedetomidine HCl 400 MCG/100 ML MLS IVC SCH ×8 (01:24→23:38)
[2021-12-17] MEDS: QUEtiapine Fumarate 25 MG TABLET PO SCH ×5 (03:09→23:33)
[2021-12-17] MEDS: FentaNYL (PF) 1,000 MCG/100 ML IV.SOLN IVC SCH ×2 (03:10→14:01)
[2021-12-17] MEDS: Ipratropium/Albuterol Neb 3 ML IH SCH ×4 (03:37→22:05)
[2021-12-17 03:49] LABS: ABG Base Excess 3 mEq/L (-2 to 3); ABG HCO3 28 mEq/L (21-27); ABG Oxygen Saturation 93 % (95-98); ABG PCO2 42 mmHg (35-45); ABG PH 7.42 pH Units (7.32-7.45); ABG PO2 66 mmHg (85-104); ABG TCO2 29 mEq/L (20-26); Blood Gas VT 500 cc
[2021-12-17] MEDS: Heparin 25,000UNIT/250ML 1/2NS 25,000 UNIT/250 ML IV.SOLN IVC SCH ×2 (03:53→23:23)
[2021-12-17 04:29] LABS: Basophils % 0.3 %; Eosinophils % 0.3 %; Hematocrit 27.1 % (37.5-50.1); Hemoglobin 9.2 g/dL (12.9-16.9); Lymphocytes # 1.1 K/mcL (0.6-4.6); Lymphocytes % 10.4 %; Mean Corpuscular HGB Conc 33.9 g/dL (31.6-35.5); Mean Corpuscular Volume 88.3 fL (83.0-100.0); Mean Platelet Volume 11.2 fL (9.4-12.4); Monocytes # 0.7 K/mcL (0.0-1.3); Monocytes % 6.7 %; Neutrophils # 8.5 K/mcL (1.6-8.9); Platelet Count 134 K/mcL (140-400); Red Blood Count 3.07 M/mcL (4.19-5.50); Red Cell Distribution Width 14.8 % (11.5-14.5); Segmented Neutrophils % 79.3 %; White Blood Count 10.8 K/mcL (4.3-11.1)
[2021-12-17 04:29] LABS: VBG Ionized Calcium 1.09 mmol/L (1.15-1.35)
[2021-12-17] MEDS: Pantoprazole 40 MG VIAL IVP SCH ×2 (04:52→17:43)
[2021-12-17 05:09] LABS: Albumin 2.4 g/dL (3.5-5.7); Bilirubin,Total 0.8 mg/dL (0.3-1.0); Calcium 7.8 mg/dL (8.6-10.3); Globulin 2.5 g/dL (2.4-3.5); Phosphorous 2.3 mg/dL (2.7-4.5); Potassium 3.7 mEq/L (3.5-5.1); Total Protein 4.9 g/dL (6.4-8.9)
[2021-12-17] MEDS: *HR* Heparin 5,000 UNIT/ML VIAL IVP PRN (07:33)
[2021-12-17] MEDS: *HR* Amiodarone 200 MG TABLET PO SCH ×2 (07:33→19:56)
[2021-12-17] MEDS: Insulin DETEMIR 100 UNIT/ML X5UNITS SUBQ SCH ×2 (07:33→19:56)
[2021-12-17] MEDS: Chlorhexidine Rinse 15 ML MOUTHWASH MM SCH ×2 (07:33→19:56)
[2021-12-17] MEDS ORDERED: Insulin DETEMIR 100 UNIT/ML X5UNITS SUBQ ONE (11:16)
[2021-12-17] MEDS ORDERED: Furosemide 240 MG in D5% in Water 96 ML IVC SCH (12:00)
[2021-12-17] MEDS: D5 IVC SCH (12:12)
[2021-12-17] MEDS: WATER IVC SCH (12:12)
[2021-12-17] MEDS: PHENYLEPHRINE IVC SCH (12:12)
[2021-12-17] MEDS: Norepinephrine 4 MG in D5% in Water 250 ML IVC SCH (12:13)
[2021-12-17] MEDS: Cefepime HCl 1,000 MG in Water for inj. (sterile) 10 ML IVP SCH (12:13)
[2021-12-17] MEDS: Potassium Chloride Elixir 20 MEQ/15 ML UDC GTUBE SCH ×2 (12:19→19:56)
[2021-12-17] MEDS ORDERED: QUEtiapine Fumarate 25 MG TABLET PO ONE (20:46)
[2021-12-18] MEDS: FentaNYL (PF) 1,000 MCG/100 ML IV.SOLN IVC SCH ×6 (00:35→21:54)
[2021-12-18] MEDS: Norepinephrine 4 MG in D5% in Water 250 ML IVC SCH ×2 (00:36→15:09)
[2021-12-18] MEDS: Albumin 25% 25gram/100mL 25 GM/100 ML IV.SOLN IVPB SCH ×2 (00:40→07:31)
[2021-12-18] MEDS: Artificial Tears SOLN 15 ML BOTTLE BOTH EYES SCH ×6 (00:41→19:49)
[2021-12-18] MEDS: Insulin LISPRO 300 UNITS/3 ML VIAL SUBQ SCH ×6 (00:41→19:50)
[2021-12-18] MEDS: Cefepime HCl 1,000 MG in Water for inj. (sterile) 10 ML IVP SCH ×2 (00:41→11:41)
[2021-12-18] MEDS: Dexmedetomidine HCl 400 MCG/100 ML MLS IVC SCH ×9 (02:10→21:49)
[2021-12-18 04:11] LABS: Basophils % 0.2 %; Eosinophils # 0.1 K/mcL (0.0-0.6); Eosinophils % 0.8 %; Hematocrit 23.3 % (37.5-50.1); Hemoglobin 7.9 g/dL (12.9-16.9); Lymphocytes # 1.5 K/mcL (0.6-4.6); Lymphocytes % 14.5 %; Mean Corpuscular HGB Conc 33.9 g/dL (31.6-35.5); Mean Corpuscular Hemoglobin 30.7 pg (28.0-33.3); Mean Corpuscular Volume 90.7 fL (83.0-100.0); Monocytes # 0.6 K/mcL (0.0-1.3); Neutrophils # 8.1 K/mcL (1.6-8.9); Platelet Count 133 K/mcL (140-400); Red Blood Count 2.57 M/mcL (4.19-5.50); Segmented Neutrophils % 76.5 %; White Blood Count 10.6 K/mcL (4.3-11.1)
[2021-12-18 04:12] LABS: VBG Ionized Calcium 1.07 mmol/L (1.15-1.35)
[2021-12-18] MEDS: Ipratropium/Albuterol Neb 3 ML IH SCH ×4 (04:34→21:09)
[2021-12-18 04:43] LABS: ABG Base Excess 9 mEq/L (-2 to 3); ABG HCO3 33 mEq/L (21-27); ABG Oxygen Saturation 97 % (95-98); ABG PCO2 45 mmHg (35-45); ABG PH 7.48 pH Units (7.32-7.45); ABG PO2 87 mmHg (85-104); ABG TCO2 35 mEq/L (20-26); Blood Gas VT 500 cc
[2021-12-18 04:48] LABS: Albumin 3.2 g/dL (3.5-5.7); Albumin/Globulin Ratio 1.4 (1.1-2.2); Bilirubin,Total 0.8 mg/dL (0.3-1.0); Calcium 8.3 mg/dL (8.6-10.3); Globulin 2.3 g/dL (2.4-3.5); Phosphorous 2.4 mg/dL (2.7-4.5); Potassium 3.8 mEq/L (3.5-5.1); Total Protein 5.5 g/dL (6.4-8.9)
[2021-12-18] MEDS: Pantoprazole 40 MG VIAL IVP SCH ×2 (04:50→16:15)
[2021-12-18] MEDS: QUEtiapine Fumarate 25 MG TABLET PO SCH ×4 (07:31→19:49)
[2021-12-18] MEDS: *HR* Amiodarone 200 MG TABLET PO SCH ×2 (07:31→19:50)
[2021-12-18] MEDS: Chlorhexidine Rinse 15 ML MOUTHWASH MM SCH ×2 (07:31→19:49)
[2021-12-18] MEDS: Potassium Chloride Elixir 20 MEQ/15 ML UDC GTUBE SCH (07:31)
[2021-12-18] MEDS: Insulin DETEMIR 100 UNIT/ML X5UNITS SUBQ SCH ×2 (07:33→19:52)
[2021-12-18] MEDS: Heparin 25,000UNIT/250ML 1/2NS 25,000 UNIT/250 ML IV.SOLN IVC SCH (15:08)
[2021-12-18 15:27] LABS: Calcium 7.8 mg/dL (8.6-10.3); Potassium 3.9 mEq/L (3.5-5.1)
[2021-12-18] MEDS: D5 IVC SCH (17:22)
[2021-12-18] MEDS: WATER IVC SCH (17:22)
[2021-12-18] MEDS: PHENYLEPHRINE IVC SCH (17:22)
[2021-12-18 23:01] LABS: Calcium 7.7 mg/dL (8.6-10.3); Potassium 4.2 mEq/L (3.5-5.1)
[2021-12-19] MEDS: Cefepime HCl 1,000 MG in Water for inj. (sterile) 10 ML IVP SCH ×2 (00:26→12:18)
[2021-12-19] MEDS: Artificial Tears SOLN 15 ML BOTTLE BOTH EYES SCH ×6 (00:26→21:06)
[2021-12-19] MEDS: Insulin LISPRO 300 UNITS/3 ML VIAL SUBQ SCH ×6 (00:26→21:05)
[2021-12-19] MEDS: Norepinephrine 4 MG in D5% in Water 250 ML IVC SCH ×2 (00:27→16:47)
[2021-12-19] MEDS: Heparin 25,000UNIT/250ML 1/2NS 25,000 UNIT/250 ML IV.SOLN IVC SCH ×2 (03:13→04:00)
[2021-12-19] MEDS: WATER IVC SCH (03:57)
[2021-12-19] MEDS: D5 IVC SCH (03:57)
[2021-12-19] MEDS: PHENYLEPHRINE IVC SCH (03:57)
[2021-12-19] MEDS: Dexmedetomidine HCl 400 MCG/100 ML MLS IVC SCH ×5 (03:57→21:03)
[2021-12-19] MEDS: Ipratropium/Albuterol Neb 3 ML IH SCH ×5 (03:59→20:22)
[2021-12-19] MEDS: Acetylcysteine 10% 2 ML INHSOL IH SCH ×5 (03:59→20:22)
[2021-12-19 04:08] LABS: ABG Base Excess 7 mEq/L (-2 to 3); ABG HCO3 31 mEq/L (21-27); ABG Oxygen Saturation 95 % (95-98); ABG PCO2 46 mmHg (35-45); ABG PH 7.44 pH Units (7.32-7.45); ABG PO2 76 mmHg (85-104); ABG TCO2 33 mEq/L (20-26); Blood Gas VT 500 cc
[2021-12-19 04:58] LABS: VBG Ionized Calcium 1.06 mmol/L (1.15-1.35)
[2021-12-19 05:08] LABS: Basophils % 0.1 %; Eosinophils # 0.1 K/mcL (0.0-0.6); Eosinophils % 0.9 %; Hematocrit 20.9 % (37.5-50.1); Hemoglobin 6.7 g/dL (12.9-16.9); Immature Granulocytes % 0.8 % (0-4); Lymphocytes # 0.9 K/mcL (0.6-4.6); Lymphocytes % 8.4 %; Mean Corpuscular HGB Conc 32.1 g/dL (31.6-35.5); Mean Corpuscular Hemoglobin 29.6 pg (28.0-33.3); Mean Corpuscular Volume 92.5 fL (83.0-100.0); Mean Platelet Volume 11.6 fL (9.4-12.4); Monocytes # 0.5 K/mcL (0.0-1.3); Monocytes % 4.6 %; Neutrophils # 9.4 K/mcL (1.6-8.9); Platelet Count 149 K/mcL (140-400); Red Blood Count 2.26 M/mcL (4.19-5.50); Red Cell Distribution Width 15.3 % (11.5-14.5); Segmented Neutrophils % 85.2 %
[2021-12-19 05:36] LABS: Albumin 2.8 g/dL (3.5-5.7); Albumin/Globulin Ratio 1.2 (1.1-2.2); Bilirubin,Total 0.5 mg/dL (0.3-1.0); Calcium 7.9 mg/dL (8.6-10.3); Globulin 2.4 g/dL (2.4-3.5); Phosphorous 3.2 mg/dL (2.7-4.5); Potassium 4.2 mEq/L (3.5-5.1); Total Protein 5.2 g/dL (6.4-8.9)
[2021-12-19] MEDS: *HR* OxyCODONE Immed Rel 5 MG TABLET PO SCH ×3 (06:39→17:35)
[2021-12-19] MEDS: Pantoprazole 40 MG VIAL IVP SCH (06:39)
[2021-12-19] MEDS: FentaNYL (PF) 1,000 MCG/100 ML IV.SOLN IVC SCH ×2 (08:07→16:44)
[2021-12-19] MEDS: Chlorhexidine Rinse 15 ML MOUTHWASH MM SCH ×2 (08:18→21:04)
[2021-12-19] MEDS: QUEtiapine Fumarate 25 MG TABLET PO SCH ×2 (08:18→21:04)
[2021-12-19] MEDS: *HR* Amiodarone 200 MG TABLET PO SCH ×2 (09:32→21:08)
[2021-12-19] MEDS: Insulin DETEMIR 100 UNIT/ML X5UNITS SUBQ SCH ×2 (09:32→21:08)
[2021-12-19] MEDS ORDERED: 0.9 % Sodium Chloride 250 ML ONE (09:47)
[2021-12-19] MEDS ORDERED: Octreotide 50 MCG/ML INJ IVP ONE (12:32)
[2021-12-19] MEDS: Pantoprazole 40 MG in 0.9 % Sodium Chloride Mini Bag 100 ML IVC SCH ×3 (12:53→22:36)
[2021-12-19] MEDS ORDERED: *HR* Heparin 5,000 UNIT/ML VIAL IVP PRN (13:44)
[2021-12-19] MEDS ORDERED: *HR* Alteplase (Cathflo) 2 MG VIAL IVP PRN (13:44)
[2021-12-19] MEDS ORDERED: 0.9 % Sodium Chloride 1,000 ML PRIME ONE ×2 (13:44)
[2021-12-19] MEDS ORDERED: 0.9 % Sodium Chloride 1,000 ML PRIME SCH (13:45)
[2021-12-19] MEDS ORDERED: PrismaSATE BGK 4/2.5 5,000 ML CRRT SCH ×2 (13:45)
[2021-12-19] MEDS: Octreotide 400 MCG in 0.9 % Sodium Chloride 100 ML IVC SCH (13:46)
[2021-12-19 21:13] LABS: Basophils % 0.1 %; Eosinophils # 0.1 K/mcL (0.0-0.6); Eosinophils % 1.6 %; Hematocrit 19.7 % (37.5-50.1); Hemoglobin 7.1 g/dL (12.9-16.9); Immature Granulocytes % 1.1 % (0-4); Lymphocytes # 0.8 K/mcL (0.6-4.6); Lymphocytes % 10.1 %; Mean Corpuscular Hemoglobin 33.8 pg (28.0-33.3); Mean Corpuscular Volume 93.8 fL (83.0-100.0); Mean Platelet Volume 11.7 fL (9.4-12.4); Monocytes # 0.3 K/mcL (0.0-1.3); Monocytes % 4.5 %; Neutrophils # 6.1 K/mcL (1.6-8.9); Platelet Count 104 K/mcL (140-400); Red Cell Distribution Width 16.1 % (11.5-14.5); Segmented Neutrophils % 82.6 %; White Blood Count 7.4 K/mcL (4.3-11.1)
[2021-12-20] MEDS: Acetylcysteine 10% 2 ML INHSOL IH SCH ×7 (00:10→23:07)
[2021-12-20] MEDS: Ipratropium/Albuterol Neb 3 ML IH SCH ×7 (00:10→23:07)
[2021-12-20] MEDS: *HR* OxyCODONE Immed Rel 5 MG TABLET PO SCH ×4 (00:44→17:06)
[2021-12-20] MEDS: Dexmedetomidine HCl 400 MCG/100 ML MLS IVC SCH ×6 (00:44→21:41)
[2021-12-20] MEDS: Cefepime HCl 1,000 MG in Water for inj. (sterile) 10 ML IVP SCH ×2 (00:45→11:28)
[2021-12-20] MEDS: Insulin LISPRO 300 UNITS/3 ML VIAL SUBQ SCH ×6 (00:45→20:28)
[2021-12-20] MEDS: Artificial Tears SOLN 15 ML BOTTLE BOTH EYES SCH ×6 (00:46→20:28)
[2021-12-20] MEDS: PHENYLEPHRINE IVC SCH ×2 (00:48→23:08)
[2021-12-20] MEDS: D5 IVC SCH ×2 (00:48→23:08)
[2021-12-20] MEDS: WATER IVC SCH ×2 (00:48→23:08)
[2021-12-20] MEDS: Octreotide 400 MCG in 0.9 % Sodium Chloride 100 ML IVC SCH ×3 (00:49→23:00)
[2021-12-20] MEDS: FentaNYL (PF) 1,000 MCG/100 ML IV.SOLN IVC SCH ×4 (02:11→20:58)
[2021-12-20] MEDS: Pantoprazole 40 MG in 0.9 % Sodium Chloride Mini Bag 100 ML IVC SCH ×5 (03:58→23:55)
[2021-12-20 04:40] LABS: ABG Base Excess 3 mEq/L (-2 to 3); ABG HCO3 28 mEq/L (21-27); ABG Oxygen Saturation 93 % (95-98); ABG PCO2 47 mmHg (35-45); ABG PH 7.39 pH Units (7.32-7.45); ABG PO2 70 mmHg (85-104); ABG TCO2 30 mEq/L (20-26); Blood Gas Modality ASSIST CONTROL; Blood Gas VT 500 cc
[2021-12-20] MEDS: *HR* Dextrose 50 % in Water (Syg) 50 ML SYRINGE IVP PRN ×3 (04:50→09:32)
[2021-12-20] MEDS: Norepinephrine 4 MG in D5% in Water 250 ML IVC SCH (07:21)
[2021-12-20 07:48] LABS: Basophils % 0.2 %; Eosinophils # 0.2 K/mcL (0.0-0.6); Eosinophils % 1.4 %; Hematocrit 24.3 % (37.5-50.1); Lymphocytes # 0.8 K/mcL (0.6-4.6); Lymphocytes % 7.5 %; Mean Corpuscular HGB Conc 32.9 g/dL (31.6-35.5); Mean Corpuscular Hemoglobin 30.5 pg (28.0-33.3); Mean Corpuscular Volume 92.7 fL (83.0-100.0); Mean Platelet Volume 11.8 fL (9.4-12.4); Monocytes # 0.6 K/mcL (0.0-1.3); Monocytes % 5.4 %; Neutrophils # 8.8 K/mcL (1.6-8.9); Platelet Count 136 K/mcL (140-400); Red Blood Count 2.62 M/mcL (4.19-5.50); Red Cell Distribution Width 15.8 % (11.5-14.5); Segmented Neutrophils % 84.5 %
[2021-12-20 07:49] LABS: White Blood Count 10.4 K/mcL (4.3-11.1)
[2021-12-20] MEDS: Insulin DETEMIR 100 UNIT/ML X5UNITS SUBQ SCH ×2 (07:49→20:31)
[2021-12-20] MEDS: Chlorhexidine Rinse 15 ML MOUTHWASH MM SCH ×2 (08:21→20:27)
[2021-12-20] MEDS: *HR* Amiodarone 200 MG TABLET PO SCH ×2 (08:21→20:27)
[2021-12-20] MEDS: QUEtiapine Fumarate 25 MG TABLET PO SCH ×2 (08:21→20:27)
[2021-12-20] MEDS ORDERED: D5% in 0.9% NACL 1,000 ML IVC SCH (09:30)
[2021-12-20 09:51] LABS: Hemoglobin 7.8 g/dL (12.9-16.9)
[2021-12-20 09:52] LABS: Calcium 7.1 mg/dL (8.6-10.3)
[2021-12-20 10:06] LABS: Albumin 2.7 g/dL (3.5-5.7); Albumin/Globulin Ratio 1.1 (1.1-2.2); Bilirubin,Total 0.5 mg/dL (0.3-1.0); Globulin 2.5 g/dL (2.4-3.5); Total Protein 5.2 g/dL (6.4-8.9)
[2021-12-20 12:29] LABS: Hematocrit 24.4 % (37.5-50.1)
[2021-12-20] MEDS ORDERED: Potassium Phosphate 44 MEQ in 0.9 % Sodium Chloride 250 ML IVPB PRN (12:57)
[2021-12-20] MEDS ORDERED: Furosemide 40 MG/4 ML VIAL IVP ONE (13:05)
[2021-12-20 14:49] LABS: Hematocrit 26.2 % (37.5-50.1); Hemoglobin 8.5 g/dL (12.9-16.9)
[2021-12-20 16:51] LABS: Hematocrit 25.5 % (37.5-50.1); Hemoglobin 8.4 g/dL (12.9-16.9)
[2021-12-20] MEDS: Meropenem 1,000 MG in 0.9 % Sodium Chloride 10 ML IVP SCH (17:04)
[2021-12-20 17:28] LABS: Calcium 7.5 mg/dL (8.6-10.3); Potassium 4.2 mEq/L (3.5-5.1)
[2021-12-20 21:10] LABS: VBG Ionized Calcium 0.93 mmol/L (1.15-1.35)
[2021-12-20] MEDS: Calcium Gluconate 1gm/50mL 1 GM/50 ML BAG IVPB PRN ×2 (21:24→22:11)
[2021-12-20 21:56] LABS: Calcium 7.5 mg/dL (8.6-10.3); Potassium 4.3 mEq/L (3.5-5.1)
[2021-12-21] MEDS: Insulin LISPRO 300 UNITS/3 ML VIAL SUBQ SCH ×6 (00:47→20:11)
[2021-12-21] MEDS: *HR* OxyCODONE Immed Rel 5 MG TABLET PO SCH ×4 (00:47→17:05)
[2021-12-21] MEDS: Artificial Tears SOLN 15 ML BOTTLE BOTH EYES SCH ×6 (00:47→20:12)
[2021-12-21] MEDS: Dexmedetomidine HCl 400 MCG/100 ML MLS IVC SCH ×5 (01:27→15:04)
[2021-12-21] MEDS: FentaNYL (PF) 1,000 MCG/100 ML IV.SOLN IVC SCH ×4 (02:41→18:53)
[2021-12-21] MEDS: Acetylcysteine 10% 2 ML INHSOL IH SCH (03:44)
[2021-12-21] MEDS: Ipratropium/Albuterol Neb 3 ML IH SCH ×6 (03:44→23:34)
[2021-12-21 03:57] LABS: Basophils % 0.3 %; Eosinophils # 0.2 K/mcL (0.0-0.6); Eosinophils % 2.3 %; Hematocrit 26.1 % (37.5-50.1); Hemoglobin 8.4 g/dL (12.9-16.9); Immature Granulocytes % 0.8 % (0-4); Lymphocytes # 0.9 K/mcL (0.6-4.6); Lymphocytes % 14.5 %; Mean Corpuscular HGB Conc 32.2 g/dL (31.6-35.5); Mean Corpuscular Hemoglobin 29.7 pg (28.0-33.3); Mean Corpuscular Volume 92.2 fL (83.0-100.0); Mean Platelet Volume 11.2 fL (9.4-12.4); Monocytes # 0.4 K/mcL (0.0-1.3); Monocytes % 6.2 %; Neutrophils # 4.9 K/mcL (1.6-8.9); Platelet Count 135 K/mcL (140-400); Red Blood Count 2.83 M/mcL (4.19-5.50); Red Cell Distribution Width 15.8 % (11.5-14.5); Segmented Neutrophils % 75.9 %; White Blood Count 6.5 K/mcL (4.3-11.1)
[2021-12-21 04:01] LABS: VBG Ionized Calcium 1.01 mmol/L (1.15-1.35)
[2021-12-21 04:02] LABS: INR 1.5
[2021-12-21 04:28] LABS: Albumin 2.7 g/dL (3.5-5.7); Albumin/Globulin Ratio 0.9 (1.1-2.2); Bilirubin,Total 0.6 mg/dL (0.3-1.0); Calcium 7.8 mg/dL (8.6-10.3); Magnesium 1.3 mg/dL (1.6-2.6); Phosphorous 5.5 mg/dL (2.7-4.5); Potassium 4.1 mEq/L (3.5-5.1); Total Protein 5.7 g/dL (6.4-8.9)
[2021-12-21 05:00] LABS: ABG Base Excess 0 mEq/L (-2 to 3); ABG HCO3 25 mEq/L (21-27); ABG Oxygen Saturation 86 % (95-98); ABG PCO2 41 mmHg (35-45); ABG PH 7.39 pH Units (7.32-7.45); ABG PO2 51 mmHg (85-104); ABG TCO2 26 mEq/L (20-26); Blood Gas VT 500 cc
[2021-12-21] MEDS: Pantoprazole 40 MG in 0.9 % Sodium Chloride Mini Bag 100 ML IVC SCH ×2 (05:10→10:07)
[2021-12-21] MEDS: Meropenem 1,000 MG in 0.9 % Sodium Chloride 10 ML IVP SCH ×3 (05:33→16:08)
[2021-12-21] MEDS: Calcium Gluconate 1gm/50mL 1 GM/50 ML BAG IVPB PRN (05:37)
[2021-12-21] MEDS: Chlorhexidine Rinse 15 ML MOUTHWASH MM SCH ×2 (08:46→19:44)
[2021-12-21] MEDS: Insulin DETEMIR 100 UNIT/ML X5UNITS SUBQ SCH ×3 (08:52→20:19)
[2021-12-21] MEDS: *HR* Amiodarone 200 MG TABLET PO SCH ×2 (08:53→19:45)
[2021-12-21] MEDS: QUEtiapine Fumarate 25 MG TABLET PO SCH ×2 (08:53→19:45)
[2021-12-21] MEDS ORDERED: D10% in Water 500 ML IVC PRN (11:35)
[2021-12-21] MEDS ORDERED: *HR* Heparin 5,000 UNIT/ML VIAL IVP PRN (12:07)
[2021-12-21] MEDS ORDERED: 0.9 % Sodium Chloride 1,000 ML PRIME ONE ×2 (12:07)
[2021-12-21] MEDS ORDERED: 0.9 % Sodium Chloride 1,000 ML PRIME SCH (12:15)
[2021-12-21] MEDS ORDERED: *HR* Heparin 5,000 UNIT/ML VIAL ONE (13:08)
[2021-12-21 13:52] LABS: Calcium 7.6 mg/dL (8.6-10.3); Magnesium 1.6 mg/dL (1.6-2.6); Potassium 3.8 mEq/L (3.5-5.1)
[2021-12-21] MEDS: PrismaSATE BGK 4/2.5 5,000 ML CRRT SCH ×5 (14:14→20:50)
[2021-12-21] MEDS ORDERED: 0.9 % Sodium Chloride 1,000 ML PRIME PRN (15:30)
[2021-12-21 16:41] LABS: Basophils % 0.2 %; Eosinophils # 0.1 K/mcL (0.0-0.6); Eosinophils % 2.3 %; Hematocrit 24.6 % (37.5-50.1); Hemoglobin 8.5 g/dL (12.9-16.9); Immature Granulocytes % 0.6 % (0-4); Lymphocytes # 0.7 K/mcL (0.6-4.6); Lymphocytes % 15.2 %; Mean Corpuscular HGB Conc 34.6 g/dL (31.6-35.5); Mean Corpuscular Hemoglobin 31.7 pg (28.0-33.3); Mean Corpuscular Volume 91.8 fL (83.0-100.0); Mean Platelet Volume 11.8 fL (9.4-12.4); Monocytes # 0.2 K/mcL (0.0-1.3); Monocytes % 4.9 %; Neutrophils # 3.8 K/mcL (1.6-8.9); Platelet Count 130 K/mcL (140-400); Red Blood Count 2.68 M/mcL (4.19-5.50); Red Cell Distribution Width 15.7 % (11.5-14.5); Segmented Neutrophils % 76.8 %; White Blood Count 4.9 K/mcL (4.3-11.1)
[2021-12-21] MEDS ORDERED: Clinimix 5%-20% SOLUTION 2,000 ML with MVI, adult with vitamin K 10 ML, Sodium Phosph... IVC SCH (17:00)
[2021-12-21] MEDS: Pantoprazole 40 MG VIAL IVP SCH (17:04)
[2021-12-21] MEDS ORDERED: *HR* Midazolam HCl 5 MG/5 ML VIAL IVP ONE ×2 (18:31→18:32)
[2021-12-21] MEDS: DOBUTamine 1,000 MG/250 ML BAG IVC SCH (18:45)
[2021-12-21] MEDS: Midazolam HCl 50 MG/50 ML IV.SOLN IVC SCH (18:46)
[2021-12-21 20:49] LABS: VBG Ionized Calcium 1.14 mmol/L (1.15-1.35)
[2021-12-21 21:04] LABS: Potassium 4.3 mEq/L (3.5-5.1)
[2021-12-22] MEDS: *HR* OxyCODONE Immed Rel 5 MG TABLET PO SCH ×4 (00:07→17:37)
[2021-12-22] MEDS: FentaNYL (PF) 1,000 MCG/100 ML IV.SOLN IVC SCH ×5 (00:08→22:58)
[2021-12-22] MEDS: Meropenem 1,000 MG in 0.9 % Sodium Chloride 10 ML IVP SCH ×3 (00:08→16:26)
[2021-12-22] MEDS: Artificial Tears SOLN 15 ML BOTTLE BOTH EYES SCH ×6 (00:20→20:31)
[2021-12-22] MEDS: Insulin LISPRO 300 UNITS/3 ML VIAL SUBQ SCH ×6 (00:20→20:40)
[2021-12-22] MEDS: WATER IVC SCH ×2 (01:00→23:00)
[2021-12-22] MEDS: D5 IVC SCH ×2 (01:00→23:00)
[2021-12-22] MEDS: PHENYLEPHRINE IVC SCH ×2 (01:00→23:00)
[2021-12-22] MEDS: PrismaSATE BGK 4/2.5 5,000 ML CRRT SCH ×10 (01:20→20:32)
[2021-12-22 03:52] LABS: Basophils % 0.3 %; Eosinophils # 0.1 K/mcL (0.0-0.6); Eosinophils % 1.1 %; Hematocrit 26.8 % (37.5-50.1); Hemoglobin 8.7 g/dL (12.9-16.9); Lymphocytes # 0.8 K/mcL (0.6-4.6); Mean Corpuscular HGB Conc 32.5 g/dL (31.6-35.5); Mean Corpuscular Hemoglobin 30.5 pg (28.0-33.3); Mean Platelet Volume 11.4 fL (9.4-12.4); Monocytes # 0.5 K/mcL (0.0-1.3); Monocytes % 6.4 %; Neutrophils # 6.5 K/mcL (1.6-8.9); Platelet Count 141 K/mcL (140-400); Red Blood Count 2.85 M/mcL (4.19-5.50); Red Cell Distribution Width 15.6 % (11.5-14.5); Segmented Neutrophils % 81.2 %
[2021-12-22 03:58] LABS: VBG Ionized Calcium 1.09 mmol/L (1.15-1.35)
[2021-12-22 04:10] LABS: Albumin 2.8 g/dL (3.5-5.7); Albumin/Globulin Ratio 0.8 (1.1-2.2); Bilirubin,Total 0.6 mg/dL (0.3-1.0); Globulin 3.5 g/dL (2.4-3.5); Magnesium 1.9 mg/dL (1.6-2.6); Phosphorous 4.3 mg/dL (2.7-4.5); Potassium 4.7 mEq/L (3.5-5.1); Total Protein 6.3 g/dL (6.4-8.9)
[2021-12-22] MEDS: Ipratropium/Albuterol Neb 3 ML IH SCH ×5 (04:10→19:38)
[2021-12-22 05:11] LABS: ABG Base Excess 1 mEq/L (-2 to 3); ABG HCO3 27 mEq/L (21-27); ABG Oxygen Saturation 98 % (95-98); ABG PCO2 48 mmHg (35-45); ABG PH 7.35 pH Units (7.32-7.45); ABG PO2 112 mmHg (85-104); ABG TCO2 28 mEq/L (20-26); Blood Gas Modality ASSIST CONTROL; Blood Gas VT 500 cc
[2021-12-22] MEDS: Pantoprazole 40 MG VIAL IVP SCH ×2 (05:23→17:37)
[2021-12-22] MEDS ORDERED: Calcium Gluconate 1gm/50mL 1 GM/50 ML BAG IVPB PRN ×2 (06:16)
[2021-12-22] MEDS ORDERED: Calcium Chloride 4,000 MG in 0.9 % Sodium Chloride 1,000 ML CRRT SCH (06:30)
[2021-12-22] MEDS ORDERED: 0.9 % Sodium Chloride 250 ML ONE (06:35)
[2021-12-22] MEDS: SODIUM CITRATE 500 ML CRRT SCH ×3 (07:46→21:00)
[2021-12-22] MEDS: Chlorhexidine Rinse 15 ML MOUTHWASH MM SCH ×2 (08:52→20:31)
[2021-12-22] MEDS: QUEtiapine Fumarate 25 MG TABLET PO SCH ×2 (08:52→20:31)
[2021-12-22] MEDS: *HR* Amiodarone 200 MG TABLET PO SCH ×2 (08:52→20:31)
[2021-12-22] MEDS: Insulin DETEMIR 100 UNIT/ML X5UNITS SUBQ SCH ×2 (08:55→20:44)
[2021-12-22 11:19] LABS: VBG Ionized Calcium 0.98 mmol/L (1.15-1.35)
[2021-12-22] MEDS: Calcium Gluconate 1gm/50mL 1 GM/50 ML BAG IVPB PRN (12:14)
[2021-12-22 16:11] VITALS: TEMP 98.4
[2021-12-22 16:41] LABS: VBG Ionized Calcium 1.04 mmol/L (1.15-1.35)
[2021-12-22] MEDS ORDERED: Clinimix E 5%-20% SOLUTION 2,000 ML with MVI, adult with vitamin K 10 ML IVC SCH (17:00)
[2021-12-22] MEDS: Midazolam HCl 50 MG/50 ML IV.SOLN IVC SCH (19:06)
[2021-12-22 19:07] LABS: VBG Ionized Calcium 1.18 mmol/L (1.15-1.35)
[2021-12-22] MEDS: DOBUTamine 1,000 MG/250 ML BAG IVC SCH (19:14)
[2021-12-22] MEDS ORDERED: *HR* Heparin 5,000 UNIT/ML VIAL ONE (20:43)
[2021-12-22 22:04] VITALS: BP 88/46; PULSE 86; O2SAT 95
== END 2021-12-22 23:10 | disposition short-term general hospital (02) | DRG 870 ==
LOC: EMEROOARM 19:04 → 2NENU 19:04 → ICNU 21:42
PROVIDERS: ADMIT Internal Medicine; ATTEND Internal Medicine